=== PATIENT | male | born 1945 | race Caucasian/White ===

== ENCOUNTER 2018-09-20 18:42 | Emergency (ER) | payer OTHER ==
[~2018-09-20] VITALS: Ht 182.9 cm; Wt 78.5 kg
[~2018-09-20 18:42] MED LIST: AMILORIDE HCL5 MG; AMLODIPINE BESY10 MG PO; ASPIRIN CHEW81 MG PO; ATENOLOL100 MG PO; LEVOTHYROXINE75 MCG PO; LOSARTAN POTASS50 MG PO; METFORMIN HCL500 MG PO; OMEPRAZOLE20 MG; PEPCID20 MG PO; PLAVIX75 MG PO; PRAVASTATIN SOD40 MG PO; ZOLPIDEM TARTRA10 MG PO
--- OUTSIDE RECORDS SUMMARY | 2018-09-20 18:45 | XMS REPORT ---
Author [facility] Address Unknown Phone Unavailable Care Team Providers Care Director Oracle Database Name Role Phone Walter HOFFMAN Unavailable Unavailable Problems This patient has no known problems. Allergies, Adverse Reactions, Alerts This patient has no known allergies or adverse reactions. Medications This patient has no known medications. Results Test Description Test Time Test Comments Text Results Atomic Results Result Comments CHEST 2 VIEWS [place] [address] Patient Name: JIM RIVERA MR #: [id number] : 1945 Age/Sex: 71/M Req #: [id number] Adm Physician: Ordered by: KRYSTA HOFFMAN MD Report #: [id number] Location: ER Room/Bed: Procedure: [id number] DX/CHEST 2 VIEWS Exam Date: 12/09/16 Exam Time: 2009 REPORT STATUS: Signed EXAMINATION: CHEST 2 VIEWS INDICATION: Hypertension COMPARISON: 05/27/2015 FINDINGS: TUBES and LINES: None. LUNGS: Lungs are well inflated. There are bibasilar atelectasis. There is no evidence of pneumonia or pulmonary edema. PLEURA: No pleural effusion or pneumothorax. HEART AND MEDIASTINUM: The cardiomediastinal silhouette is unremarkable. There are atherosclerotic calcifications within the aorta. BONES AND SOFT TISSUES: No acute osseous lesion. Soft tissues are unremarkable. UPPER ABDOMEN: No free air under the diaphragm. IMPRESSION: No acute thoracic abnormality. Signed by: Dr. Chris Rivas M.D. on 12/09/2016 8:29 PM Dictated By: CHRIS SEAMAN MD 28 Transcribed By: WILLA on 12/09/162028 COPY TO: KRYSTA HOFFMAN MD CT BRAIN WO [place] [address] Patient Name: JIM RIVERA MR #: [id number] : 1945 Age/Sex: 71/M Req #: [id number] Adm Physician: Ordered by: KRYSTA HOFFMAN MD Report #: [id number] Location: ER Room/Bed: Procedure: [id number] CT/CT BRAIN WO Exam Date: 12/09/16 Exam Time: 2009 REPORT STATUS: Signed EXAMINATION: Head CT without contrast. HISTORY:Dizziness, high blood pressure. COMPARISON:CT brain from 02/19/2014. TECHNIQUE: Multidetector axial images were obtained from the foramen magnum to the vertex without contrast. The images were reconstructed using brain and bone algorithms. Thin section brain images were reformatted into coronal and sagittal planes. Intravenous contrast: None IMAGE QUALITY: Acceptable . FINDINGS: Skull/scalp: No abnormality. Parenchyma: No abnormal density. No acute hemorrhage, mass or acute major vascular territorial infarct. Arteries: Atherosclerotic calcification in bilateral carotid siphon. Dural sinuses: No abnormal density suggestive of thrombosis. Ventricles: No hydrocephalus or displacement. Extra- axial spaces: No abnormal density. Brain volume: Moderate generalized cerebral volume loss Craniocervical junction: No mass, Chiari malformation, or basilar invagination. Sella: No mass. Paranasal/mastoid sinuses: Mild mucosal thickening in bilateral ethmoid sinuses. Incidental finding: Unchanged focal dystrophic calcification in right sylvian fissure may either represent a sequelae of prior infe ction/inflammation or trauma versus a vascular calcification. IMPRESSION: No acute intracranial abnormality. Moderate generalized cerebral volume loss. Signed by: Dr. Erin Perez M.D. on 12/09/2016 8:33 PM Dictated By: ERIN PEREZ MD 32 Transcribed By: WILLA on 12/09/162032 COPY TO: KRYSTA HOFFMAN MD
--- OUTSIDE RECORDS SUMMARY | 2018-09-20 18:45 | XMS REPORT ---
Author Organization Unknown Address [address] [place] [address] Phone [phone] Care Team Providers Care Personal Financial Planner Name Role Phone NILO "DANYELLE" YUE RIOS 3 [phone] LUIS HUERTA 59 Unavailable SHASHANK ZAMBRANO MD 115 [phone] LUIS FELIPE MORGAN MD 109 [phone] Allergies Code Code System Name Reaction Severity Status Onset NKDA Medications Name Status Start Date Stop Date amlodipine 10 mg tablet Take 1 tablet every day by oral route for 90 days. Active Not available atenolol 100 mg tablet Take 1 tablet every day by oral route for 90 days. Active Not available bupropion HCl XL 150 mg 24 hr tablet, extended release Completed 12/06/2016 celecoxib 200 mg capsule Take 1 capsule every day by oral route for 90 days. Active Not available cyclobenzaprine 10 mg tablet Active Not available Depo-Medrol 80 mg/mL suspension for injection Inject 80 mg, deep IM, once as a single dose Completed 04/24/2016 dicyclomine 10 mg capsule Take 1 capsule 3 times a day by oral route for 30 days. Completed 12/06/2016 gabapentin 300 mg capsule Take 1 capsule 3 times a day by oral route at bedtime for 90 days. Active Not available Golytely 227.1 gram-21.5 gram-6.36 gram oral powder packet 4L PO in divided doses Completed 07/18/2016 Golytely 236 gram-22.74 gram-6.74 gram-5.86 gram oral solution 4L PO in divided doses Completed 07/18/2016 hydrocodone 10 mg-acetaminophen 325 mg tablet Active Not available levofloxacin 500 mg tablet Completed 07/18/2016 levothyroxine 75 mcg tablet Take 1 tablet by oral route for 90 days. Active Not available lidocaine 5 % topical ointment Completed 12/06/2016 losartan 100 mg tablet Take 1 tablet every day by oral route. Active Not available meclizine 12.5 mg tablet Active Not available metformin 500 mg tablet Active Not available methylprednisolone 4 mg tablets in a dose pack Completed 07/04/2017 naproxen 500 mg tablet Active Not available omeprazole 20 mg capsule,delayed release Take 1 capsule by oral route for 90 days. Active Not available pravastatin 80 mg tablet Take 1 tablet every day by oral route for 90 days. Active Not available zolpidem 10 mg tablet Take 1 tablet every day by oral route. 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 History Pure Hypercholesterolemia Active 01/06/2015 History Nicotine Dependence Active 01/06/2015 History Insomnia Unknown 01/06/2015 History Hypertensive Heart Disease Active 01/06/2015 History Old Myocardial Infarction Active 01/06/2015 History Osteoarthritis of Knee Active 01/06/2015 History History of Placement of Stent for Coronary Artery Disease Active 01/06/2015 History History of Total Knee Arthroplasty Active 01/06/2015 History Long-term Current Use of Drug Therapy Active 01/06/2015 History Pain in Left Knee Active 01/06/2015 History Idiopathic Osteoarthritis Active 03/16/2015 History Continuous Opioid Dependence Active 02/21/2016 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 History of Left Total Knee Replacement Active 02/21/2016 Chronic Low Back Pain Active 04/24/2016 Degenerative Lumbar Spinal Stenosis Active 05/23/2016 Procedures Date Name Performed by Knee Surgery Notes: 2012 Information not available Angioplasty Notes: 1999 Information not available Low Back Disk Surgery Notes: 1993 Information not available Tonsillectomy Notes: 1967 Information not available Hernia Repair Notes: 1962 Information not available 04/24/2016 MRI, Lumbar Spine, W/o Contrast [place] [employer] [facility] ([facility] Imaging) [address] [place] [address] (Work Place) Lab Results Date Name Specimen Result Interpretation Description Value Range Status Address 10/25/2016 CMP, Serum or Plasma Normal Glucose 90 mg/dL 65-99 mg/dL Final [facility] Laboratory: [address] Normal Urea Nitrogen (BUN) 21 mg/dL 7-25 mg/dL Final [facility]: [address] Normal Creatinine 1.00 mg/dL 0.70-1.18 mg/dL Final [facility]: 9055 Nancy Mendoza [address] [place] [address] Normal eGFR Non-afr. Gren[place] 74 mL/min/1.73m2 > or=60 mL/min/1.73m2 Final [facility]: [facility]055 [facility] eGFR 86 mL/min/1.73m2 > or=60 mL/min/1.73m2 Final [facility]: [address]055 Nancy Godoy [address] BUN/creatinine Ratio not applicable (calc) 6-22 (calc) Final [facility]: 9055 [facility] Normal Sodium 141 mmol/L 135-146 mmol/L Final [facility]: 9055 Nancy Mendoza [address] [place] [address] Normal Potassium 4.9 mmol/L 3.5-5.3 mmol/L Final [facility]: 9055 [facility] Normal Chloride 104 mmol/L 98-110 mmol/L Final [facility]: 9055 Nancy Mendoza [address] [place] [address] Normal Carbon Dioxide 31 mmol/L 20-31 mmol/L Final [facility]: 9055 Nancy Mendoza [address] [place] [address] Normal Calcium 9.7 mg/dL 8.6-10.3 mg/dL Final [facility]: 9055 [facility] Normal Protein, Total 7.4 g/dL 6.1-8.1 g/dL Final [facility]: 9055 Nancy Mendoza [address] [place] [address] Normal Albumin 4.6 g/dL 3.6-5.1 g/dL Final [facility]: 9055 [facility] Globulin 2.8 g/dL (calc) 1.9-3.7 g/dL (calc) Final [facility]: 9055 Nancy Mendoza [address] [place] [address] Normal Albumin/globulin Ratio 1.6 (calc) 1.0-2.5 (calc) Final [facility]: 9055 [facility] Normal Bilirubin, Total 1.0 mg/dL 0.2-1.2 mg/dL Final [facility]: 9055 [facility] Normal Alkaline Phosphatase 83 U/L 40-115 U/L Final [facility]: 9055 [facility] Normal Ast 26 U/L 10-35 U/L Final [facility]: 9055 Nancy Crump [place] Normal Alt 22 U/L 9-46 U/L Final [facility]: 9055 Nancy Crump, [place] 10/25/2016 T4, Total, Serum Normal T4 (Thyroxine), Total 10.5 mcg/dL 4.5-12.0 mcg/dL Final [facility]: 9055 [facility] 10/25/2016 TSH, Serum or Plasma Normal Tsh 2.45 mIU/L 0.40-4.50 mIU/L Final [facility]: 9055 Nancy Crump, [place] 10/25/2016 CBC W/ Auto Diff Normal White Blood Cell Count 8.5 thousand/uL 3.8-10.8 thousand/uL Final [facility]: 9055 Nancy Mendoza [address] [place] [address] Normal Red Blood Cell Count 5.16 million/uL 4.20-5.80 million/uL Final [facility]: 9055 [facility] Normal Hemoglobin 15.0 g/dL 13.2-17.1 g/dL Final [facility]: 9055 Nancy Mendoza [address] [place] [address] Normal Hematocrit 45.2 % 38.5-50.0 % Final [facility]: 9055 Nancy Crump [place] Normal Mcv 87.6 fL 80.0-100.0 fL Final [facility]: 9055 [facility] Normal Mch 29.1 pg 27.0-33.0 pg Final [facility]: 9055 [facility] Normal Mchc 33.2 g/dL 32.0-36.0 g/dL Final [facility]: 9055 [facility] Normal Rdw 12.8 % 11.0-15.0 % Final [facility]: 9055 Nancy Crump [place] Normal Platelet Count 338 thousand/uL 140-400 thousand/uL Final [facility]: 9055 [facility] Normal Mpv 9.3 fL 7.5-12.5 fL Final [facility]: 9055 [facility] Normal Absolute Neutrophils 4888 cells/uL 2762-9121 cells/uL Final [facility]: 9055 Nancy Godoy [place] [address] [place] Normal Absolute Lymphocytes 2491 cells/uL 850-3900 cells/uL Final [facility]: 9055 Nancy Godoy [facility] [place] Normal Absolute Monocytes 638 cells/uL 200-950 cells/uL Final [facility]: 9055 Nancy Godoy [facility] Absolute Eosinophils 434 cells/uL 15-500 cells/uL Final [facility]: 9055 Nancy Godoy [facility] [place] Normal Absolute Basophils 51 cells/uL 0-200 cells/uL Final [facility]: 9055 Nancy Godoy [place] [address], [place] Normal Neutrophils 57.5 % Final [facility]: 9055 Nancy landy [place] [address], [place] Normal Lymphocytes 29.3 % Final [facility]: 9055 Nancy Godoy [address] Normal Monocytes 7.5 % Final [facility]: 9055 Nancy Godoy [address] Normal Eosinophils 5.1 % Final [facility]: 9055 Nancy Godoy [address] Normal Basophils 0.6 % Final [facility] Laboratory: [address] 10/25/2016 HbA1C (Hemoglobin a1C), Blood High Hemoglobin a1C 5.9 % of total HGB <5.7 % of total HGB Final [facility]: [address] EAG (mg/dL) 123 (calc) Final [facility]: [address] EAG (mmol/L) 6.8 (calc) [facility]: [address] 10/25/2016 Testosterone, Total, Serum Normal Testosterone, Total, Males (Adult), Ia 268 NG/dL 250-827 NG/dL Final [facility]: 9055 [facility] 09/16/2015 LDL, Serum Ldl 57 09/16/2015 HbA1C (Hemoglobin a1C), Blood A1C 6.0 Urinalysis, Dipstick Color Color dark yellow [facility] [place]: [address], [place] Color Appearance clear [facility]: [address], [place] Color Glucose negative [facility] [place]: [address], [place] Color Bilirubin negative [facility] [place]: [address], [place] Color Ketones negative [facility] [place]: [address] [place] [address], [place] Color Specific [place] 1.015 [facility]: [address] [place] [address], [place] Color Blood moderate [facility]: [address] [facility] [address], [place] Color PH 7.0 [facility]: [address] [facility] [address], [place] Color Protein 30 [facility]: [address] [facility] [address], [place] Color Urobilinogen 0.2 [facility]: [address] [place] [address], [place] Color Nitrites negative [facility]: [address] [place] [address], [place] Color Leukocytes negative [facility]: [address] [place] [address], [place] Past Encounters 07/04/2017 Body Mass Index 25-29 - Overweight; Hypertensive Heart Disease; Chronic Low Back Pain; Insomnia Disorder Related to Known Organic Factor; Long-term Current Use of Drug Therapy; Hypothyroidism; Pure Hypercholesterolemia; Pain in Left Knee; Gastroesophageal Reflux Disease; Nicotine Dependence; Atherosclerosis of Arteries of the Extremities; Chronic Obstructive Lung Disease Nilo Chairez MD: [address] [address], Ph. 05/21/2017 Hypertensive Heart Disease; Type 2 Diabetes Mellitus without Complication [place] Jackt: [address] [address], Ph. 04/09/2017 Body Mass Index 25-29 - Overweight; Type 2 Diabetes Mellitus; Insomnia Disorder Related to Known Organic Factor; History of Left Total Knee Replacement; Pain in Left Knee; Opioid Dependence; Mild Recurrent Major Depression Nilo Chairez MD: [address] [address], Ph. 02/27/2017 Hypertensive Heart Disease; Type 2 Diabetes Mellitus without Complication Luis Jackt: [address] [address], Ph. 02/05/2017 Opioid Dependence; Pain in Left Knee; Hypertensive Heart Disease; Insomnia Disorder Related to Known Organic Factor; Pure Hypercholesterolemia; Gastroesophageal Reflux Disease; Nicotine Dependence; Immunization Nilo Chairez MD: [address] [address], Ph. 01/02/2017 Hypertensive Heart Disease; Type 2 Diabetes Mellitus without Complication Cassaine Huerta: 9055 [facility], [address] [address], Ph. 12/26/2016 Cassaine Huerta: [address] [address], Ph. 12/25/2016 Postural Dizziness Nilo Chairez MD: [address] [address], Ph. 12/06/2016 Pain in Left Knee; Hypothyroidism; Insomnia Disorder Related to Known Organic Factor Nilo Chairez MD: [address] [address], Ph. 10/25/2016 Adult Health Examination; Body Mass Index 25-29 - Overweight; Type 2 Diabetes Mellitus without Complication; Hypertensive Heart Disease; History of Placement of Stent for Coronary Artery Disease; Mild Recurrent Major Depression; History of Left Total Knee Replacement; Testicular Hypofunction; Old Myocardial Infarction; Continuous Opioid Dependence; Degenerative Lumbar Spinal Stenosis; Pain in Left Knee; Hypothyroidism; Nicotine Dependence; Insomnia Disorder Related to Known Organic Factor; Advance Directive Discussed with Patient; Screening for Malignant Neoplasm of Prostate; Screening for Malignant Neoplasm of Colon Nilo Chairez MD: [address] [address], Ph. 10/09/2016 Hypertensive Heart Disease; Type 2 Diabetes Mellitus without Complication Cassaine Huerta: [address] [address], Ph. 09/25/2016 Pain in Left Knee; History of Left Total Knee Replacement; Type 2 Diabetes Mellitus without Complication; Hypertensive Heart Disease; Old Myocardial Infarction; Insomnia Disorder Related to Known Organic Factor Nilo Chairez MD: [address] [address], Ph. 09/01/2016 Cassaine Huerta: [address] [address], Ph. 08/17/2016 Pain in Left Knee Nilo Chairez MD: 86197 [facility], [place] [address], [place] [address], Ph. 08/14/2016 Luis Jackt: 9055 Nancy [facility], [place] [address], [place] [address], Ph. 07/31/2016 Danna Chairez: [address] [place] [address], [place] [address], Ph. 07/18/2016 Hypertensive Heart Disease; Pain in Left Knee; Insomnia Disorder Related to Known Organic Factor; Gastroesophageal Reflux Disease; Moderate Recurrent Major Depression Nilo Chairez MD: 79505 [facility], [address] [address], Ph. 07/13/2016 Luis Jackt: [address] [address], Ph. 06/27/2016 Painless Rectal Bleeding; Cholelithiasis without Obstruction; Chronic Low Back Pain Nilo Chairez MD: 26356 [facility], [address] [address], Ph. 06/21/2016 Pain in Left Knee; Insomnia Disorder Related to Known Organic Factor; Degenerative Lumbar Spinal Stenosis Nilo Chairez MD: 38583 [facility], [address] [address], Ph. 06/06/2016 Luis Huerta: [address] [address], Ph. 05/23/2016 Type 2 Diabetes Mellitus; Hypothyroidism; Insomnia Disorder Related to Known Organic Factor; Pain in Left Knee; Pure Hypercholesterolemia; Degenerative Lumbar Spinal Stenosis; Sensory Disorder of Smell And/or Taste; Blood in Urine Nilo Chairez MD: 18034 [facility], [address] [address], Ph. 05/10/2016 Luis Huerta: 9[facility] [address] [address], Ph. 04/25/2016 Luis Huerta: 9055 Nancy [facility], [facility] [address] [address], Ph. 04/24/2016 Mononeuropathy of Lower Limb; Chronic Low Back Pain; Type 2 Diabetes Mellitus; Pain in Left Knee; Pure Hypercholesterolemia; Insomnia Disorder Related to Known Organic Factor; Continuous Opioid Dependence Nilo Chairez MD: [address] [address], Ph. 03/21/2016 Pain in Left Knee; Insomnia Disorder Related to Known Organic Factor; Hypertensive Heart Disease Nilo Chairez MD: [address] [address], Ph. 02/21/2016 Pain in Left Knee; History of Left Total Knee Replacement; Insomnia Disorder Related to Known Organic Factor; Idiopathic Osteoarthritis; Continuous Opioid Dependence Nilo Chairez MD: [address] [address], Ph. 01/05/2016 Hypothyroidism; Gastroesophageal Reflux Disease; Insomnia; Osteoarthritis of Knee; Pain in Left Knee; Essential Hypertension; Old Myocardial Infarction; Seasonal Allergic Rhinitis Nilo Chairez MD: [address] [address], Ph. Social History Smoking Status Heavy Tobacco Smoker (1/2 PPD) Vaccine List Vaccine Type influenza, high dose seasonal 02/05/20170.5 mL influenza, seasonal, injectable 01/07/2014 12/15/2014 pneumococcal polysaccharide PPV23 02/05/20170.5 mL pneumococcal, unspecified formulation 04/02/2012 Tdap 04/02/2007 Notes: decline's all vaccine's -07/04/2017-marty Plan of Care Patient Instructions Problem: The patient has a diagnosis of DIABETES Goal:The patients condition will be managed in the outpatient setting and the patients blood sugar will be within normal range. Interventions: -Educate the pt on the importance of blood glucose monitoring daily, keeping a log and taking medications as prescribed. - Educate the importance of eating small healthy meals such as fish chicken, complex carbohydrates-legumes, and whole grains, to stabilize blood sugars. (Refer to rodding anode worker if appropriate) -Educate pt on the s/s of hypoglycemia such as vertigo, CAICEDO, confusion, weakness, anxiety, nervousness, light headed, sweaty, hungry and rapid HR. -Educate patient if blood sugar is <70 or if having any symptoms of hypoglycemia, take one of followin/2 can of regular soda pop, 1 tablespoon of sugar, 1/2 cup of orange juice, or 1 cup of milk. -Educate pt on the S/S of hyperglycemia such as blurred vision, fatigue, CAICEDO, frequent urination, increased thirst. -Educate the pt that a HgAIC is an average of their blood glucose levels over the past 3 months and that it is important to have lab draw q3-6 months. -Educate the patient on importance of annual flu and pneumonia vaccinations -Educate pt that they will need a dilated eye exam and a comprehensive foot exam yearly, and a daily self exam of their feet.(check for dry, cracked skin, look for blisters, cuts scratches, or other sores, check for redness, increased warmth or tenderness when you touch an area, watch for ingrown toenails, corns, and calluses) -Educate pt that they will need a lipid profile yearly,(women)HDL>50LDL<100/TG<150/HDL>40 (men) -Educate the patient on consistent glucose monitoring and when to report values to the provider. Contact Provider if blood glucose is consistently > 240 after taking medications, or if blood glucose is < 60 or patient is symptomatic after interventions. Problem:The patient has a diagnosis of Hypertension Goal:The patients condition will be managed in the outpatient setting and blood pressure will be within normal limits. Interventions: -Encourage patient to take medication as prescribed. -Encourage patient to decrease sodium intake and eat fruits/vegetables. Limit processed foods and caffeinated drinks. -Encourage patient to monitor blood pressure and keep a log with readings. Bring readings to next scheduled appointment. -Encourage pt to exercise regularly 3-5 times a week for 30 min, unless the patients activity is restricted by the provider. Educate to stay at a healthy weight. Losing weight can lower your blood pressure -Educate patient that hypertension usually has no symptoms but some people may experience the following symptoms: blurred vision, fatigue, nose bleeds, chest pain, and swooshing sound in ears. -Educate pt to avoid smoking. Smoking can increase your risk for heart attack and stroke. Problem: The patient has a diagnosis of DIABETES Goal:The patients condition will be managed in the outpatient setting and the patients blood sugar will be within normal range. Interventions: -Educate the pt on the importance of blood glucose monitoring daily, keeping a log and taking medications as prescribed. - Educate the importance of eating small healthy meals such as fish chicken, complex carbohydrates-legumes, and whole grains, to stabilize blood sugars. (Refer to rodding anode worker if appropriate) -Educate pt on the s/s of hypoglycemia such as vertigo, CAICEDO, confusion, weakness, anxiety, nervousness, light headed, sweaty, hungry and rapid HR. -Educate patient if blood sugar is <70 or if having any symptoms of hypoglycemia, take one of followin/2 can of regular soda pop, 1 tablespoon of sugar, 1/2 cup of orange juice, or 1 cup of milk. -Educate pt on the S/S of hyperglycemia such as blurred vision, fatigue, CAICEDO, frequent urination, increased thirst. -Educate the pt that a HgAIC is an average of their blood glucose levels over the past 3 months and that it is important to have lab draw q3-6 months. -Educate the patient on importance of annual flu and pneumonia vaccinations -Educate pt that they will need a dilated eye exam and a comprehensive foot exam yearly, and a daily self exam of their feet.(check for dry, cracked skin, look for blisters, cuts scratches, or other sores, check for redness, increased warmth or tenderness when you touch an area, watch for ingrown toenails, corns, and calluses) -Educate pt that they will need a lipid profile yearly,(women)HDL>50LDL<100/TG<150/HDL>40 (men) -Educate the patient on consistent glucose monitoring and when to report values to the provider. Contact Provider if blood glucose is consistently > 240 after taking medications, or if blood glucose is < 60 or patient is symptomatic after interventions. Problem:The patient has a diagnosis of Hypertension Goal:The patients condition will be managed in the outpatient setting and blood pressure will be within normal limits. Interventions: -Encourage patient to take medication as prescribed. -Encourage patient to decrease sodium intake and eat fruits/vegetables. Limit processed foods and caffeinated drinks. -Encourage patient to monitor blood pressure and keep a log with readings. Bring readings to next scheduled appointment. -Encourage pt to exercise regularly 3-5 times a week for 30 min, unless the patients activity is restricted by the provider. Educate to stay at a healthy weight. Losing weight can lower your blood pressure -Educate patient that hypertension usually has no symptoms but some people may experience the following symptoms: blurred vision, fatigue, nose bleeds, chest pain, and swooshing sound in ears. -Educate pt to avoid smoking. Smoking can increase your risk for heart attack and stroke. Problem: The patient has a diagnosis of DIABETES Goal:The patients condition will be managed in the outpatient setting and the patients blood sugar will be within normal range. Interventions: -Educate the pt on the importance of blood glucose monitoring daily, keeping a log and taking medications as prescribed. - Educate the importance of eating small healthy meals such as fish chicken, complex carbohydrates-legumes, and whole grains, to stabilize blood sugars. (Refer to rodding anode worker if appropriate) -Educate pt on the s/s of hypoglycemia such as vertigo, CAICEDO, confusion, weakness, anxiety, nervousness, light headed, sweaty, hungry and rapid HR. -Educate patient if blood sugar is <70 or if having any symptoms of hypoglycemia, take one of followin/2 can of regular soda pop, 1 tablespoon of sugar, 1/2 cup of orange juice, or 1 cup of milk. -Educate pt on the S/S of hyperglycemia such as blurred vision, fatigue, CAICEDO, frequent urination, increased thirst. -Educate the pt that a HgAIC is an average of their blood glucose levels over the past 3 months and that it is important to have lab draw q3-6 months. -Educate the patient on importance of annual flu and pneumonia vaccinations -Educate pt that they will need a dilated eye exam and a comprehensive foot exam yearly, and a daily self exam of their feet.(check for dry, cracked skin, look for blisters, cuts scratches, or other sores, check for redness, increased warmth or tenderness when you touch an area, watch for ingrown toenails, corns, and calluses) -Educate pt that they will need a lipid profile yearly,(women)HDL>50LDL<100/TG<150/HDL>40 (men) -Educate the patient on consistent glucose monitoring and when to report values to the provider. Contact Provider if blood glucose is consistently > 240 after taking medications, or if blood glucose is < 60 or patient is symptomatic after interventions. Problem: The patient has a diagnosis of DIABETES Goal:The patients condition will be managed in the outpatient setting and the patients blood sugar will be within normal range. Interventions: -Educate the pt on the importance of blood glucose monitoring daily, keeping a log and taking medications as prescribed. - Educate the importance of eating small healthy meals such as fish chicken, complex carbohydrates-legumes, and whole grains, to stabilize blood sugars. (Refer to rodding anode worker if appropriate) -Educate pt on the s/s of hypoglycemia such as vertigo, CAICEDO, confusion, weakness, anxiety, nervousness, light headed, sweaty, hungry and rapid HR. -Educate patient if blood sugar is <70 or if having any symptoms of hypoglycemia, take one of followin/2 can of regular soda pop, 1 tablespoon of sugar, 1/2 cup of orange juice, or 1 cup of milk. -Educate pt on the S/S of hyperglycemia such as blurred vision, fatigue, CAICEDO, frequent urination, increased thirst. -Educate the pt that a HgAIC is an average of their blood glucose levels over the past 3 months and that it is important to have lab draw q3-6 months. -Educate the patient on importance of annual flu and pneumonia vaccinations -Educate pt that they will need a dilated eye exam and a comprehensive foot exam yearly, and a daily self exam of their feet.(check for dry, cracked skin, look for blisters, cuts scratches, or other sores, check for redness, increased warmth or tenderness when you touch an area, watch for ingrown toenails, corns, and calluses) -Educate pt that they will need a lipid profile yearly,(women)HDL>50LDL<100/TG<150/HDL>40 (men) -Educate the patient on consistent glucose monitoring and when to report values to the provider. Contact Provider if blood glucose is consistently > 240 after taking medications, or if blood glucose is < 60 or patient is symptomatic after interventions. Reminders Provider Appointments None recorded. Lab None recorded. Referral None recorded. Procedures None recorded. Surgeries None recorded. Imaging None recorded. Vitals 07/04/2017 10:15AM Est Patient Height Weight BMI Blood Pressure 5 ft 10 in 182 lbs 26.1 kg/m2 138/72 mm[Hg] 04/09/2017 01:45PM Est Patient Height Weight BMI Blood Pressure 5 ft 10 in 183.6 lbs 26.3 kg/m2 130/75 mm[Hg] 02/05/2017 01:45PM Est Patient Height Weight BMI Blood Pressure 5 ft 10 in 183 lbs 26.3 kg/m2 129/80 mm[Hg] 12/25/2016 03:30PM Est Patient Height Weight BMI Blood Pressure 5 ft 10 in 181.8 lbs 26.1 kg/m2 126/72 mm[Hg] 12/06/2016 03:45PM Est Patient Height Weight BMI Blood Pressure 5 ft 10 in 181.8 lbs 26.1 kg/m2 122/71 mm[Hg] 10/25/2016 02:30PM AWV Height Weight BMI Blood Pressure 5 ft 10 in 180 lbs 25.8 kg/m2 127/80 mm[Hg] 09/25/2016 03:00PM Est Patient Height Weight BMI Blood Pressure 5 ft 10 in 183 lbs 26.3 kg/m2 133/85 mm[Hg] 08/17/2016 02:30PM Est Patient Height Weight BMI Blood Pressure 5 ft 10 in 183.4 lbs 26.3 kg/m2 130/77 mm[Hg] 07/18/2016 01:45PM Est Patient Height Weight BMI Blood Pressure 5 ft 10 in 182.2 lbs 26.1 kg/m2 145/87 mm[Hg] 06/27/2016 04:15PM Est Patient Height Weight BMI Blood Pressure 5 ft 10 in 181.6 lbs 26.1 kg/m2 121/75 mm[Hg] 06/21/2016 01:30PM Est Patient Height Weight BMI Blood Pressure 5 ft 10 in 180 lbs 25.8 kg/m2 147/83 mm[Hg] 05/23/2016 01:30PM Est Patient Height Weight BMI Blood Pressure 5 ft 10 in 182.6 lbs 26.2 kg/m2 135/82 mm[Hg] 04/24/2016 02:30PM Est Patient Height Weight BMI Blood Pressure 5 ft 10 in 183 lbs 26.3 kg/m2 134/80 mm[Hg] 03/21/2016 02:30PM Est Patient Height Weight BMI Blood Pressure 5 ft 10 in 184 lbs 26.4 kg/m2 139/82 mm[Hg] 02/21/2016 02:45PM Est Patient Height Weight BMI Blood Pressure 5 ft 10 in 182.2 lbs 26.1 kg/m2 140/80 mm[Hg] 01/05/2016 11:00AM Est Patient Height Weight BMI Blood Pressure 5 ft 10 in 183.2 lbs 26.3 kg/m2 162/82 mm[Hg] 09/16/2015 Height Weight BMI Blood Pressure 5 ft 10 in 179.4 lbs 25.74 kg/m2 146/76 mm[Hg] 08/10/2015 Height Weight BMI Blood Pressure 5 ft 10 in 179.2 lbs 25.71 kg/m2 163/84 mm[Hg] 07/22/2015 Height Weight BMI Blood Pressure 5 ft 10 in 180 lbs 25.82 kg/m2 149/77 mm[Hg] 06/07/2015 Height Weight BMI Blood Pressure 5 ft 10 in 177.6 lbs 25.48 kg/m2 122/60 mm[Hg] 05/13/2015 BMI 25.54 kg/m2 05/13/2015 Height Weight Blood Pressure 5 ft 10 in 178 lbs 110/80 mm[Hg] 03/16/2015 Height Weight BMI Blood Pressure 5 ft 10 in 182.4 lbs 26.17 kg/m2 140/76 mm[Hg] 02/08/2015 Height Weight BMI Blood Pressure 5 ft 10 in 183.4 lbs 26.31 kg/m2 130/68 mm[Hg] 01/06/2015 Height Weight BMI Blood Pressure 5 ft 10 in 183.8 lbs 26.37 kg/m2 140/72 mm[Hg] 12/15/2014 Height Weight BMI Blood Pressure 5 ft 10 in 180.8 lbs 25.94 kg/m2 132/71 mm[Hg] 11/10/2014 Height Weight BMI Blood Pressure 5 ft 10 in 188 lbs 26.97 kg/m2 150/70 mm[Hg] 11/02/2014 Height Weight BMI Blood Pressure 5 ft 10 in 187.4 lbs 26.89 kg/m2 122/74 mm[Hg] 09/28/2014 Height Weight BMI Blood Pressure 5 ft 10 in 187.2 lbs 26.86 kg/m2 126/72 mm[Hg] 09/21/2014 Height Weight BMI Blood Pressure 5 ft 10 in 186.6 lbs 26.77 kg/m2 140/76 mm[Hg] 09/04/2014 Height Weight BMI Blood Pressure 5 ft 10 in 181.4 lbs 26.03 kg/m2 132/76 mm[Hg] 08/03/2014 Height Weight BMI Blood Pressure 5 ft 10 in 184.6 lbs 26.48 kg/m2 134/70 mm[Hg] 07/10/2014 Height Weight BMI Blood Pressure 5 ft 10 in 183.4 lbs 26.31 kg/m2 120/71 mm[Hg] 06/08/2014 Height Weight BMI Blood Pressure 5 ft 10 in 186.8 lbs 26.80 kg/m2 120/60 mm[Hg] 05/12/2014 Height Weight BMI Blood Pressure 5 ft 10 in 186 lbs 26.69 kg/m2 120/70 mm[Hg] 04/14/2014 Weight Blood Pressure 183.2 lbs 120/70 mm[Hg] 04/14/2014 Height BMI 5 ft 10 in 26.28 kg/m2 03/30/2014 Height Weight BMI Blood Pressure 5 ft 10 in 183.8 lbs 26.37 kg/m2 122/70 mm[Hg] 03/11/2014 Height Weight BMI Blood Pressure 5 ft 10 in 185.6 lbs 26.63 kg/m2 130/70 mm[Hg] 02/24/2014 Height Weight BMI Blood Pressure 5 ft 10 in 183.4 lbs 26.31 kg/m2 140/80 mm[Hg] 02/03/2014 Height Weight BMI Blood Pressure 5 ft 10 in 184.6 lbs 26.48 kg/m2 130/70 mm[Hg] 01/07/2014 Weight Blood Pressure 186 lbs 130/80 mm[Hg] 01/07/2014 Height BMI 5 ft 10 in 26.69 kg/m2 01/06/2014 Height Weight BMI Blood Pressure 5 ft 10 in 186 lbs 26.69 kg/m2 130/80 mm[Hg] 11/26/2013 Height Weight 5 ft 10 in 185 lbs 11/05/2013 Height Weight 5 ft 10 in 189.6 lbs 09/10/2013 Height Weight 5 ft 10 in 188.8 lbs 06/16/2013 Height Weight 5 ft 10 in 197.6 lbs 04/21/2013 Height Weight 5 ft 10 in 195.6 lbs 04/04/2013 Height Weight 5 ft 10 in 196.2 lbs 03/17/2013 Height Weight 5 ft 10 in 198.9 lbs 01/02/2013 Height Weight 5 ft 10 in 199.2 lbs 12/11/2012 Height Weight 5 ft 10 in 200.8 lbs 11/28/2012 Height Weight 5 ft 10 in 201.8 lbs 07/10/2012 Height Weight 5 ft 10 in 191 lbs 05/27/2012 Height Weight 5 ft 10 in 189.4 lbs 12/12/2011 Height Weight 5 ft 10 in 197.2 lbs 11/13/2011 Height Weight 5 ft 10 in 201.6 lbs 09/29/2011 Height Weight 5 ft 10 in 201 lbs 08/31/2011 Height Weight 5 ft 10 in 176 lbs 08/09/2011 Height Weight 5 ft 10 in 201.6 lbs 06/21/2011 Height Weight 5 ft 10 in 203.2 lbs 05/26/2011 Height Weight 5 ft 10 in 204.6 lbs 04/14/2011 Height Weight 5 ft 10 in 199.8 lbs 02/06/2011 Height Weight 5 ft 10 in 199.2 lbs 12/19/2010 Height Weight 5 ft 10 in 197.6 lbs 10/05/2010 Height Weight 5 ft 10 in 197.6 lbs 07/11/2010 Height Weight 5 ft 10 in 199 lbs 07/05/2010 Height 5 ft 10 in 07/05/2010 Weight 199 lbs 03/18/2010 Height Weight 5 ft 10 in 202.6 lbs 03/11/2010 Height Weight 5 ft 10 in 204.4 lbs 03/07/2010 Height Weight 5 ft 10 in 204.6 lbs 12/23/2009 Height Weight 5 ft 10 in 204.2 lbs 11/11/2009 Weight 202 lbs 10/27/2009 Weight 202.6 lbs 08/23/2009 Weight 202 lbs 08/05/2009 Weight 202.6 lbs 06/23/2009 Weight 200 lbs 06/16/2009 Weight 199 lbs 06/09/2009 Height Weight 5 ft 10 in 196 lbs 02/03/2009 Weight 196 lbs 01/01/2009 Weight 196 lbs 12/30/2007 Weight 199 lbs 07/01/2007 Weight 195.3 lbs 03/14/2007 Weight 194.9 lbs 03/04/2007 Height Weight 6 ft 201.1 lbs 10/29/2006 Weight 200.2 lbs 05/31/2006 Weight 205.1 lbs 07/03/2005 Height Weight 6 ft 202 lbs 01/11/2005 Height Weight 6 ft 200 lbs 11/18/2004 Height Weight 6 ft 202 lbs 06/02/2004 Height Weight 6 ft 204 lbs
[2018-09-20] MEDS ORDERED: ASPIRIN 81 MG CHEW TAB PO ONE (19:45)
[2018-09-20 20:31] LABS: BASOPHILS # (AUTO) 0.1 (0.0-0.1); BASOPHILS % 0.6 % (0.0-1.0); EOSINOPHILS # (AUTO) 0.4 (0.0-0.4); EOSINOPHILS % 4.6 % (0.0-6.0); HEMATOCRIT 41.6 % (38.2-49.6); HEMOGLOBIN 14.1 g/dL (14.0-18.0); LYMPHOCYTES # (AUTO) 1.7 (1.0-3.2); LYMPHOCYTES % 19.8 % (18.0-39.1); MEAN CORPUSCULAR HEMOGLOBIN 31.1 pg (28-32); MEAN CORPUSCULAR HGB CONC 33.9 g/dL (31-35); MEAN CORPUSCULAR VOLUME 91.6 fL (81-99); MONOCYTES # (AUTO) 0.6 (0.2-0.8); MONOCYTES % 7.5 % (4.4-11.3); NEUTROPHILS # (AUTO) 5.7 (2.1-6.9); NEUTROPHILS % 67.3 % (38.7-80.0); PLATELET COUNT 283 x10e3/uL (140-360); RED BLOOD COUNT 4.54 x10e6/uL (4.3-5.7); RED CELL DISTRIBUTION WIDTH 14.1 % (11.7-14.4)
[2018-09-20 21:38] LABS: ALANINE AMINOTRANSFERASE 31 IU/L (0-55); ALBUMIN 3.7 g/dL (3.5-5.0); ALBUMIN/GLOBULIN RATIO 1.2 (0.8-2.0); ALKALINE PHOSPHATASE 95 IU/L (40-150); ANION GAP 13.5 mmol/L (8-16); BLOOD UREA NITROGEN 16 mg/dL (7-26); BUN/CREATININE RATIO 15 (6-25); CALCIUM 8.9 mg/dL (8.4-10.2); CARBON DIOXIDE 24 mmol/L (22-29); CHLORIDE 101 mmol/L (98-107); CREATINE KINASE 134 IU/L (30-200); CREATININE, SERUM 1.06 mg/dL (0.72-1.25); EST GLOMERULAR FILTRATION RATE > 60 ML/MIN (60-); GLUCOSE 104 mg/dL (74-118); POTASSIUM 3.5 mmol/L (3.5-5.1); SODIUM 135 mmol/L (136-145)
--- NOTE | 2018-09-20 23:03 | Diagnostic Imaging Report ---
History:Dizziness, rule out aneurysm. Comparison studies:No direct comparison, compared with report of CT brain from 12/09/2016. Technique: Axial images were obtained from the skull base to the vertex with and without contrast. Coronal and sagittal images reconstructed from the axial data. Multi-planar and 3-D reconstructed images were obtained. Dose modulation, iterative reconstruction, and/or weight based adjustment of the mA/kV was utilized to reduce the radiation dose to as low as reasonably achievable. Intravenous contrast: 100 cc of Isovue 370. Findings: CT head: Skull/scalp: No lytic or blastic. lesions. No surgical changes. Parenchyma: No abnormal density. No acute hemorrhage, mass or acute major vascular territorial infarct. Arteries: No density suggestive of thrombosis. Atherosclerotic calcification in bilateral carotid siphon. Dural sinuses: No abnormal density suggestive of thrombosis. Ventricles: No hydrocephalus or displacement. Extra-axial spaces: Prominent predominantly bilateral frontal extra-axial space possibly related to volume loss. Punctate dystrophic calcification in right sylvian fissure may represent sequelae of prior infection/inflammation or trauma versus vascular calcification. Brain volume: Generalized predominantly bifrontal cerebral volume loss. Craniocervical junction: No mass, Chiari malformation, or basilar invagination. Sella: No mass. Paranasal/mastoid sinuses: Moderate mucosal thickening in bilateral ethmoid sinuses. CTA head: Internal carotid arteries: Right: Moderate to severe atherosclerotic calcification in the cavernous, clinoid and supraclinoid segments. Well-circumscribed, saccular aneurysm with lobulated margin at the junction of proximal and mid M1 segment of right middle cerebral artery approximately measures 0.6 x 0.6 x 0.4 cm (SAT) with a narrow neck measuring approximately 1.5 mm is directed anteriorly. 1.8 mm calcified lesion along the course of distal M3 segment of right middle cerebral artery possibly represents a calcified aneurysm (image 132, series 5). Left: Moderate atherosclerotic calcification in left cavernous, clinoid and supraclinoid segments. Patent bilateral M1 and A1 segments. Vertebral arteries: Patent. Basilar artery: Patent. Posterior cerebral arteries: Patent. Anatomical variants: Anterior communicating artery :Present Posterior communicating arteries: Patent on right, not visualized on left. Vertebral arteries: Codominant. IMPRESSION: CT head: 1. No acute intracranial abnormality. 2. Moderate predominantly bifrontal cerebral volume loss. CTA head: 1. 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 2. Moderate to severe atherosclerotic calcification in bilateral carotid siphon. Findings were informed to ER physician Dr. Carlisle by phone at 10:58 PM on 09/20/2018. Signed by: Dr. Erin Rodriguez M.D. on 09/20/2018 11:00 PM
[2018-09-20 23:34] VITALS: BP 158/73
[2018-09-20] MEDS ORDERED: SODIUM CHLORIDE 0.9% 100 ML 100 ML ONE (23:35)
[2018-09-20] MEDS ORDERED: IOPAMIDOL 370 MG/ML 200 ML INFUS..BTL INJ ONE (23:36)
== END 2018-09-21 00:10 | disposition home or self-care (01) ==
LOC: ER 18:42
DX: R42 Dizziness and giddiness (principal); R53.1 Weakness; I67.1 Cerebral aneurysm, nonruptured
CPT/HCPCS: 36415; 70496; 80053; 82550; 82553; 84484; 85025; 99284; Q9967

== ENCOUNTER 2019-11-23 18:28 | Observation (INO) | payer OTHER ==
[~2019-11-23] VITALS: Ht 182.9 cm; Wt 82.7 kg
--- OUTSIDE RECORDS SUMMARY | 2019-11-23 18:38 | XMS REPORT | Continuity of Care Document ---
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 Role Phone [employer] Information Exchange Unavailable Un available Problems Problem Status Onset Date Classification Date Reported Comments Source I67.1 Active 11/19/2018 [facility] 4 VESSEL DIAGNOSTIC CEREBRAL ANGIOGRAM Active 10/11/2018 [facility] R42 - DIZZINESS AND GIDDINESS Active 09/20/2018 [facility] Backache (finding) Resolved Problem 01/12/2019 [facility], WANDA Dick, [facility]ah Ida Medications Medication Details Route Status Patient Instructions Ordering Provider Order Date Source Acetaminophen 325 MG / Hydrocodone Guy trate 5 MG Oral Tablet [[place] 5/325] 1 tab, PO, Q6H, PRN for pain, X 7 day, # 30 tab, 0 Refill(s) Active 01/10/2019 [facility] Metformin hydrochloride 500 MG Oral Tablet 500 mg, Route: PO, Drug form: TAB, BID, Dosing Weight 90.955, kg, Priority: NOW, Start date: 01/10/19 9:39:00 CDT, Duration: 30 day, Stop date: 02/09/19 9:00:00 POOL CLEANER Inactive 01/10/2019 [facility] Docusate Sodium 100 MG Oral Capsule [Colace] 100 mg = 1 cap, PO, BID, # 28 cap, 0 Refill(s) Active 01/09/2019 [facility] sennosides, PENITENTIARY 8.6 MG Oral Tablet 17.2 mg = 2 tab, PO, Bedtime, PRN Constipation, X 10 day, # 20 tab, 0 Refill(s) Active 01/09/2019 [facility] Acetaminophen 300 MG / Codeine Phosphate 30 MG Oral Tablet [Tylenol with Codeine #3] 1 tab, PO, Q6H, PRN Pain, X 15 day, # 60 tab, 0 Refill(s) No Longer Active 01/09/2019 [facility] Ondansetron 4 MG Oral Tablet [Zofran] 4 mg = 1 tab, PO, Q8H, PRN Nausea/vomiting, # 30 tab, 0 Refill(s) Active 01/09/2019 [facility] nt phenytoin 100 mg oral capsule, extended release 300 mg = 3 cap, PO, QPM, # 90 cap, 1 Refill(s) Active 01/09/2019 [facility] Melatonin Notes: (Same as: Armida atonin) No Longer Active 01/08/2019 [facility] heparin Notes: porcine heparin No Longer Active 01/08/2019 [facility] Aspirin Notes: Take with food. No Longer Active 01/07/2019 [facility] Amlodipine Notes: (Same as: No rvasc) No Longer Active 01/07/2019 [facility] Atenolol 100 MG Oral Tablet No jamal: (Same As:Tenormin) No Longer Active 01/07/2019 [facility] ferrous sulfate Notes: Give wi th food. "Do Not Crush" No Longer Active 01/07/2019 [facility] Losartan Notes: (Same as: Coza ar) No Longer Active 01/07/2019 [facility] Thyroxine Notes: Take 1 hour b efore or 2 hours after meal; Enteral feeds may interefere with the absorption of this medication. (Same as:Synthroid, Levothroid) No Longer Active 01/07/2019 [facility] nt fosphenytoin Notes: (Same as: Cerebyx) Stated mg = mgPE. Refrigerate ANTICONVULSANT Do not confuse with celebrex. For adult patients only: Round to nearest 50 mg per Medical Staff approval MEDICATION WASTE Product Size: 500 mg Product Wasted: ___ mg Inactive 01/07/2019 [facility] Hydromorphone Notes: Same as D ilaudid Inactive 01/07/2019 [facility] Haldol Notes: (Same as: Haldol) Inactive 01/07/2019 [facility] fosphenytoin Notes: (Same as: Cerebyx) Stated mg = mgPE. Refrigerate ANTICONVULSANT Do not confuse with celebrex. For adult patients only: Round to nearest 50 mg per Medical Staff approval MEDICATION WASTE Product Size: 500 mg Product Wasted: ___ mg Inactive 01/07/2019 [facility] Iohexol 100 mL, Route: IVP, Dr ug Form: SOLN, Dosing Weight 90.955, kg, ONCALL, STAT, Start date: 01/07/19 0:49:00 CDT, Duration: 1 doses or times, Dose = 2.2ml/kg, Max dose = 100ml -- "To be infused by Radi ology Staff ONLY" Inactive 01/07/2019 [facility] Dextrose 50% Syringe 12.5 gm, 25 mL, Route: IVP, Drug Form: INJ, Dosing Weight 90.955, kg, PRN, PRN Blood Glucose Results, Start date: 01/06/19 22:52:00 CDT, Duration: 30 day, Stop date: 02/05/19 21:51:00 POOL CLEANER, 0 No Longer Active 01/07/2019 [facility] Glucagon 1 mg, Route: IM, Drug form: PDR/INJ, PRN, Dosing Weight 90.955, kg, PRN Blood Glucose Results, Start date: 01/06/19 22:52:00 CDT, Duration: 30 day, Stop date: 02/05/19 21:51:00 POOL CLEANER, 0 No Longer Active 01/07/2019 [facility] Insulin regular Notes: (Same a s: Humulin R) Roll in palms of hands gently; Do not shake vigorously. WASTE: F/P - Black; E - Municipal Trash Bin Stable for 31 days at room temperature Expires in days from Date No Longer Active 01/07/2019 [facility] Potassium Chloride Notes: ([facility] e as: KCL) Infuse no faster than 10 mEq/hr if given peripherally. No Longer Active 01/07/2019 [facility] sodium phosphate Notes: Infuse over 4 hour. Do not infuse phosphorous concurrently in the same line as TPN or IVF that contains calcium. For double lumen central lines, phosphorous may be infused in a separate lumen from TPN. No Longer Active 01/07/2019 [facility] potassium phosphate Notes: ([facility] as: K Phosphate.) Do not infuse phosphorous concurrently in the same line as TPN or IVF that contains calcium. For double lumen central lines, phosphorous may be infused in a separate lumen from TPN. 1 mMol phoshate has 1.47 mEq potassium Infuse over 4 hours No Longer Active 01/07/2019 [facility] potassium phosphate-sodium phosphate 250 mg-280 mg-160 mg oral powder for reconstitution Notes: (Same as: Phos-NaK) Each 1.5 gm pkt has 250mg phosphorous. Mix w/2.5oz water and stir. No Longer Active 01/07/2019 [facility] Magnesium Sulfate Notes: WASTE : F/P - Sink; E - Municipal Trash Bin No Longer Active 01/07/2019 [facility] Magnesium Oxide Notes: (Same a s: Mag-Ox 400) Magnesium oxide [id number] elemental magnesium Dose=____mg magnesium oxide (___mg elemental magnesium) No Longer Active 01/07/2019 [facility] Calcium Gluconate Notes: WASTE : F/P - Sink; E - Municipal Trash Bin No Longer Active 01/07/2019 [facility] Calcium Carbonate 500 MG Chewable Tablet Notes: (Same As: Tums) Calcium Carbonate 500 mg = 200 mg elemental calcium Dose = mg calcium carbonate ( mg elemental calcium) No Longer Active 01/07/2019 [facility] Saline Flush 0.9% Notes: (Same as: BD Posiflush) No Longer Active 01/07/2019 [facility] Pravastatin Notes: (Same as: P ravachol) No Longer Active 01/07/2019 [facility] ceFAZolin (SCIP) Notes: (Same as Ancef) No Longer Active 01/07/2019 [facility] tramadol hydrochloride 50 MG Oral Tablet Notes: Not to exceed 400mg/day. (Same As: Ultram) Inactive 01/07/2019 [facility] Dilantin 300 mg, 3 cap, Route: PO, Drug form: ERCAP, QPM, Dosing Weight 84.091, kg, Priority: NOW, Start date: 01/06/19 18:28:00 CDT, Duration: 30 day, Stop date: 02/05/19 17:00:00 POOL CLEANER, 0 No Longer Active 01/06/2019 [facility] Docusate Notes: (Same as: Cola ce) (Do Not Crush) No Longer Active 01/06/2019 [facility] sennosides, PENITENTIARY Notes: (Same a s: Senokot) No Longer Active 01/06/2019 [facility] Dilantin Notes: (Same as: Dila ntin) Do not open, crush, or chew. Inactive 01/06/2019 [facility] Cefazolin Notes: (Same as Ance f) Inactive 01/06/2019 [facility] Insulin regular 5 unit, Route: IV, ONCE, Dosing Weight 84.091, kg, Start date: 01/06/19 15:23:00 CDT, Stop date: 01/06/19 15:23:00 CDT Inactive 01/06/2019 [facility] sugammadex (ANES) Route: IV, D rug form: SOLN, ONCE, Stop date: 01/06/19 15:15:00 CDT Inactive 01/06/2019 [facility] ondansetron (ANES) Route: IV, Drug form: INJ, ONCE, Stop date: 01/06/19 14:56:00 CDT Inactive 01/06/2019 [facility] Hydralazine 10 mg, Route: IVP, Q20Min, Dosing Weight 84.091, kg, PRN Elevated BP, Start date: 01/06/19 14:47:00 CDT, Duration: 2 doses or times, Stop date: Limited # of times Inactive 01/06/2019 [facility] Labetalol 10 mg, Route: IVP, Q 5Min, Dosing Weight 84.091, kg, PRN Elevated BP, Start date: 01/06/19 14:47:00 CDT, Duration: 5 doses or times, Stop date: Limited # of times Inactive 01/06/2019 [facility] Oxycodone Hydrochloride 5 MG Oral Tablet 10 mg, Route: PO, Drug form: TAB, Q4H, Dosing Weight 84.091, kg, PRN Pain Score 7-10, Start date: 01/06/19 14:47:00 CDT, Duration: 30 day, Stop date: 02/05/19 14:46:00 POOL CLEANER Inactive 01/06/2019 [facility] Oxycodone 5 mg, Route: PO, Gucci g form: LIQ, Q4H, Dosing Weight 84.091, kg, PRN Pain Score 7-10, Start date: 01/06/19 14:47:00 CDT, Duration: 30 day, Stop date: 02/05/19 14:46:00 POOL CLEANER Inactive 01/06/2019 [facility] Hydromorphone 0.5 mg, Route: I APPLIED STATISTICIAN, Q5Min, Dosing Weight 84.091, kg, PRN Pain Score 7-10, Start date: 01/06/19 14:47:00 CDT, Duration: 4 doses or times, Stop date: Limited # of times Inactive 01/06/2019 [facility] Flumazenil 0.2 mg, Route: IVP, PRN, Dosing Weight 84.091, kg, PRN Benzodiazepine Reversal, Initial dose, Start date: 01/06/19 14:47:00 CDT, Duration: 30 day, Stop date: 02/05/19 13:46:00 POOL CLEANER Inactive 01/06/2019 [facility] Naloxone 0.4 mg, Route: IVP, Q 2MIN, Dosing Weight 84.091, kg, PRN Narcotic Reversal, Start date: 01/06/19 14:47:00 CDT, Duration: 8 doses or times, Stop date: Limited # of times Inactive 01/06/2019 [facility] nt Ondansetron 4 mg, Route: IVP, ONCE, Dosing Weight 84.091, kg, PRN Nausea & Vomiting, Start date: 01/06/19 14:47:00 CDT Inactive 01/06/2019 [facility] Sodium Chloride 0.9% IV 1,000 mL 1,000 mL, Rate: 75 ml/hr, Infuse over: 13.3 hr, Route: IV, Dosing Weight 84.091 kg, Total Volume: 1,000, Start date: 01/06/19 14:25:00 CDT, Duration: 30 day, Stop date: 02/05/19 14:24:00 POOL CLEANER, 2.08, m2, 0 No Longer Active 01/06/2019 [facility] Labetalol 10 mg, 2 mL, Route: IVP, Drug form: INJ, Q15Min, Dosing Weight 84.091, kg, PRN Hypertension, Start date: 01/06/19 14:25:00 CDT, Duration: 30 day, Stop date: 02/05/19 13:24:00 POOL CLEANER, 0 No Longer Active 01/06/2019 [facility] Hydralazine Notes: (Same as: A presoline) Push over 5 minutes No Longer Active 01/06/2019 [facility] Ondansetron Notes: (Same as: Deloris kang) MEDICATION WASTE Product Size: 4 mg Product Wasted: ___ mg No Longer Active 01/06/2019 [facility] Acetaminophen 325 MG / Hydrocodone Guy trate 10 MG Oral Tablet [[place] 10/325] Notes: Do not exceed 4gm/day of acetamin ophen. (Same as: [place] 325/10) Inactive 01/06/2019 [facility] Dilaudid Notes: Same as Dilaud id Inactive 01/06/2019 [facility] Benadryl Notes: (Same as: Taylor dryl) Inactive 01/06/2019 [facility] phenol Notes: Chloraseptic Spr ay (Same as: Chloraseptic, Sore Throat [place]) WASTE: F/P - Black; E - Municipal Trash Bin No Longer Active 01/06/2019 [facility] Bisacodyl Notes: (Same As: Dul colax, Bisco-Lax) No Longer Active 01/06/2019 [facility] Robaxin Notes: (Same as:Robaxi n) No Longer Active 01/06/2019 [facility] Melatonin 3 MG Extended Release Tablet Notes: (Same as: Melatonin) No Longer Active 01/06/2019 [facility] Tylenol Notes: Do not exceed 4 gm/day. (Same as: Tylenol) No Longer Active 01/06/2019 [facility] Reglan Notes: (Same as: Reglan) No Longer Active 01/06/2019 [facility] Phenergan Notes: Do not give I V push. (Same as: Phenergan) No Longer Active 01/06/2019 [facility] Saline Flush 0.9% Notes: (Same as: BD Posiflush) No Longer Active 01/06/2019 [facility] sugammadex Notes: (Same as: Br idion) No Longer Active 01/06/2019 [facility] norepinephrine (ANES) Route: I V, Drug form: INJ, ONCE, Stop date: 01/06/19 13:55:00 CDT Inactive 01/06/2019 [facility] vasopressin (ANES) Route: IV, Drug form: INJ, ONCE, Stop date: 01/06/19 13:45:00 CDT Inactive 01/06/2019 [facility] norepinephrine (ANES) 10 microgram Route: IV, Drug form: INJ, Start date: 01/06/19 13:40:00 CDT, Stop date: 01/06/19 14:40:00 CDT Inactive 01/06/2019 [facility] phenylephrine (ANES) Route: IV , Drug form: INJ, ONCE, Stop date: 01/06/19 13:25:00 CDT Inactive 01/06/2019 [facility] lidocaine (ANES) Route: IV, Dr ug form: INJ, ONCE, Stop date: 01/06/19 12:49:00 CDT Inactive 01/06/2019 [facility] propofol (ANES) Route: IV, Gucci g form: INJ, ONCE, Stop date: 01/06/19 12:49:00 CDT Inactive 01/06/2019 [facility] fentaNYL (ANES) Route: IV, Gucci g form: INJ, ONCE, Stop date: 01/06/19 12:49:00 CDT Inactive 01/06/2019 [facility] rocuronium (ANES) Route: IV, D rug form: INJ, ONCE, Stop date: 01/06/19 12:44:00 CDT Inactive 01/06/2019 [facility] dexamethasone (ANES) Route: IV , Drug form: INJ, ONCE, Stop date: 01/06/19 12:44:00 CDT Inactive 01/06/2019 [facility] ceFAZolin (ANES) Route: IV, Dr ug form: INJ, ONCE, Stop date: 01/06/19 12:38:00 CDT Inactive 01/06/2019 [facility] fosphenytoin (ANES) 1000 mg Ro bushra: IV, Drug form: INJ, Start date: 01/06/19 12:38:00 CDT, Stop date: 01/06/19 13:38:00 CDT Inactive 01/06/2019 [facility] SUFentanil (ANES) 50 microgram Route: IV, Drug form: INJ, Start date: 01/06/19 12:00:00 CDT, Stop date: 01/06/19 13:00:00 CDT Inactive 01/06/2019 [facility] propofol (ANES) 10 mg Route: I V, Drug form: INJ, Start date: 01/06/19 11:59:00 CDT, Stop date: 01/06/19 12:59:00 CDT Inactive 01/06/2019 [facility] Sodium Chloride 0.9% IV (ANES) 1000 mL Route: IV, Total Volume: 1,000, Start date: 01/06/19 11:24:00 CDT, Stop date: 01/06/19 12:24:00 CDT Inactive 01/06/2019 [facility] Lactated Ringers Injection IV (ANES) 1000 mL Route: IV, Total Volume: 1,000, Start date: 01/06/19 11:24:00 CDT, Stop date: 01/06/19 12:24:00 CDT Inactive 01/06/2019 [facility] ceFAZolin Notes: (Same as Nikhil fischer) Inactive 01/06/2019 [facility] Pravastatin 40 mg, PO, Bedtime Active 12/24/2018 [facility] Acetaminophen 325 MG / Hydrocodone Guy trate 10 MG Oral Tablet [[place] 10/325] 1 tab, PO, PRN, 0 Refill(s) No Longer Active 12/24/2018 [facility] Naproxen 500 mg, PO, PRN No Longer Active 12/24/2018 [facility] Flexeril 10 mg, PO, PRN Active 12/24/2018 [facility] Omnipaque 300 130 mL, Route: I NTRAARTERIAL, Dosing Weight 81.818, kg, ONCE, Start date: 10/30/18 8:58:00 CDT, Stop date: 10/30/18 8:58:00 CDT Inactive 10/30/2018 [facility] Fentanyl 50 microgram, Route: IV, ONCE, Dosing Weight 81.818, kg, Start date: 10/30/18 8:16:00 CDT, Stop date: 10/30/18 8:16:00 CDT Inactive 10/30/2018 [facility] Versed 1 mg, Route: IV, ONCE, Dosing Weight 81.818, kg, Start date: 10/30/18 8:15:00 CDT, Stop date: 10/30/18 8:15:00 CDT Inactive 10/30/2018 [facility] ferrous sulfate 325 mg oral enteric coated tablet 325 mg = 1 tab, PO, Daily, 0 Refill(s) Active 10/30/2018 [facility] Fish Oil 1000 mg oral capsule 1,000 mg = 1 cap, PO, TID, 0 Refill(s) Active 10/30/2018 [facility] Aspirin 325 MG Oral Tablet 325 mg = 1 tab, PO, Daily, 0 Refill(s) Active 10/30/2018 [facility] omeprazole 20 mg oral enteric coated tablet 20 mg = 1 tab, PO, Daily, 0 Refill(s) Active 10/30/2018 [facility] zolpidem 10 mg oral tablet 10 mg = 1 tab, PO, Bedtime, 0 Refill(s) Active 10/30/2018 [facility] levothyroxine 75 mcg (0.075 mg) oral tablet 75 microgram = 1 tab, PO, Daily, 0 Refill(s) Active 10/30/2018 [facility] Metformin hydrochloride 500 MG Oral Tablet 500 mg = 1 tab, PO, BID, 0 Refill(s) Active 10/30/2018 [facility] atorvastatin 40 mg oral tablet 40 mg = 1 tab, PO, Daily, 0 Refill(s) Active 10/30/2018 [facility] amLODIPine 10 mg oral tablet 1 0 mg = 1 tab, PO, Daily, 0 Refill(s) Active 10/30/2018 [facility] losartan 100 mg oral tablet 10 0 mg = 1 tab, PO, Daily, 0 Refill(s) Active 10/30/2018 [facility] Atenolol 100 MG Oral Tablet 10 0 mg = 1 tab, PO, Daily, 0 Refill(s) Active 10/30/2018 [facility] Allergies, Adverse Reactions, Alerts No Known Medication Allergies Immunizations No Data Provided for This Section Results Order Name Results Value Reference Range Date Interpretation Comments Source CARDIAC ENZYMES Troponin-I 0.03 0.00 - 0.40 01/09/2019 [facility] CHEM PANEL Magnesium Lvl 2.0 1.8 - 2.4 01/09/2019 [facility] CHEM PANEL Phosphorus 1.9 2.5 - 4.5 01/09/2019 [facility] CHEM PANEL Glucose Lvl 180 70 - 99 01/09/2019 [facility] CHEM PANEL BUN 32 7 - 22 01/09/2019 [facility] CHEM PANEL Creatinine Lvl 0.95 0.50 - 1.40 01/09/2019 [facility] CHEM PANEL Sodium Lvl 139 135 - 145 01/09/2019 [facility] CHEM PANEL Potassium Lvl 3.8 3.5 - 5.1 01/09/2019 [facility] CHEM PANEL Chloride Lvl 109 95 - 109 01/09/2019 [facility] CHEM PANEL CO2 21 24 - 32 01/09/2019 [facility] CHEM PANEL AGAP 12.8 10.0 - 20.0 01/09/2019 [facility] CHEM PANEL Calcium Lvl 8.9 8.5 - 10.5 01/09/2019 [facility] CHEM PANEL eGFR 78 01/09/2019 Result Comment: The eGFR is calculated using the CKD-EPI formula. In most young, healthy individuals the eGFR will be >90 mL/min/1.73m2. The eGFR declines with age. An eGFR of 60-89 may be normal in some populations, particularly the elderly, for whom the CKD-EPI formula has not been extensively validated. Use of the eGFR is not recommended in the following populations:

Individuals with unstable creatinine concentrations, including patients and those with serious co-morbid conditions.

Patients with extremes in muscle mass or diet.

The data above are obtained from the National Kidney Disease Education Program (NKDEP) which additionally recommends that when the eGFR is used in patients with extremes of body mass index for purposes of drug dosing, the eGFR should be multiplied by the estimated BMI. [facility] HEMATOLOGY Segs 75.6 45.0 - 75.0 01/09/2019 [facility] HEMATOLOGY Lymphocytes 14.5 20.0 - 40.0 01/09/2019 [facility] HEMATOLOGY Monocytes 7.8 2.0 - 12.0 01/09/2019 [facility] HEMATOLOGY Eosinophils 0.3 0.0 - 4.0 01/09/2019 [facility] HEMATOLOGY Basophils 1.8 0.0 - 1.0 01/09/2019 [facility] HEMATOLOGY Neutrophils # 10.6 1.5 - 8.1 01/09/2019 [facility] HEMATOLOGY Lymphocytes # 2.0 1.0 - 5.5 01/09/2019 [facility] HEMATOLOGY Monocytes # 1.1 0.0 - 0.8 01/09/2019 [facility] HEMATOLOGY Basophils # 0.3 0.0 - 0.2 01/09/2019 [facility] HEMATOLOGY WBC 14.0 3.7 - 10.4 01/09/2019 [facility] HEMATOLOGY RBC 4.05 4.70 - 6.10 01/09/2019 [facility] HEMATOLOGY Hgb 12.4 14.0 - 18.0 01/09/2019 [facility] HEMATOLOGY Hct 37.4 42.0 - 54.0 01/09/2019 [facility] HEMATOLOGY MCV 92.3 80.0 - 94.0 01/09/2019 [facility] HEMATOLOGY MCH 30.6 27.0 - 31.0 01/09/2019 [facility] HEMATOLOGY MCHC 33.2 32.0 - 36.0 01/09/2019 [facility] HEMATOLOGY RDW 14.4 11.5 - 14.5 01/09/2019 [facility] HEMATOLOGY Platelet 271 133 - 450 01/09/2019 [facility] HEMATOLOGY MPV 7.4 7.4 - 10.4 01/09/2019 [facility] PARATHYROID PROFILE Ca Ion WB 1.19 1.05 - 1.25 01/09/2019 [facility] PARATHYROID PROFILE Ca Norm WB 1.19 1.05 - 1.25 01/09/2019 [facility] CHEM PANEL Magnesium Lvl 2.1 1.8 - 2.4 01/08/2019 [facility] CHEM PANEL Phosphorus 2.2 2.5 - 4.5 01/08/2019 [facility] ELECTROLYTES AGAP 13.5 10.0 - 20.0 01/08/2019 [facility] ELECTROLYTES Glucose Lvl 171 70 - 99 01/08/2019 [facility] ELECTROLYTES BUN 15 7 - 22 01/08/2019 [facility] ELECTROLYTES Creatinine Lvl 0.8 0 0.50 - 1.40 01/08/2019 [facility] ELECTROLYTES Sodium Lvl 140 135 - 145 01/08/2019 [facility] ELECTROLYTES Potassium Lvl 3.5 3.5 - 5.1 01/08/2019 [facility] ELECTROLYTES Chloride Lvl 109 95 - 109 01/08/2019 [facility] ELECTROLYTES CO2 21 24 - 32 01/08/2019 [facility] ELECTROLYTES Calcium Lvl 8.7 8.5 - 10.5 01/08/2019 [facility] ELECTROLYTES eGFR 88 01/08/2019 Result Comment: The eGFR is calculated using the CKD-EPI formula. In most young, healthy individuals the eGFR will be >90 mL/min/1.73m2. The eGFR declines with age. An eGFR of 60-89 may be normal in some populations, particularly the elderly, for whom the CKD-EPI formula has not been extensively validated. Use of the eGFR is not recommended in the following populations:

Individuals with unstable creatinine concentrations, including patients and those with serious co-morbid conditions.

Patients with extremes in muscle mass or diet.

The data above are obtained from the National Kidney Disease Education Program (NKDEP) which additionally recommends that when the eGFR is used in patients with extremes of body mass index for purposes of drug dosing, the eGFR should be multiplied by the estimated BMI. [facility] HEMATOLOGY WBC 18.2 3.7 - 10.4 01/08/2019 [facility] HEMATOLOGY RBC 4.34 4.70 - 6.10 01/08/2019 [facility] HEMATOLOGY Hgb 13.0 14.0 - 18.0 01/08/2019 [facility] HEMATOLOGY Hct 40.0 42.0 - 54.0 01/08/2019 [facility] HEMATOLOGY MCV 92.1 80.0 - 94.0 01/08/2019 [facility] HEMATOLOGY MCH 29.9 27.0 - 31.0 01/08/2019 [facility] HEMATOLOGY MCHC 32.5 32.0 - 36.0 01/08/2019 [facility] HEMATOLOGY RDW 14.5 11.5 - 14.5 01/08/2019 [facility] HEMATOLOGY Platelet 256 133 - 450 01/08/2019 [facility] HEMATOLOGY MPV 7.4 7.4 - 10.4 01/08/2019 [facility] HEMATOLOGY Segs 76.1 45.0 - 75.0 01/08/2019 [facility] HEMATOLOGY Lymphocytes 14.8 20.0 - 40.0 01/08/2019 [facility] HEMATOLOGY Monocytes 8.1 2.0 - 12.0 01/08/2019 [facility] HEMATOLOGY Eosinophils 0.1 0.0 - 4.0 01/08/2019 [facility] HEMATOLOGY Basophils 0.9 0.0 - 1.0 01/08/2019 [facility] HEMATOLOGY Neutrophils # 13.8 1.5 - 8.1 01/08/2019 [facility] HEMATOLOGY Lymphocytes # 2.7 1.0 - 5.5 01/08/2019 [facility] HEMATOLOGY Monocytes # 1.5 0.0 - 0.8 01/08/2019 [facility] HEMATOLOGY Basophils # 0.2 0.0 - 0.2 01/08/2019 [facility] PARATHYROID PROFILE Ca Ion WB 1.07 1.05 - 1.25 01/08/2019 [facility] PARATHYROID PROFILE Ca Norm WB 1.09 1.05 - 1.25 01/08/2019 [facility] CHEM PANEL Total Protein 6.5 6.4 - 8.4 01/07/2019 [facility] CHEM PANEL Albumin Lvl 3.6 3.5 - 5.0 01/07/2019 [facility] CHEM PANEL ALT 33 0 - 65 01/07/2019 [facility] CHEM PANEL AST 23 0 - 37 01/07/2019 [facility] CHEM PANEL Alk Phos 57 39 - 136 01/07/2019 [facility] CHEM PANEL Bili Total 0.8 0.2 - 1.3 01/07/2019 [facility] CHEM PANEL Bili Direct 0.2 0.0 - 0.3 01/07/2019 [facility] CHEM PANEL Bili Indirect 0.6 0.0 - 1.0 01/07/2019 [facility] CHEM PANEL Globulin 2.9 2.7 - 4.2 01/07/2019 [facility] CHEM PANEL A/G Ratio 1.2 0.7 - 1.6 01/07/2019 [facility] TOXICOLOGY Phenytoin Free 1.15 1.00 - 2.00 01/07/2019 [facility] CARDIAC ENZYMES Troponin-I <0.02 0.00 - 0.40 01/07/2019 [facility] CHEM PANEL Total Protein 6.6 6.4 - 8.4 01/07/2019 [facility] CHEM PANEL Albumin Lvl 3.7 3.5 - 5.0 01/07/2019 [facility] CHEM PANEL ALT 35 0 - 65 01/07/2019 [facility] CHEM PANEL AST 24 0 - 37 01/07/2019 [facility] CHEM PANEL Alk Phos 61 39 - 136 01/07/2019 [facility] CHEM PANEL Bili Total 0.9 0.2 - 1.3 01/07/2019 [facility] CHEM PANEL Bili Direct 0.3 0.0 - 0.3 01/07/2019 [facility] CHEM PANEL Bili Indirect 0.6 0.0 - 1.0 01/07/2019 [facility] CHEM PANEL Globulin 2.9 2.7 - 4.2 01/07/2019 [facility] CHEM PANEL A/G Ratio 1.3 0.7 - 1.6 01/07/2019 [facility] TOXICOLOGY Phenytoin Total 11.1 10.0 - 20.0 01/07/2019 [facility] TOXICOLOGY Phenytoin Free 0.90 1.00 - 2.00 01/07/2019 [facility] CHEM PANEL Glucose Lvl 224 70 - 99 01/07/2019 [facility] CHEM PANEL BUN 15 7 - 22 01/07/2019 [facility] CHEM PANEL Creatinine Lvl 1.01 0.50 - 1.40 01/07/2019 [facility] CHEM PANEL Sodium Lvl 142 135 - 145 01/07/2019 [facility] CHEM PANEL Potassium Lvl 4.1 3.5 - 5.1 01/07/2019 [facility] CHEM PANEL Chloride Lvl 108 95 - 109 01/07/2019 [facility] CHEM PANEL CO2 18 24 - 32 01/07/2019 [facility] CHEM PANEL Calcium Lvl 8.1 8.5 - 10.5 01/07/2019 [facility] CHEM PANEL eGFR 72 01/07/2019 Result Comment: The eGFR is calculated using the CKD-EPI formula. In most young, healthy individuals the eGFR will be >90 mL/min/1.73m2. The eGFR declines with age. An eGFR of 60-89 may be normal in some populations, particularly the elderly, for whom the CKD-EPI formula has not been extensively validated. Use of the eGFR is not recommended in the following populations:

Individuals with unstable creatinine concentrations, including patients and those with serious co-morbid conditions.

Patients with extremes in muscle mass or diet.

The data above are obtained from the National Kidney Disease Education Program (NKDEP) which additionally recommends that when the eGFR is used in patients with extremes of body mass index for purposes of drug dosing, the eGFR should be multiplied by the estimated BMI. [facility] CHEM PANEL AGAP 20.1 10.0 - 20.0 01/07/2019 [facility] CHEM PANEL Magnesium Lvl 1.8 1.8 - 2.4 01/07/2019 [facility] CHEM PANEL Phosphorus 1.9 2.5 - 4.5 01/07/2019 [facility] HEMATOLOGY WBC 8.5 3.7 - 10.4 01/07/2019 [facility] HEMATOLOGY RBC 4.33 4.70 - 6.10 01/07/2019 [facility] HEMATOLOGY Hgb 13.4 14.0 - 18.0 01/07/2019 [facility] HEMATOLOGY Hct 40.2 42.0 - 54.0 01/07/2019 [facility] HEMATOLOGY MCV 92.9 80.0 - 94.0 01/07/2019 [facility] HEMATOLOGY MCH 30.9 27.0 - 31.0 01/07/2019 [facility] HEMATOLOGY MCHC 33.3 32.0 - 36.0 01/07/2019 [facility] HEMATOLOGY RDW 14.4 11.5 - 14.5 01/07/2019 [facility] HEMATOLOGY Platelet 257 133 - 450 01/07/2019 [facility] HEMATOLOGY MPV 7.3 7.4 - 10.4 01/07/2019 [facility] HEMATOLOGY Segs 95.2 45.0 - 75.0 01/07/2019 [facility] HEMATOLOGY Lymphocytes 2.0 20.0 - 40.0 01/07/2019 [facility] HEMATOLOGY Monocytes 2.8 2.0 - 12.0 01/07/2019 [facility] HEMATOLOGY Neutrophils # 8.1 1.5 - 8.1 01/07/2019 [facility] HEMATOLOGY Lymphocytes # 0.2 1.0 - 5.5 01/07/2019 [facility] HEMATOLOGY Monocytes # 0.2 0.0 - 0.8 01/07/2019 [facility] PARATHYROID PROFILE Ca Ion WB 1.06 1.05 - 1.25 01/07/2019 [facility] PARATHYROID PROFILE Ca Norm WB 1.03 1.05 - 1.25 01/07/2019 [facility] BACTERIAL - SEROLOGY MRSA by PCR Negative (01/06/19 11:26 PM) 01/07/2019 [facility] HEMATOLOGY PT 14.4 12.0 - 14.7 01/06/2019 [facility] HEMATOLOGY PTT 28.3 22.9 - 35.8 01/06/2019 [facility] HEMATOLOGY INR 1.14 0.85 - 1.17 01/06/2019 [facility] HEMATOLOGY RBC Morph Nida l (01/06/19 3:04 PM) Normal 01/06/2019 [facility] HEMATOLOGY Plt Morph Nida l (01/06/19 3:04 PM) Normal 01/06/2019 [facility] HEMATOLOGY Eosinophils 0.3 0.0 - 4.0 01/06/2019 [facility] HEMATOLOGY Basophils 0.5 0.0 - 1.0 01/06/2019 [facility] HEMATOLOGY Eosinophils # 0.1 0.0 - 0.5 01/06/2019 [facility] HEMATOLOGY Basophils # 0.1 0.0 - 0.2 01/06/2019 [facility] BLOOD BANK RESULTS ABO/Rh O POS 01/06/2019 [facility] BLOOD BANK RESULTS Antibody Scrn Negative (01/06/19 9:55 AM) 01/06/2019 [facility] CHEM PANEL B/C Ratio 19 6 - 25 12/23/2018 [facility] CHEM PANEL Globulin 3.1 2.7 - 4.2 12/23/2018 [facility] CHEM PANEL A/G Ratio 1.3 0.7 - 1.6 12/23/2018 [facility] CHEM PANEL Total Protein 7.2 6.4 - 8.4 12/23/2018 [facility] CHEM PANEL Albumin Lvl 4.1 3.5 - 5.0 12/23/2018 [facility] CHEM PANEL ALT 41 0 - 65 12/23/2018 [facility] CHEM PANEL AST 24 0 - 37 12/23/2018 [facility] CHEM PANEL Alk Phos 86 39 - 136 12/23/2018 [facility] CHEM PANEL Bili Total 0.7 0.2 - 1.3 12/23/2018 [facility] HEMATOLOGY PT 12.5 12.0 - 14.7 12/23/2018 [facility] HEMATOLOGY PTT 30.8 22.9 - 35.8 12/23/2018 [facility] HEMATOLOGY INR 0.95 0.85 - 1.17 12/23/2018 [facility] HEMATOLOGY TEG Interp Throm belastograph results are within reference ranges. These indicate adequate hemostasis. Note that TEG does not show effect of NSAIDs or P2Y12 inhibitors. CPT:30392 12/23/2018 [facility] HEMATOLOGY R-time 5.5 5.0 - 10.0 12/23/2018 [facility] HEMATOLOGY K-time 1.8 1.0 - 3.0 12/23/2018 [facility] HEMATOLOGY Angle 64.2 53.0 - 72.0 12/23/2018 [facility] HEMATOLOGY Max Amp 64.2 50.0 - 70.0 12/23/2018 [facility] HEMATOLOGY G-value 9.0 4.5 - 11.0 12/23/2018 [facility] HEMATOLOGY Ly30 0.2 0.0 - 7.5 12/23/2018 [facility] HEMATOLOGY Coag Index 0.7 -3.0-3.0 - 3.0 12/23/2018 [facility] HEMATOLOGY TEG Data See N ote (12/23/18 12:13 PM) 12/23/2018 [facility] HEMATOLOGY ASA Effect Plt 391 12/23/2018 [facility] HEMATOLOGY Eosinophils # 0.2 0.0 - 0.5 12/23/2018 [facility] Pathology Reports No Data Provided for This Section Diagnostic Reports Report Value Date Source Chest 1view DX EXAM: XR CHEST 1 VIEW DATE: 01/09/2019 8:21 CDT INDICATION: - chest pain that occurred after sneezing reproduced by palpation COMPARISON: 01/06/2019 TECHNIQUE: AP chest IMPRESSION: 1. Mild bibasilar subsegmental platelik e atelectatic changes are noted. Otherwise lungs are clear. Costophrenic recesses are sharp. Cardiomediastinal silhouette within normal limits. No acute osseous abnormalities. 01/09/2019 [facility] Brain wo contrast CT EXAM: CT BRAIN WITHOUT CONTRAST DATE: 01/07/2019 12:31 AM CDT INDICATION: - s/p MCA clipping COMPARISON: None TECHNIQUE: Routine axial images of the brain were obtained using a conventional ct scanner. Reformatted images in the sagittal and coronal plane were included. IV contrast: None. FINDINGS: A right pterional craniotomy has been performed. 2 aneurysm clips are present in the region of the right middle cerebral artery M1 segment. Expected pneumocephalus is seen along with a small volume of epidural blood products underlying the craniotomy site. Bilateral sylvian subarachnoid hemorrhage is present more prominent on the right than the left. There is a small amount of hypodensity in the right anterior temporal lobe which may reflect edema. No territorial infarct is evident. Incidental imaging of the orbits, paranasal sinuses, skull, and skull base also demonstrates no other interval change. IMPRESSION: Postoperative changes on the right resulting from placement of aneurysm clips along the right middle cerebral artery. In the absence of a recent preoperative study, stability of other findings indicated above cannot be assessed. 01/06/2019 [facility] Brain/Neck Stroke perfusion CTA ADDENDUM: Additional MIP images of the brain CT angiogram have been obtained. Review of these additional images demonstrates the presence of a focal stenosis of the peripheral right M1 segment immediately proximal to the location of the branch in which the aneurysm was located. Although the an accurate percent stenosis is difficult to determine as the vessels in this region are of such small caliber, the attenuation of the contrast column suggests that the measured percent stenosis of 66% may be a low estimate. EXAM: CT ANGIOGRAM OF THE BRAIN EXAM: CT ANGIOGRAM OF THE NECK EXAM: CT PERFUSION OF THE BRAIN DATE: 01/07/2019 12:31 AM CDT INDICATION: - s/p MCA clipping COMPARISON: Contemporaneous CT examination of the brain TECHNIQUE: - Dynamic CT perfusion images on a limit ed area of the brain parenchyma are performed during bolus injection of iodinated contrast material. Color maps of relative cerebral blood flow, relative cerebral blood volume, time to peak, and mean transit time are created on an independent workstation and are submitted along with the source image data. -Rapid acquisition spiral CT images of t he brain and neck were obtained between the aortic arch and the cranial vertex during intravenous infusion of iodinated contrast for the purposes of CT angiography. 3-D CT angiographic images are created using maximum intensity projection technique at the acquisition workstation. The source images are also presented for interpretation. IV contrast: 100 mL Omnipaque 350 FINDINGS: NECK CTA: Aortic arch: The great vessels originate from the aortic arch in the standard configuration. No origin stenosis is identified. The vertebral artery origins are patent bilaterally. Carotid arteries: The cervical common carotid arteries and cervical internal carotid arteries have a normal course. Despite diffuse atherosclerotic calcification being present in the distal common carotid arteries, the carotid bifurcations, and proximal internal carotid arteries, no flow-limiting narrowing is detected by NASCET criteria. The degree of stenosis (greater on the right than the left) is likely underestimated by this exam compared with the prior arteriogram as a consequence of the calcifications present. There is no evidence of vascular injury. Vertebral arteries:The vertebral arteries are co-dominant. The vertebral arteries have a normal course, caliber and contour. Bilateral parotid glands demonstrate the presence of hyperdense ovoid masses in their inferior aspects. As these appear to have a fatty hilum, they are likely intraparotid lymph nodes and are approximately 1 to 1.3 cm in size. The remaining soft tissues of the neck and other incidental structures are normal. BRAIN CTA: Right MCA M1 region aneurysm clips are identified. These cause considerable artifact obscuring the underlying vessel at the site of surgery. However, no obvious residual of the aneurysm is detected. More distally in the right middle cerebral artery there is a focal calcification within the posterior division. (Series 22 image 54). The vessel distal to the calcification opacifies normally. Anterior circulation: Otherwise normal appearance and a standard branching pattern. No branch occlusion, vascular injury, arteritis, vascular malformation or aneurysm is identified. Posterior circulation: Normal appearance and a standard branching pattern. No branch occlusion, vascular injury, arteritis, vascular malformation or aneurysm is identified. There is no evidence of cortical collateral circulation, collateral score is not applicable. The deep cerebral veins and major venous sinuses are normal. CT PERFUSION: There is no regional abnormality in cerebral blood flow, cerebral blood volume, or transit time in the imaged areas of the brain to suggest active oligemia or infarction. RAPID DATA: No cerebral blood flow abnormality is present. The cerebral transit time abnormality projects into the ventricular system and, therefore, is an artifact. IMPRESSION: 1. Extensive calcifications of the carot id arteries make a stenosis measurement inaccurate. Please see the results of the patient's previously performed catheter arteriogram for the most accurate assessment.. 2. No residual or other aneurysm is dete cted. 3. Normal CT perfusion. 4. Bilateral parotid masses. Given the p resence of fatty [place] these are felt to represent lymph nodes. Those on the left are over a centimeter in size. However, no associated lesion is detected in these may merely be reactive. (All qualitative and quantitative assess ments of carotid bifurcation and proximal internal carotid artery stenosis are made referencing the distal internal carotid artery {NASCET criteria}.) 01/06/2019 [facility] Chest 1 v for Placement DX EXA M: XR CHEST 1 VIEW DATE: 01/06/2019 15:03 CDT INDICATION: Line Placement - Chest 1 view for line placement. TECHNIQUE: Chest 1 view FINDINGS: Comparison is made to 11/21/2018. Cardiomediastinal silhouette is not significantly changed with aortic and left coronary artery calcifications. Bibasilar subsegmental atelectasis. No pleural effusions. A new right subclavian central venous catheter has its tip over the mid SVC. IMPRESSION: 1. New right subclavian central venous c atheter. 2. Bibasilar subsegmental atelectasis. 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 Pulmonary vascularity is normal. The heart size is normal. No acute bony abnormality is identified. IMPRESSION: No acute cardiopulmonary abnormality. 11/21/2018 [facility] Angiogram cervical artery bilateral VR PROCEDURE: 1. 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 He now presents for a formal cerebral angiogram to enable further management. REFERRING PROVIDER: Mazin Peters MD ATTENDING: Faisal Peters MD was present and immediately available for the entire procedure, performing all critical portions and reviewing all angiographic results. FELLOW: ANNETTE Prkaash MD COMPARISON: CTA head and neck FLUOROSCOPY TIME: 11.0 minutes CONTRAST: 130 cc MEDICATIONS: See medical records. RADIATION DOSE: Cumulative Air KERMA Frontal: 871.20 mGy Cumulative Air KERMA Lateral: 308.5 mGy PROCEDURE: Once informed consent was obtained describing all the risks, benefits and alternatives of the procedure the patient was brought to the interventional suite and placed in the supine position where moderate sedation was administered under the supervision of the attending physician. The patient was then prepped and draped in the usual sterile fashion. The right femoral artery was accessed using a single wall micropuncture technique and a 5-Macedonian sheath was placed. A 5-Macedonian Vert catheter was coaxially advanced over a 0.035 Terumo Glidewire through the sheath into the aorta arch to select the below mentioned arteries using roadmap technique. Two-dimensional angiography was performed in biplane projections. After review of the angiography data, the catheter was withdrawn. Right femoral artery angiogram was performed and the catheter was removed. The femoral artery sheath was removed and closed by the application of a Mynx closure device. Post procedure neurological examination was at the patient's baseline. The patient was was then transferred to interventional holding area for post procedure care. TASKS: 1. Left common carotid artery catheteriz ation and 2-D cervical angiogram 2. Left common carotid artery catheteriz ation and 2-D cerebral angiogram 3. Right common carotid artery catheteri zation and 2-D cervical angiogram 4. Right subclavian artery catheterizati on and 2-D cerebral angiogram 5. Right common femoral artery catheteri zation and 2-D angiogram 6. Application of Mynx vascular closure device FINDINGS: 1. Left common carotid artery: Left comm on carotid artery injection and cervical angiogram reveals normal antegrade flow into the external and internal carotid arteries with normal filling of the external carotid artery branches. There is approximately 50% stenosis of the proximal left internal carotid artery at the carotid bulb with associated atherosclerotic plaque extending from the distal left common carotid artery into the proximal internal carotid artery. 2. Left common carotid artery: Left common carotid artery injection and cerebral angiogram reveals normal antegrade flow into the left external carotid artery and branches. There is no evidence of abnormal intracranial communication or early venous shunting. There is normal antegrade filling of the distal internal carotid artery, ophthalmic artery, anterior cerebral artery, middle cerebral artery and the distal branches. Further inspection of the remaining left internal carotid artery circulation revealed no evidence of cerebral aneurysm, arteriovenous malformation, arterial stenosis or other vascular abnormalities. Capillary and venous phase images were also unremarkable with no evidence of venoocclusive disease. 3. Right common carotid artery: Right co mmon carotid artery injection and cervical angiogram reveals normal antegrade flow into the external and internal carotid arteries with normal filling of the external carotid artery branches. There is approximately 67% stenosis of the right proximal internal carotid artery just distal to the bulb with associated heavily calcified atherosclerotic plaque extending from the distal common carotid artery into the proximal internal carotid. 4. Right common carotid artery: Right co mmon carotid artery injection and cerebral angiogram reveals normal antegrade flow into the right external carotid artery and branches. There is no evidence of abnormal intracranial communication or early venous shunting. There is normal antegrade filling of the distal internal carotid artery, ophthalmic artery, anterior cerebral artery, middle cerebral artery and the distal branches. There is a laterally projecting MCA bifurcation aneurysm measuring approximately 6.1 mm x 3.8 mm x 3.9 mm (craniocaudal by lateral by anteroposterior dimensions) with both superior and inferior divisions arising from the dome of the aneurysm. 5. Right subclavian artery: Right subcla vian artery injection (with manual cuff applied to right upper extremity) and cerebral angiogram reveals antegrade filling of the vertebral artery, basilar artery and their respective branches. The ipsilateral PICA origin is visualized and there is no evidence of aneurysm, arterial stenosis, dissection or arteriovenous shunting. There is reflux into the ipsilateral right common carotid artery. 6. Right common femoral artery: Right co mmon femoral artery injection demonstrates arterial catheterization above the level of the bifurcation. There was no evidence of dissection or occlusion within the right common femoral artery. IMPRESSION: 1. There is a laterally projecting RIGHT MCA bifurcation aneurysm measuring approximately 6.1 mm x 3.8 mm x 3.9 mm (craniocaudal by lateral by anteroposterior dimensions) with both superior and inferior MCA divisions arising from the dome of the aneurysm. 2. There is approximately 67% stenosis o f the RIGHT proximal internal carotid artery just distal to the bulb with associated heavily calcified atherosclerotic plaque extending from the distal common carotid artery into the proximal internal carotid artery. 3. There is approximately 50% stenosis o f the proximal LEFT internal carotid artery at the carotid bulb with associated atherosclerotic plaque extending from the distal left common carotid artery into the proximal internal carotid artery. 10/30/2018 [facility] Spine lumbar wo contrast MRI S pine lumbar wo contrast MRI 10/17/2018 15:46 CDT CLINICAL: M54.16 Radiculopathy, lumbar region - M54.16 Radiculopathy, lumbar region COMPARISON: No prior exam. TECHNIQUE: Sagittal T1, sagittal T2 with fat saturation, axial T1 and axial T2 images were obtained. No intravenous gadolinium was given. FINDINGS: The conus medullaris terminates at the T12-L1 level. Mild dextrocurvature. Congenital shortened lumbar pedicles are seen, contributing to the spinal canal stenosis. T12-L1: 3 mm broad-based central disc protrusion with mild central canal stenosis. No foraminal stenosis. Right anterolateral osteophytes are present. L1-L2: Moderate thecal sac stenosis due to short pedicles, epidural lipomatosis, ligamenta flava thickening. Mild bilateral foraminal stenosis due to disc bulge encroachment. L2-L3: Significant disc narrowing is present with 3.5 mm disc bulge with posterior annular fissure. Moderate thecal sac stenosis. Mild bilateral foraminal stenosis due to disc osteophyte complex encroachment. L3-L4: Severe disc narrowing is present. 4.5 mm retrolisthesis. Moderate to severe thecal sac stenosis is present with epidural lipomatosis and 3 mm disc bulge. Severe bilateral foraminal stenosis is present. L4-L5: 5 mm anterolisthesis with 5 mm disc bulge. Right intracanalicular synovial cyst measures 10 x 15 mm with severe thecal sac stenosis and severe cauda equina crowding. Laminectomy has been performed. Severe bilateral foraminal stenosis due to disc bulge encroachment. L5-S1: Disc bulge with mild thecal sac stenosis and mild bilateral foraminal stenosis. IMPRESSION: 1. L4-L5 5 mm anterolisthesis. Large rig ht intracanalicular synovial cyst with severe thecal sac stenosis and cauda equina crowding. Severe bilateral foraminal stenosis. 2. L1-L2, L2-L3 moderate thecal sac sten osis. 3. L3-L4 moderate to severe thecal sac s tenosis. Severe bilateral foraminal stenosis. 10/17/2018 [facility] Brain wo contrast MRI Brain wo contrast MRI 10/04/2018 14:29 CDT HISTORY/INDICATIONS:73 years Male R42 Dizziness and giddiness - R42 Dizziness and giddiness TECHNIQUE: Multiplanar T1 and T2 weighted, DWI, FLAIR, and gradient echo sequences were obtained. CONTRAST: None COMPARISON: None FINDINGS: Diffusion weighted: No acute infarcts or areas of restricted diffusion Brain Parenchyma: --Brain volume: Moderate reduction brain volume. Prominent extra-axial CSF spaces over the bilateral frontoparietal temporal convexities and extending into the interhemispheric fissure, with a maximum thickness of about-7 mm bilaterally. This has appearance of a CSF subdural hygroma, causing some flattening of the cortical sulci and fissures. --Cortical guzman white juncture: Within n ormal limits. --White matter: A few tiny foci of incre ased T2 signal in the white matter. Ventricles: Mildly enlarged Vascular flow voids: Normal. A few enlarged perivascular spaces in the basal ganglia and subcortical white matter. Hemorrhage: Negative Old infarcts: Negative Other intracranial findings: Negative Skull: Negative --Calvarium: Negative --Scalp: Negative --Orbits: Normal --Pituitary sella: Within normal limits. --Mastoid air cells/middle ear/inner ear : Clear --Paranasal sinuses: Retention cysts or polyps in the left maxillary sinus and mild mucosal thickening in the ethmoid sinuses and bilateral maxillary sinuses. Visualized infracranial: Negative --Nasopharynx: Negative --Parotids: Negative --Stadium Manager space: Negative --C-spine: Negative IMPRESSION: 1. No evidence of acute stroke, acute h emorrhage, or mass lesion. 2. 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 3. Mucosal thickening in the ethmoid an d maxillary sinuses. [id number] 10/04/2018 WANDA Ghotra Consultation Notes No Data Provided for This Section Discharge Summaries No Data Provided for This Section History and Physicals No Data Provided for This Section Vital Signs Vital Sign Value Date Comments Source Temperature Oral (F) 97.6 F 01/10/2019 [facility] Heart Rate 82 01/10/2019 [facility] Respitory Rate 17 01/10/2019 [facility] Systolic (mm Hg) 129 01/10/2019 [facility] Diastolic (mm Hg) 72 01/10/2019 [facility] Temperature Oral (F) 97.6 F 01/10/2019 [facility] Heart Rate 83 01/10/2019 [facility] Respitory Rate 17 01/10/2019 [facility] Systolic (mm Hg) 133 01/10/2019 [facility] Diastolic (mm Hg) 72 01/10/2019 [facility] Temperature Oral (F) 97.6 F 01/10/2019 [facility] Heart Rate 81 01/10/2019 [facility] Respitory Rate 16 01/10/2019 [facility] Systolic (mm Hg) 138 01/10/2019 [facility] Diastolic (mm Hg) 81 01/10/2019 [facility] Height 182.88 cm 01/06/2019 [facility] Weight 90.955 01/06/2019 [facility] BMI Calculated 27.2 01/06/2019 [facility] Height 182.88 cm 01/06/2019 [facility] Weight 84.091 01/06/2019 [facility] BMI Calculated 25.14 01/06/2019 [facility] Height 182.88 cm 12/23/2018 [facility] Weight 85.8 12/23/2018 [facility] BMI Calculated 25.65 12/23/2018 [facility] Respitory Rate 11 10/30/2018 [facility] Systolic (mm Hg) 142 10/30/2018 [facility] Diastolic (mm Hg) 79 10/30/2018 [facility] Respitory Rate 11 10/30/2018 [facility] Systolic (mm Hg) 142 10/30/2018 [facility] Diastolic (mm Hg) 79 10/30/2018 [facility] Weight 81.818 10/30/2018 [facility] BMI Calculated 24.46 10/30/2018 [facility] Height 182.88 cm 10/30/2018 [facility] Height 182.88 cm 10/11/2018 [facility] Weight 85.455 10/11/2018 [facility] BMI Calculated 25.55 10/11/2018 [facility] Systolic (mm Hg) 162 10/11/2018 [facility] Diastolic (mm Hg) 84 10/11/2018 [facility] Heart Rate 82 10/11/2018 [facility] Encounters Location Location Details Encounter Type Encounter Number Reason For Visit Attending Provider ADM Date DC Date Status Source [facility] Phone Message [id number] 10/01/2018 10/03/2018 [facility] Outpatient [facility] - [facility] [id number] 00 Susan Palvavernon 10/04/2018 10/05/2018 [facility] Outpatient [id number] Mazin Peters 10/11/2018 [facility] Outpatient [id number] Mazin Peters 10/11/2018 10/12/2018 [facility] Outpatient [facility] - [facility] [id number] 01 Susan Healy 10/17/2018 10/18/2018 [facility] Phone Message [id number] 10/28/2018 10/30/2018 [facility] Neuro Outpatient [id number] Mazin Peters 10/30/2018 Active [facility] Bed[facility] Outpatient [id number] Mazin Peters 10/30/2018 10/30/2018 [facility] Neurosurgery [facility] Phone Message [id number] 11/01/2018 11/03/2018 [facility] Neuro Outpatient [id number] Mazin Peters 11/08/2018 [facility] Neuro[facility] Outpatient [id number] Mazin Peters 11/08/2018 11/09/2018 [facility] Neuro [facility] Phone Message [id number] 11/15/2018 [facility] Phone Message [id number] 11/18/2018 [facility]20[facility]2018 [facility] Outpatient Imaging [place] Out[facility] Diag Services [id number] 02 Honorio Funk 11/21/2018 11/22/2018 [facility] [place] [facility] Phone Message [id number] 11/27/2018 11/29/2018 [facility] [id number] Mazin Peters 01/06/2019 Active [facility] Inpatient [id number] Mazin Peters 01/06/2019 01/10/2019 [facility] Procedures Procedure Code Date Perfomer Comments Source Stent placement<sup>1</sup> 10 [id number] pt had a f ew spine surgstent Lashell Ivey,[facility], WANDA Jennings, [id number] [facility], [facility] Jennings, [facility] Laparoscopic repair of left inguinal her efrain using surgical mesh [id number] [facility] PCI - Percutaneous coronary intervention<sup>1</sup> [id number] x3 [facility] Procedure on back [id number] [facility] Stent placement<sup>2</sup> 10 [id number] pt had a f ew spine surgstent [facility] Tonsillectomy [id number] [facility] Assessment and Plan No Data Provided for This Section Plan of Care No Data Provided for This Section Social History Social History Date Source Social History TypeResponse Alcohol Current, Type Wine. Frequency: Daily. Smoking Status Reg Smoking Cessation Counseling No; Current some day smoker; Type: Cigarettes; Exposure to Tobacco Smoke Self; Cigarette Smoking Last 365 Days Yes1 entered on: 01/06/19 1Quit smoking regularly October 2018; sti ll "smokes 1 or 2 every few days" 12/24/2018 [facility] nter Social History TypeResponse Alcohol Current, Type Wine. Frequency: Daily. Previous treatment: None. Alcohol use interferes with work or home: No. Drinks more than intended: No. Others hurt by drinking: No. Ready to change: No. Household alcohol concerns: No. Smoking Status Current every day smoker; Type: Cigarettes; Ready to change: No; Concerns about tobacco use in household: No; Exposure to Tobacco Smoke None; Cigarette Smoking Last 365 Days No; Reg Smoking Cessation Counseling No entered on: 11/12/18 10/30/2018 [facility] Social History TypeResponse Alcohol Current, Type Wine. Frequency: Daily. Previous treatment: None. Alcohol use interferes with work or home: No. Drinks more than intended: No. Others hurt by drinking: No. Ready to change: No. Household alcohol concerns: No. Smoking Status Current every day smoker; Type: Cigarettes; Ready to change: No; Concerns about tobacco use in household: No; Exposure to Tobacco Smoke None; Cigarette Smoking Last 365 Days No; Reg Smoking Cessation Counseling No entered on: 11/12/18 10/30/2018 WAN[facility] Jennings Social History TypeResponse Alcohol Current, Type Wine. Frequency: Daily. Previous treatment: None. Alcohol use interferes with work or home: No. Drinks more than intended: No. Others hurt by drinking: No. Ready to change: No. Household alcohol concerns: No. Smoking Status Current every day smoker; Type: Cigarettes; Ready to change: No; Concerns about tobacco use in household: No; Exposure to Tobacco Smoke None; Cigarette Smoking Last 365 Days No; Reg Smoking Cessation Counseling No entered on: 10/11/18 10/11/2018 WAN[facility] Ghotra Family History No Data Provided for This Section Advance Directives No Data Provided for This Section Functional Status No Data Provided for This Section
--- OUTSIDE RECORDS SUMMARY | 2019-11-23 18:39 | XMS REPORT | Continuity of Care Document ---
Author Author [facility] t Organization [facility] Address [address] [place] [address] Phone Unavailable Care Team Providers Care Mixer Tender Name Role Phone YUE RIOS R (DANYELLE) NILO PCP [phone] Faisal Peters Attphys Honorio Funk Attphys Susan Healy Attphys Walter HOFFMAN Attphys Unavailable Faisal Peters Admphys Payers Payer Name Policy Type Policy Number Effective Date Expiration Date Khadar Blancas [id number] 2014 00:00:00 NELDA Escudero - [facility] Problems Condition Name Condition Details Condition Category Status Onset Date Resolution Date Last Treatment Date Treating Clinician Comments Source I67.1 I67. 1 Active 11/19/2018 [facility] Diagnosis Active 2018-11-19 00:00:00 2019-01-15 22:18:00 Shoshana Jennings 4 VESSEL DIAGNOSTIC CEREBRAL ANGIOGRAM 4 VESSEL DIAGNOSTIC CEREBRAL ANGIOGRAM Active 10/11/2018 [facility] Diagnosis Active 2018-10-11 00:00:00 2018-10-30 06:28:00 Shoshana Jennings R42 - DIZZINESS AND GIDDINESS R42 - DIZZINESS AND GIDDINESS Active 09/20/2018 [facility] Diagnosis Active 2018-09-20 00:01:00 2018-10-17 07:53:00 Shoshana Jennings Degenerative lumbar spinal stenosis Degenerative Lumbar Spinal S tenosis Problem Active 2016-05-23 00:00:00 [facility] Chronic low back pain Chronic Low Back Pain Problem Active 201 09-30-22 00:00:00 [facility] zenaida Continuous opioid dependence Continuous Opioid Dependence Problem Active 2016-02-21 00:00:00 [facility] 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 Problem Active 2016-02-21 00:00:00 [facility] History of left total knee replacement History of Left Total Knee Replacement Problem Active 2016-02-21 00:00:00 [facility] Fever Fever Problem Active 2015-05-27 00:00:00 [facility] Leukocytosis Leukocytosis Problem Active 2015-05-27 00:00:00 [facility] Pneumonia Pneumonia Problem Active 2015-05-27 00:00:00 [facility] Idiopathic osteoarthritis Idiopathic Osteoarthritis Problem Ac tive 2015-03-16 00:00:00 [facility] Hypothyroidism Hypothyroidism Problem Active 2015-01-06 00:00:00 [facility] Type 2 diabetes mellitus without complication Type 2 D iabetes Mellitus without Complication Problem Active 2015-01-06 00:00:00 [facility] Testicular hypofunction Testicular Hypofunction Problem Active 2015-01-06 00:00:00 [facility] Pure hypercholesterolemia Pure Hypercholesterolemia Problem Ac tive 2015-01-06 00:00:00 [facility] Nicotine dependence Nicotine Dependence Problem Active 2015-01-06 00:00 :00 [facility] Hypertensive heart disease Hypertensive Heart Disease Problem Active 2015-01-06 00:00:00 [facility] Old myocardial infarction Old Myocardial Infarction Problem Ac tive 2015-01-06 00:00:00 [facility] Osteoarthritis of knee Osteoarthritis of Knee Problem Active 2015-01-06 00:00:00 [facility] History of placement of stent for coronary artery dise ase History of Placement of Stent for Coronary Artery Disease Problem Active 2015-01-06 00:00:00 [facility] History of total knee arthroplasty History of Total Knee Arthrop lasty Problem Active 2015-01-06 00:00:00 [facility] Long-term current use of drug therapy Long-term Current Use of Drug Therapy Problem Active 2015-01-06 00:00:00 [facility] Pain in left knee Pain in Left Knee Problem Active 2015-01-06 00:00:00 [facility] Acute coronary syndrome ACS (acute coronary syndrome) Problem Active 2014-12-31 00:00:00 [facility] Chest pain Chest pain Problem Active 2014-12-31 00:00:00 [facility] Backache (finding) Back ache (finding) Resolved Problem 01/12/2019 [facility], PATJudah Jennings, OPIJudah MarxAstatula Problem Resolved 2019-01-12 21:41:04 Kong Jennings Insomnia Insomnia Problem Active 2015-01-06 00:00:00 2016-10-25 00:00:00 [facility] Allergies, Adverse Reactions, Alerts This patient has no known allergies or adverse reactions. Social History Social Habit Start Date Stop Date Quantity Comments Source Social History 2018-10-11 20:36:22 2018-10-11 20:36:22 Shoshana Jennings Smoking Status Start Date Stop Date Source Heavy Tobacco Smoker [facility] Medications Ordered Medication Name Filled Medication Name Start Date Stop Da te Current Medication? Ordering Clinician Indication Dosage Frequency Signature (SIG) Comments Components Source Acetaminophen 325 MG / Hydrocodone Bitartrate 5 MG Oral Tabl et [Altha 5/325] 2019-01-10 18:50:00 Yes 1 tab, PO, Q6H, PRN for pain, X 7 day, # 30 tab, 0 Refill(s) Shoshana Jennings Metformin hydrochloride 500 MG Oral Tablet 2019-01-10 14:39:00 No 500 mg, Route: PO, Drug form: TAB, BID, Dosing Weight 90.955, kg, Priority: NOW, Start date: 01/10/19 9:39:00 CDT, Duration: 30 day, Stop date: 02/09/19 9:00:00 [employer] Shoshana Jennings Docusate Sodium 100 MG Oral Capsule [Colace] 2019-01-09 16:28:00 Yes 100 mg = 1 cap, PO, BID, # 28 cap, 0 Refill(s) Shoshana Jennings sennosides, MCC 8.6 MG Oral Tablet 2019-01-09 16:28:00 Yes 17.2 mg = 2 tab, PO, Bedtime, PRN Constipation, X 10 day, # 20 tab, 0 Refill(s) Shoshana Jennings Acetaminophen 300 MG / Codeine Phosphate 30 MG Oral Tablet [Tylenol with Codeine #3] 2019-01-09 16:28:00 No 1 tab, PO, Q6H, PRN Pain, X 15 day, # 60 tab, 0 Refill(s) Shoshana Jennings Ondansetron 4 MG Oral Tablet [Zofran] 2019-01-09 16:28:00 Y es 4 mg = 1 tab, PO, Q8H, PRN Nausea/vomiting, # 30 tab, 0 Refill(s) [facility] Dick phenytoin 100 mg oral capsule, extended release 2019-01-09 16:28 :00 Yes 300 mg = 3 cap, PO, QPM, # 90 cap, 1 Refill(s) [facility] Dick Melatonin 2019-01-08 07:13:00 No Notes: (Sa me as: Melatonin) [facility] Dick heparin 2019-01-08 04:55:00 No Notes: porci ne heparin [facility] Aspirin 2019-01-07 14:00:00 No Notes: Take with food. [facility] Amlodipine 2019-01-07 14:00:00 No Notes: (S birgit as: Norvasc) [facility] Dick Atenolol 100 MG Oral Tablet 2019-01-07 14:00:00 No Notes: (Same As:Tenormin) [facility] ferrous sulfate 2019-01-07 14:00:00 No Notes: Give with food. "Do Not Crush" [facility] Losartan 2019-01-07 14:00:00 No Notes: (Zay e as: Cozaar) [facility] Thyroxine 2019-01-07 11:30:00 No Notes: Take 1 hour before or 2 hours after meal; Enteral feeds may interefere with the absorption of this medication. (Same as:Synthroid, Levothroid) [facility] fosphenytoin 2019-01-07 09:33:00 No Notes: (Same as: Cerebyx) Stated mg = mgPE. Refrigerate ANTICONVULSANT Do not confuse with celebrex. For adult patients only: Round to nearest 50 mg per Medical Staff approval MEDICATION WASTE Product Size: 500 mg Product Wasted: ___ mg [facility] Hydromorphone 2019-01-07 09:32:00 No Notes: Same as Dilaudid [facility] Haldol 2019-01-07 09:15:00 No Notes: (Same as: Haldol) [facility] fosphenytoin 2019-01-07 06:17:00 No Notes: (Same as: Cerebyx) Stated mg = mgPE. Refrigerate ANTICONVULSANT Do not confuse with celebrex. For adult patients only: Round to nearest 50 mg per Medical Staff approval MEDICATION WASTE Product Size: 500 mg Product Wasted: ___ mg Shoshana Jennings Iohexol 2019-01-07 05:49:00 No 100 mL, Route: IVP, Drug Form: SOLN, Dosing Weight 90.955, kg, ONCALL, STAT, Start date: 01/07/19 0:49:00 CDT, Duration: 1 doses or times, Dose = 2.2ml/kg, Max dose = 100ml -- "To be infused by Radiology Staff ONLY" Shoshana Patrick nn Dextrose 50% Syringe 2019-01-07 03:52:00 No 12.5 gm, 25 mL, Route: IVP, Drug Form: INJ, Dosing Weight 90.955, kg, PRN, PRN Blood Glucose Results, Start date: 01/06/19 22:52:00 CDT, Duration: 30 day, Stop date: 02/05/19 21:51:00 [employer], 0 Shoshana Jennings Glucagon 2019-01-07 03:52:00 No 1 mg, Route: IM, Drug form: PDR/INJ, PRN, Dosing Weight 90.955, kg, PRN Blood Glucose Results, Start date: 01/06/19 22:52:00 CDT, Duration: 30 day, Stop date: 02/05/19 21:51:00 [employer], 0 Shoshana Jennings Insulin regular 2019-01-07 03:52:00 No Notes: (Same as: Humulin R) Roll in palms of hands gently; Do not shake vigorously. WASTE: F/P - Black; E - Municipal Trash Bin Stable for 31 days at room temperature Expires in days from Date Shoshana Jennings Potassium Chloride 2019-01-07 03:36:00 No Notes: (Same as: KCL) Infuse no faster than 10 mEq/hr if given peripherally. [facility] Dick sodium phosphate 2019-01-07 03:36:00 No Notes: Infuse over 4 hour. Do not infuse phosphorous concurrently in the same line as TPN or IVF that contains calcium. For double lumen central lines, phosphorous may be infused in a separate lumen from TPN. Shoshana umanzor potassium phosphate 2019-01-07 03:36:00 No Notes: (Same as: K Phosphate.) Do not infuse phosphorous concurrently in the same line as TPN or IVF that contains calcium. For double lumen central lines, phosphorous may be infused in a separate lumen from TPN. 1 mMol phoshate has 1.47 mEq potassium Infuse over 4 hours [facility] potassium phosphate-sodium phosphate 250 mg-280 mg-160 mg oral powder for reconstitution 2019-01-07 03:36:00 No Notes: (Same as: Phos-NaK) Each 1.5 gm pkt has 250mg phosphorous. Mix w/2.5oz water and stir. [facility] Magnesium Sulfate 2019-01-07 03:36:00 No Notes: WASTE: F/P - Sink; E - Municipal Trash Bin [facility] Magnesium Oxide 2019-01-07 03:36:00 No Notes: (Same as: Mag-Ox 400) Magnesium oxide [id number] elemental magnesium Dose=____mg magnesium oxide (___mg elemental magnesium) [facility] Calcium Gluconate 2019-01-07 03:36:00 No Notes: WASTE: F/P - Sink; E - Municipal Trash [facility] Calcium Carbonate 500 MG Chewable Tablet 2019-01-07 03:36:00 No Notes: (Same As: Tums) Calcium Carbonate 500 mg = 200 mg elemental calcium Dose = mg calcium carbonate ( mg elemental calcium) [facility] Saline Flush 0.9% 2019-01-07 02:00:00 No Notes: (Same as: BD Posiflush) [facility] Pravastatin 2019-01-07 02:00:00 No Notes: ( Same as: Pravachol) [facility] ceFAZolin (SCIP) 2019-01-07 01:00:00 No Not es: (Same as Ancef) [facility] tramadol hydrochloride 50 MG Oral Tablet 2019-01-07 00:45:00 No Notes: Not to exceed 400mg/day. (Same As: Ultram) [facility] Dilantin 2019-01-06 23:28:00 No 300 mg, 3 cap, Route: PO, Drug form: ERCAP, QPM, Dosing Weight 84.091, kg, Priority: NOW, Start date: 01/06/19 18:28:00 CDT, Duration: 30 day, Stop date: 02/05/19 17:00:00 [employer], 0 [facility] Docusate 2019-01-06 22:00:00 No Notes: (Same as: Colace) (Do Not Crush) [facility] sennosides, MCC 2019-01-06 22:00:00 No Notes: (Same as: Senokot) [facility] Dilantin 2019-01-06 22:00:00 No Notes: (Same as: Dilantin) Do not open, crush, or chew. [facility] Cefazolin 2019-01-06 21:00:00 No Notes: (Sa me as Ancef) [facility] Insulin regular 2019-01-06 20:23:00 No 5 unit, Route: IV, ONCE, Dosing Weight 84.091, kg, Start date: 01/06/19 15:23:00 CDT, Stop date: 01/06/19 15:23:00 CDT [facility] sugammadex (ANES) 2019-01-06 20:15:00 No Route: IV, Drug form: SOLN, ONCE, Stop date: 01/06/19 15:15:00 CDT [facility] ondansetron (ANES) 2019-01-06 19:56:00 No Route: IV, Drug form: INJ, ONCE, Stop date: 01/06/19 14:56:00 CDT [facility] Hydralazine 2019-01-06 19:47:00 No 10 mg, Route: IVP, Q20Min, Dosing Weight 84.091, kg, PRN Elevated BP, Start date: 01/06/19 14:47:00 CDT, Duration: 2 doses or times, Stop date: Limited # of times [facility] Labetalol 2019-01-06 19:47:00 No 10 mg, Route: IVP, Q5Min, Dosing Weight 84.091, kg, PRN Elevated BP, Start date: 01/06/19 14:47:00 CDT, Duration: 5 doses or times, Stop date: Limited # of times [facility] Oxycodone Hydrochloride 5 MG Oral Tablet 2019-01-06 19:47:00 No 10 mg, Route: PO, Drug form: TAB, Q4H, Dosing Weight 84.091, kg, PRN Pain Score 7- 10, Start date: 01/06/19 14:47:00 CDT, Duration: 30 day, Stop date: 02/05/19 14:46:00 [facility] Oxycodone 2019-01-06 19:47:00 No 5 mg, Route: PO, Drug form: LIQ, Q4H, Dosing Weight 84.091, kg, PRN Pain Score 7-10, Start date: 01/06/19 14:47:00 CDT, Duration: 30 day, Stop date: 02/05/19 14:46:00 [facility] Hydromorphone 2019-01-06 19:47:00 No 0.5 mg, Route: IVP, Q5Min, Dosing Weight 84.091, kg, PRN Pain Score 7-10, Start date: 01/06/19 14:47:00 CDT, Duration: 4 doses or times, Stop date: Limited # of times [facility] Flumazenil 2019-01-06 19:47:00 No 0.2 mg, Route: IVP, PRN, Dosing Weight 84.091, kg, PRN Benzodiazepine Reversal, Initial dose, Start date: 01/06/19 14:47:00 CDT, Duration: 30 day, Stop date: 02/05/19 13:46:00 [facility] Naloxone 2019-01-06 19:47:00 No 0.4 mg, Route: IVP, Q2MIN, Dosing Weight 84.091, kg, PRN Narcotic Reversal, Start date: 01/06/19 14:47:00 CDT, Duration: 8 doses or times, Stop date: Limited # of times [facility] Ondansetron 2019-01-06 19:47:00 No 4 mg, Route: IVP, ONCE, Dosing Weight 84.091, kg, PRN Nausea & Vomiting, Start date: 01/06/19 14:47:00 CDT [facility] Sodium Chloride 0.9% IV 1,000 mL 2019-01-06 19:25:00 No 1,000 mL, Rate: 75 ml/hr, Infuse over: 13.3 hr, Route: IV, Dosing Weight 84.091 kg, Total Volume: 1,000, Start date: 01/06/19 14:25:00 CDT, Duration: 30 day, Stop date: 02/05/19 14:24:00 [employer], 2.08, m2, 0 [facility] Labetalol 2019-01-06 19:25:00 No 10 mg, 2 mL, Route: IVP, Drug form: INJ, Q15Min, Dosing Weight 84.091, kg, PRN Hypertension, Start date: 01/06/19 14:25:00 CDT, Duration: 30 day, Stop date: 02/05/19 13:24:00 [employer], 0 [facility] Hydralazine 2019-01-06 19:25:00 No Notes: (Same as: Apresoline) Push over 5 minutes [facility] Ondansetron 2019-01-06 19:25:00 No Notes: (Same as: Zofran) MEDICATION WASTE Product Size: 4 mg Product Wasted: ___ mg [facility] Acetaminophen 325 MG / Hydrocodone Bitartrate 10 MG Or al Tablet [Altha 10/325] 2019-01-06 19:25:00 No Note s: Do not exceed 4gm/day of acetaminophen. (Same as: Altha 325/10) [facility] Dilaudid 2019-01-06 19:25:00 No Notes: Same as Dilaudid [facility] Benadryl 2019-01-06 19:25:00 No Notes: (Zay e as: Benadryl) [facility] phenol 2019-01-06 19:25:00 No Notes: Chloraseptic [place] (Same as: Chloraseptic, Sore Throat [place]) WASTE: F/P - Black; E - Municipal Trash Bin [facility] Bisacodyl 2019-01-06 19:25:00 No Notes: (Same As: Dulcolax, Bisco-Lax) [facility] Robaxin 2019-01-06 19:25:00 No Notes: (Same as:Robaxin) [facility] Melatonin 3 MG Extended Release Tablet 2019-01-06 19:25:00 No Notes: (Same as: Melatonin) [facility] Tylenol 2019-01-06 19:25:00 No Notes: Do not exceed 4 gm/day. (Same as: Tylenol) [facility] Reglan 2019-01-06 19:25:00 No Notes: (Same as: Reglan) [facility] Dick Phenergan 2019-01-06 19:25:00 No Notes: Do not give IV push. (Same as: Phenergan) Shoshana Jennings Saline Flush 0.9% 2019-01-06 19:25:00 No Notes: (Same as: BD Posiflush) Shoshana Jennings sugammadex 2019-01-06 19:05:00 No Notes: (S birgit as: Bridion) Shoshana Jennings norepinephrine (ANES) 2019-01-06 18:55:00 No Route: IV, Drug form: INJ, ONCE, Stop date: 01/06/19 13:55:00 CDT Shoshana Jennings vasopressin (ANES) 2019-01-06 18:45:00 No Route: IV, Drug form: INJ, ONCE, Stop date: 01/06/19 13:45:00 CDT emoriflex Zacariasann norepinephrine (ANES) 10 microgram 2019-01-06 18:40:00 No Route: IV, Drug form: INJ, Start date: 01/06/19 13:40:00 CDT, Stop date: 01/06/19 14:40:00 CDT [facility] Dick phenylephrine (ANES) 2019-01-06 18:25:00 No Route: IV, Drug form: INJ, ONCE, Stop date: 01/06/19 13:25:00 CDT [facility] Dick lidocaine (ANES) 2019-01-06 17:49:00 No Route: IV, Drug form: INJ, ONCE, Stop date: 01/06/19 12:49:00 [facility] propofol (ANES) 2019-01-06 17:49:00 No Route: IV, Drug form: INJ, ONCE, Stop date: 01/06/19 12:49:00 [facility]T [facility] fentaNYL (ANES) 2019-01-06 17:49:00 No Route: IV, Drug form: INJ, ONCE, Stop date: 01/06/19 12:49:00 [facility]T [facility] rocuronium (ANES) 2019-01-06 17:44:00 No Route: IV, Drug form: INJ, ONCE, Stop date: 01/06/19 12:44:00 CDT [facility] [place] dexamethasone (ANES) 2019-01-06 17:44:00 No Route: IV, Drug form: INJ, ONCE, Stop date: 01/06/19 12:44:00 CDT [facility] ceFAZolin (ANES) 2019-01-06 17:38:00 No Route: IV, Drug form: INJ, ONCE, Stop date: 01/06/19 12:38:[address] [facility] fosphenytoin (ANES) 1000 mg 2019-01-06 17:38:00 No Route: IV, Drug form: INJ, Start date: 01/06/19 12:38:00 CDT, Stop date: 01/06/19 13:38:00 CDT [facility] SUFentanil (ANES) 50 microgram 2019-01-06 17:00:00 No Route: IV, Drug form: INJ, Start date: 01/06/19 12:00:00 CDT, Stop date: 01/06/19 13:00:00 CDT [facility] propofol (ANES) 10 mg 2019-01-06 16:59:00 No Route: IV, Drug form: INJ, Start date: 01/06/19 11:59:00 CDT, Stop date: 01/06/19 12:59:00 CDT [facility] Sodium Chloride 0.9% IV (ANES) 1000 mL 2019-01-06 16:24:00 No Route: IV, Total Volume: 1,000, Start date: 01/06/19 11:24:00 CDT, Stop date: 01/06/19 12:24:00 CDT [facility] Lactated Ringers Injection IV (ANES) 1000 mL 2019-01-06 16:24:00 No Route: IV, Total Volume: 1,000, Start date: 01/06/19 11:24:00 CDT, Stop date: 01/06/19 12:24:00 CDT [facility] ceFAZolin 2019-01-06 10:00:00 No Notes: (Sa me as Ancef) [facility] Pravastatin 2018-12-24 16:54:00 Yes 40 mg, P O, Bedtime [facility] Acetaminophen 325 MG / Hydrocodone Bitartrate 10 MG Or al Tablet [Altha 10/325] 2018-12-24 16:54:00 No 1 tab, PO, PRN, 0 Refill(s) [facility] Dick Naproxen 2018-12-24 16:54:00 No 500 mg, PO, PRN [facility] Flexeril 2018-12-24 16:54:00 Yes 10 mg, PO, PRN [facility] Omnipaque 300 2018-10-30 13:58:00 No 130 mL, Route: INTRAARTERIAL, Dosing Weight 81.818, kg, ONCE, Start date: 10/30/18 8:58:00 CDT, Stop date: 10/30/18 8:58:00 CDT [facility] Dick Fentanyl 2018-10-30 13:16:00 No 50 microgram, Route: IV, ONCE, Dosing Weight 81.818, kg, Start date: 10/30/18 8:16:00 CDT, Stop date: 10/30/18 8:16:00 CDT [facility] Dick Versed 2018-10-30 13:15:00 No 1 mg, Route: IV, ONCE, Dosing Weight 81.818, kg, Start date: 10/30/18 8:15:00 CDT, Stop date: 10/30/18 8:15:00 CDT [facility] ferrous sulfate 325 mg oral enteric coated tablet 2018-10-30 12:35:00 Yes 325 mg = 1 tab, PO, Daily, 0 Refill(s) [facility] Fish Oil 1000 mg oral capsule 2018-10-30 12:34:00 Yes 1,000 mg = 1 cap, PO, TID, 0 Refill(s) [facility] nn Aspirin 325 MG Oral Tablet 2018-10-30 12:33:00 Yes 325 mg = 1 tab, PO, Daily, 0 Refill(s) [facility] omeprazole 20 mg oral enteric coated tablet 2018-10-30 12:33:00 Yes 20 mg = 1 tab, PO, Daily, 0 Refill(s) Co angelica Jennings zolpidem 10 mg oral tablet 2018-10-30 12:33:00 Yes 10 mg = 1 tab, PO, Bedtime, 0 Refill(s) [facility] Addy n levothyroxine 75 mcg (0.075 mg) oral tablet 2018-10-30 12:32:00 Yes 75 microgram = 1 tab, PO, Daily, 0 Refill(s) Shoshana Jennings Metformin hydrochloride 500 MG Oral Tablet 2018-10-30 12:31:00 Yes 500 mg = 1 tab, PO, BID, 0 Refill(s) Kong Jennings atorvastatin 40 mg oral tablet 2018-10-30 12:31:00 Yes 40 mg = 1 tab, PO, Daily, 0 Refill(s) Shoshana perkins amLODIPine 10 mg oral tablet 2018-10-30 12:30:00 Yes 10 mg = 1 tab, PO, Daily, 0 Refill(s) Shoshana Jennings losartan 100 mg oral tablet 2018-10-30 12:29:00 Yes 100 mg = 1 tab, PO, Daily, 0 Refill(s) Shoshana Jennings Atenolol 100 MG Oral Tablet 2018-10-30 12:29:00 Yes 100 mg = 1 tab, PO, Daily, 0 Refill(s) Shosh[facility] [place] Clopidogrel Bisulfate (Plavix) 75 Mg Tablet, 75 Mg Or hardik Clopidogrel Bisulfate (Plavix) 75 Mg Tablet, 75 Mg Oral 2015-01-01 00:00:00 2015-05-27 00:00:00 No Petrona Ceron Enrollment Specialist 75 Daily [facility] Famotidine (Pepcid) 20 Mg Tablet, 20 Mg Oral Famotidin e (Pepcid) 20 Mg Tablet, 20 Mg Oral 2015-01-01 00:00:00 2015-05-27 00:00:00 No Petrona Ceron Enrollment Specialist 20 Twice A Day [facility] Amlodipine Besylate 10 Mg Tablet Amlodipine Besylate 10 Mg Tablet Yes 10 Daily [facility] Aspirin (Aspirin Chew) 81 Mg Chew Aspirin (Aspirin Chew) 81 Mg Chew Yes 81 Daily [facility] Atenolol 100 Mg Tablet Atenolol 100 Mg Tablet Yes 150 Daily [facility] Levothyroxine Sodium 75 Mcg Tablet Levothyroxine Sodium 75 Mcg Tablet Yes 75 Daily [facility] Losartan Potassium 50 Mg Tablet Losartan Potassium 50 Mg Tablet Yes 50 Twice A Day [facility] Metformin Hcl 500 Mg Tablet Metformin Hcl 500 Mg Tablet Yes 500 Twice A Day [facility] Pravastatin Sodium 40 Mg Tablet Pravastatin Sodium 40 Mg Tablet Yes 40 Daily [facility] Zolpidem Tartrate 10 Mg Tablet Zolpidem Tartrate 10 Mg Tablet Yes 10 Bedtime [facility] amlodipine 10 mg tablet Take 1 tablet every day by ora l route for 90 days. amlodipine 10 mg tablet Take 1 tablet every day by oral route for 90 days. No 1 Q1D amlodipine 10 m g tablet Take 1 tablet every day by oral route for 90 days. [facility] ice atenolol 100 mg tablet Take 1 tablet every day by oral route for 90 days. atenolol 100 mg tablet Take 1 tablet every day by oral route for 90 days. No 1 Q1D atenolol 100 mg tablet Take 1 tablet every day by oral route for 90 days. [facility] ice celecoxib 200 mg capsule Take 1 capsule every day by o ral route for 90 days. celecoxib 200 mg capsule Take 1 capsule every day by oral route for 90 days. No 1capsule(s) Q1D celecoxib 200 mg capsule Take 1 capsule every day by oral route for 90 days. [facility] ice cyclobenzaprine 10 mg tablet cyclobenzaprine 10 mg tablet N o cyclobenzaprine 10 mg tablet [facility] gabapentin 300 mg capsule Take 1 capsule 3 times a day by oral route at bedtime for 90 days. gabapentin 300 mg capsule Take 1 capsule 3 times a day by oral route at bedtime for 90 days. No 1capsule(s ) TID gabapentin 300 mg capsule Take 1 capsule 3 times a day by oral route at bedtime for 90 days. [facility] hydrocodone 10 mg-acetaminophen 325 mg tablet hydrocod one 10 mg-acetaminophen 325 mg tablet No hydrocodone 10 mg-acetam inophen 325 mg tablet [facility] levothyroxine 75 mcg tablet Take [address] oral rout e for 90 days. levothyroxine 75 mcg tablet Take 1 tablet by oral route for 90 days. No 1 levothyroxine 75 mcg tablet Take [address] oral [address] e for 90 days. [facility] losartan 100 mg tablet Take 1 tablet every day by oral route. losartan 100 mg tablet Take 1 tablet every day by oral route. No 1 Q1D losartan 100 mg tablet Take 1 tablet every day by oral route. [facility] meclizine 12.5 mg tablet meclizine 12.5 mg tablet No meclizine 12.5 mg tablet [facility] ice metformin 500 mg tablet metformin 500 mg tablet No metformin 500 mg tablet [facility] ice naproxen 500 mg tablet naproxen 500 mg tablet No naproxen 500 mg tablet [facility] ice omeprazole 20 mg capsule,delayed release Take 1 capsule by oral route for 90 days. omeprazole 20 mg capsule,delayed release Take 1 capsule by oral route for 90 days. No 1capsule(s) omeprazole 20 mg capsule,delayed release Take 1 capsule by oral route for 90 days. [facility] pravastatin 80 mg tablet Take 1 tablet every day by or al route for 90 days. pravastatin 80 mg tablet Take 1 tablet every day by oral route for 90 days. No 1 Q1D pravastatin 80 mg tablet Take 1 tablet every day by oral route for 90 days. [facility] ice zolpidem 10 mg tablet Take 1 tablet every day by oral route. zolpidem 10 mg tablet Take 1 tablet every day by oral route. No 1 Q1D zolpidem 10 mg tablet Take 1 tablet every day by oral route. [facility] methylprednisolone 4 mg tablets in a dose pack methylp rednisolone 4 mg tablets in a dose pack 2017-07-04 00:00:00 No methylprednisolone 4 mg tablets in a dose pack [facility] bupropion HCl XL 150 mg 24 hr tablet, extended release bupropion HCl XL 150 mg 24 hr tablet, extended release 2016-12-06 00:00:00 No bupropion HCl XL 150 mg 24 hr tablet, extended release [facility] dicyclomine 10 mg capsule Take 1 capsule 3 times a day by oral route for 30 days. dicyclomine 10 mg capsule Take 1 capsule 3 times a day by oral route for 30 days. 2016-12-06 00:00:00 No 1capsule(s) TID dicyclomine 10 mg capsule Take 1 capsule 3 times a day by oral route for 30 days. [facility] lidocaine 5 % topical ointment lidocaine 5 % topical ointment 2016-12-06 00:00:00 No lidocaine 5 % topical ointment [facility] Golytely 227.1 gram-21.5 gram-6.36 gram oral powder packet 4L PO in divided doses Golytely 227.1 gram-21.5 gram-6.36 gram oral powder packet 4L PO in divided doses 2016-07-18 00:00:00 No Golytely 227.1 gram-21.5 gram- 6.36 gram oral powder packet 4L PO in divided doses [facility] Golytely 236 gram-22.74 gram-6.74 gram-5 .86 gram oral solution 4L PO in divided doses Golytely 236 gram-22.74 gram-6.74 gram-5 .86 gram oral solution 4L PO in divided doses 2016-07-18 00:00:00 No Golytely 236 gram-22.74 gram-6.74 gram-5.86 gram oral solution 4L PO in divided doses [facility] levofloxacin 500 mg tablet levofloxacin 500 mg tablet 2016 00:00:00 No levofloxacin 500 mg tablet [facility] Depo-Medrol 80 mg/mL suspension for inje ction Inject 80 mg, deep IM, once as a single dose Depo-Medrol 80 mg/mL suspension for inje ction Inject 80 mg, deep IM, once as a single dose 2016-04-24 00:00:00 No Depo-Medrol 80 mg/mL suspension for injection Inject 80 mg, deep IM, once as a single dose [facility] Omeprazole 20 Mg Capsule., Omeprazole 20 Mg Capsule., 2015-01-01 00:00:00 [facility] Amiloride Hcl 5 Mg Tablet, Amiloride Hcl 5 Mg Tablet, 2014 00:00:00 [facility] Immunizations Ordered Immunization Name Filled Immunization Name Date Status Comments Source pneumococcal polysaccharide PPV23 pneumococcal polysaccharid e PPV23 2017-02-05 16:19:31 Completed [facility] ice influenza, high dose seasonal influenza, high dose seasonal 2016 16:19:00 Completed [facility] influenza, seasonal, injectable influenza, seasonal, injecta ble 2014-12-15 00:00:00 Completed [facility] ice influenza, seasonal, injectable influenza, seasonal, injecta ble 2014-01-07 00:00:00 Completed [facility] pneumococcal, unspecified formulation pneumococcal, unspecif ied formulation 2012-04-02 00:00:00 Completed [facility] Tdap Tdap 2007-04-02 00:00:00 Completed [facility] Vital Signs Vital Name Observation Time Observation Value Comments Source Temperature Oral (F) 2019-01-10 18:38:00 97.6 F [facility] Heart Rate 2019-01-10 18:38:00 [facility] Respitory Rate 2019-01-10 18:38:00 [facility] Systolic (mm Hg) 2019-01-10 18:38:00 [facility] Diastolic (mm Hg) 2019-01-10 18:38:00 [facility] Temperature Oral (F) 2019-01-10 12:29:00 97.6 F [facility] Heart Rate 2019-01-10 12:29:00 [facility] Respitory Rate 2019-01-10 12:29:00 [facility] Systolic (mm Hg) 2019-01-10 12:29:00 [facility] [place] Diastolic (mm Hg) 2019-01-10 12:29:00 [facility] [place] Temperature Oral (F) 2019-01-10 09:23:00 97.6 F [facility] Heart Rate 2019-01-10 09:23:00 [facility] Respitory Rate 2019-01-10 09:23:00 [facility] Systolic (mm Hg) 2019-01-10 09:23:00 [facility] [place] Diastolic (mm Hg) 2019-01-10 09:23:00 [facility] [place] Height 2019-01-06 22:54:00 182.88 cm [facility] Weight 2019-01-06 22:54:00 [facility] BMI Calculated 2019-01-06 22:54:00 [facility] Height 2019-01-06 15:17:00 182.88 cm [facility] Weight 2019-01-06 15:17:00 [facility] BMI Calculated 2019-01-06 15:17:00 [facility] Height 2018-12-23 17:09:00 182.88 cm [facility] Weight 2018-12-23 17:09:00 [facility] BMI Calculated 2018-12-23 17:09:00 [facility] Respitory Rate 2018-10-30 16:45:00 [facility] Systolic (mm Hg) 2018-10-30 16:45:00 [facility] Diastolic (mm Hg) 2018-10-30 16:45:00 [facility] [place] Respitory Rate 2018-10-30 16:15:00 [facility] Systolic (mm Hg) 2018-10-30 16:15:00 [facility] Diastolic (mm Hg) 2018-10-30 16:15:00 [facility] Weight 2018-10-30 11:39:00 [facility] BMI Calculated 2018-10-30 11:39:00 [facility] Height 2018-10-30 11:39:00 182.88 cm [facility] Height 2018-10-11 18:48:00 182.88 cm [facility] Weight 2018-10-11 18:48:00 [facility] BMI Calculated 2018-10-11 18:48:00 [facility] Systolic (mm Hg) 2018-10-11 18:48:00 [facility] Diastolic (mm Hg) 2018-10-11 18:48:00 [facility] [place] Heart Rate 2018-10-11 18:48:00 [facility] BP Diastolic 2017-07-04 00:00:00 72 mm[Hg] [facility] Height 2017-07-04 00:00:00 70 [in_i] [facility] BMI (Body Mass Index) 2017-07-04 00:00:00 26.1 kg/m2 [facility] BP Systolic 2017-07-04 00:00:00 138 mm[Hg] [facility] Body Weight 2017-07-04 00:00:00 182 [lb_av] [facility] BP Diastolic 2017-04-09 00:00:00 75 mm[Hg] [facility] Height 2017-04-09 00:00:00 70 [in_i] [facility] BMI (Body Mass Index) 2017-04-09 00:00:00 26.3 kg/m2 [facility] BP Systolic 2017-04-09 00:00:00 130 mm[Hg] [facility] Body Weight 2017-04-09 00:00:00 183.6 [lb_av] [facility] BP Diastolic 2017-02-05 00:00:00 80 mm[Hg] [facility] Height 2017-02-05 00:00:00 70 [in_i] [facility] BMI (Body Mass Index) 2017-02-05 00:00:00 26.3 kg/m2 [facility] BP Systolic 2017-02-05 00:00:00 129 mm[Hg] [facility] Body Weight 2017-02-05 00:00:00 183 [lb_av] [facility] BP Diastolic 2016-12-25 00:00:00 72 mm[Hg] [facility] Height 2016-12-25 00:00:00 70 [in_i] [facility] BMI (Body Mass Index) 2016-12-25 00:00:00 26.1 kg/m2 [facility] BP Systolic 2016-12-25 00:00:00 126 mm[Hg] [facility] Body Weight 2016-12-25 00:00:00 181.8 [lb_av] [facility] BP Diastolic 2016-12-06 00:00:00 71 mm[Hg] [facility] Height 2016-12-06 00:00:00 70 [in_i] [facility] BMI (Body Mass Index) 2016-12-06 00:00:00 26.1 kg/m2 [facility] BP Systolic 2016-12-06 00:00:00 122 mm[Hg] [facility] Body Weight 2016-12-06 00:00:00 181.8 [lb_av] [facility] BP Diastolic 2016-10-25 00:00:00 80 mm[Hg] [facility] Height 2016-10-25 00:00:00 70 [in_i] [facility] BMI (Body Mass Index) 2016-10-25 00:00:00 25.8 kg/m2 [facility] BP Systolic 2016-10-25 00:00:00 127 mm[Hg] [facility] Body Weight 2016-10-25 00:00:00 180 [lb_av] [facility] BP Diastolic 2016-09-25 00:00:00 85 mm[Hg] [facility] Height 2016-09-25 00:00:00 70 [in_i] [facility] BMI (Body Mass Index) 2016-09-25 00:00:00 26.3 kg/m2 [facility] BP Systolic 2016-09-25 00:00:00 133 mm[Hg] [facility] Body Weight 2016-09-25 00:00:00 183 [lb_av] [facility] BP Diastolic 2016-08-17 00:00:00 77 mm[Hg] [facility] Height 2016-08-17 00:00:00 70 [in_i] [facility] BMI (Body Mass Index) 2016-08-17 00:00:00 26.3 kg/m2 [facility] BP Systolic 2016-08-17 00:00:00 130 mm[Hg] [facility] Body Weight 2016-08-17 00:00:00 183.4 [lb_av] [facility] BP Diastolic 2016-07-18 00:00:00 87 mm[Hg] [facility] Height 2016-07-18 00:00:00 70 [in_i] [facility] BMI (Body Mass Index) 2016-07-18 00:00:00 26.1 kg/m2 [facility] BP Systolic 2016-07-18 00:00:00 145 mm[Hg] [facility] Body Weight 2016-07-18 00:00:00 182.2 [lb_av] [facility] BP Diastolic 2016-06-27 00:00:00 75 mm[Hg] [facility] Height 2016-06-27 00:00:00 70 [in_i] [facility] BMI (Body Mass Index) 2016-06-27 00:00:00 26.1 kg/m2 [facility] BP Systolic 2016-06-27 00:00:00 121 mm[Hg] [facility] Body Weight 2016-06-27 00:00:00 181.6 [lb_av] [facility] BP Diastolic 2016-06-21 00:00:00 83 mm[Hg] [facility] Height 2016-06-21 00:00:00 70 [in_i] [facility] BMI (Body Mass Index) 2016-06-21 00:00:00 25.8 kg/m2 [facility] BP Systolic 2016-06-21 00:00:00 147 mm[Hg] [facility] Body Weight 2016-06-21 00:00:00 180 [lb_av] [facility] BP Diastolic 2016-05-23 00:00:00 82 mm[Hg] [facility] Height 2016-05-23 00:00:00 70 [in_i] [facility] BMI (Body Mass Index) 2016-05-23 00:00:00 26.2 kg/m2 [facility] BP Systolic 2016-05-23 00:00:00 135 mm[Hg] [facility] Body Weight 2016-05-23 00:00:00 182.6 [lb_av] [facility] BP Diastolic 2016-04-24 00:00:00 80 mm[Hg] [facility] Height 2016-04-24 00:00:00 70 [in_i] [facility] BMI (Body Mass Index) 2016-04-24 00:00:00 26.3 kg/m2 [facility] BP Systolic 2016-04-24 00:00:00 134 mm[Hg] [facility] Body Weight 2016-04-24 00:00:00 183 [lb_av] [facility] BP Diastolic 2016-03-21 00:00:00 82 mm[Hg] [facility] Height 2016-03-21 00:00:00 70 [in_i] [facility] BMI (Body Mass Index) 2016-03-21 00:00:00 26.4 kg/m2 [facility] BP Systolic 2016-03-21 00:00:00 139 mm[Hg] [facility] Body Weight 2016-03-21 00:00:00 184 [lb_av] [facility] BP Diastolic 2016-02-21 00:00:00 80 mm[Hg] [facility] Height 2016-02-21 00:00:00 70 [in_i] [facility] BMI (Body Mass Index) 2016-02-21 00:00:00 26.1 kg/m2 [facility] BP Systolic 2016-02-21 00:00:00 140 mm[Hg] [facility] Body Weight 2016-02-21 00:00:00 182.2 [lb_av] [facility] BP Diastolic 2016-01-05 00:00:00 82 mm[Hg] [facility] Height 2016-01-05 00:00:00 70 [in_i] [facility] BMI (Body Mass Index) 2016-01-05 00:00:00 26.3 kg/m2 [facility] BP Systolic 2016-01-05 00:00:00 162 mm[Hg] [facility] Body Weight 2016-01-05 00:00:00 183.2 [lb_av] [facility] BP Diastolic 2015-09-16 00:00:00 76 mm[Hg] [facility] Height 2015-09-16 00:00:00 70 [in_i] [facility] BMI (Body Mass Index) 2015-09-16 00:00:00 25.74 kg/m2 [facility] BP Systolic 2015-09-16 00:00:00 146 mm[Hg] [facility] Body Weight 2015-09-16 00:00:00 179.4 [lb_av] [facility] BP Diastolic 2015-08-10 00:00:00 84 mm[Hg] [facility] Height 2015-08-10 00:00:00 70 [in_i] [facility] BMI (Body Mass Index) 2015-08-10 00:00:00 25.71 kg/m2 [facility] BP Systolic 2015-08-10 00:00:00 163 mm[Hg] [facility] Body Weight 2015-08-10 00:00:00 179.2 [lb_av] [facility] BP Diastolic 2015-07-22 00:00:00 77 mm[Hg] [facility] Height 2015-07-22 00:00:00 70 [in_i] [facility] BMI (Body Mass Index) 2015-07-22 00:00:00 25.82 kg/m2 [facility] BP Systolic 2015-07-22 00:00:00 149 mm[Hg] [facility] Body Weight 2015-07-22 00:00:00 180 [lb_av] [facility] BP Diastolic 2015-06-07 00:00:00 60 mm[Hg] [facility] Height 2015-06-07 00:00:00 70 [in_i] [facility] BMI (Body Mass Index) 2015-06-07 00:00:00 25.48 kg/m2 [facility] BP Systolic 2015-06-07 00:00:00 122 mm[Hg] [facility] Body Weight 2015-06-07 00:00:00 177.6 [lb_av] [facility] BP Diastolic 2015-05-13 00:00:00 80 mm[Hg] [facility] Height 2015-05-13 00:00:00 70 [in_i] [facility] BP Systolic 2015-05-13 00:00:00 110 mm[Hg] [facility] Body Weight 2015-05-13 00:00:00 178 [lb_av] [facility] BMI (Body Mass Index) 2015-05-13 00:00:00 25.54 kg/m2 [facility] BP Diastolic 2015-03-16 00:00:00 76 mm[Hg] [facility] Height 2015-03-16 00:00:00 70 [in_i] [facility] BMI (Body Mass Index) 2015-03-16 00:00:00 26.17 kg/m2 [facility] BP Systolic 2015-03-16 00:00:00 140 mm[Hg] [facility] Body Weight 2015-03-16 00:00:00 182.4 [lb_av] [facility] BP Diastolic 2015-02-08 00:00:00 68 mm[Hg] [facility] Height 2015-02-08 00:00:00 70 [in_i] [facility] BMI (Body Mass Index) 2015-02-08 00:00:00 26.31 kg/m2 [facility] BP Systolic 2015-02-08 00:00:00 130 mm[Hg] [facility] Body Weight 2015-02-08 00:00:00 183.4 [lb_av] [facility] BP Diastolic 2015-01-06 00:00:00 72 mm[Hg] [facility] Height 2015-01-06 00:00:00 70 [in_i] [facility] BMI (Body Mass Index) 2015-01-06 00:00:00 26.37 kg/m2 [facility] BP Systolic 2015-01-06 00:00:00 140 mm[Hg] [facility] Body Weight 2015-01-06 00:00:00 183.8 [lb_av] [facility] BP Diastolic 2014-12-15 00:00:00 71 mm[Hg] [facility] Height 2014-12-15 00:00:00 70 [in_i] [facility] BMI (Body Mass Index) 2014-12-15 00:00:00 25.94 kg/m2 [facility] BP Systolic 2014-12-15 00:00:00 132 mm[Hg] [facility] Body Weight 2014-12-15 00:00:00 180.8 [lb_av] [facility] BP Diastolic 2014-11-10 00:00:00 70 mm[Hg] [facility] Height 2014-11-10 00:00:00 70 [in_i] [facility] BMI (Body Mass Index) 2014-11-10 00:00:00 26.97 kg/m2 [facility] BP Systolic 2014-11-10 00:00:00 150 mm[Hg] [facility] Body Weight 2014-11-10 00:00:00 188 [lb_av] [facility] BP Diastolic 2014-11-02 00:00:00 74 mm[Hg] [facility] Height 2014-11-02 00:00:00 70 [in_i] [facility] BMI (Body Mass Index) 2014-11-02 00:00:00 26.89 kg/m2 [facility] BP Systolic 2014-11-02 00:00:00 122 mm[Hg] [facility] Body Weight 2014-11-02 00:00:00 187.4 [lb_av] [facility] BP Diastolic 2014-09-28 00:00:00 72 mm[Hg] [facility] Height 2014-09-28 00:00:00 70 [in_i] [facility] BMI (Body Mass Index) 2014-09-28 00:00:00 26.86 kg/m2 [facility] BP Systolic 2014-09-28 00:00:00 126 mm[Hg] [facility] Body Weight 2014-09-28 00:00:00 187.2 [lb_av] [facility] BP Diastolic 2014-09-21 00:00:00 76 mm[Hg] [facility] Height 2014-09-21 00:00:00 70 [in_i] [facility] BMI (Body Mass Index) 2014-09-21 00:00:00 26.77 kg/m2 [facility] BP Systolic 2014-09-21 00:00:00 140 mm[Hg] [facility] Body Weight 2014-09-21 00:00:00 186.6 [lb_av] [facility] BP Diastolic 2014-09-04 00:00:00 76 mm[Hg] [facility] Height 2014-09-04 00:00:00 70 [in_i] [facility] BMI (Body Mass Index) 2014-09-04 00:00:00 26.03 kg/m2 [facility] BP Systolic 2014-09-04 00:00:00 132 mm[Hg] [facility] Body Weight 2014-09-04 00:00:00 181.4 [lb_av] [facility] BP Diastolic 2014-08-03 00:00:00 70 mm[Hg] [facility] Height 2014-08-03 00:00:00 70 [in_i] [facility] BMI (Body Mass Index) 2014-08-03 00:00:00 26.48 kg/m2 [facility] BP Systolic 2014-08-03 00:00:00 134 mm[Hg] [facility] Body Weight 2014-08-03 00:00:00 184.6 [lb_av] [facility] BP Diastolic 2014-07-10 00:00:00 71 mm[Hg] [facility] Height 2014-07-10 00:00:00 70 [in_i] [facility] BMI (Body Mass Index) 2014-07-10 00:00:00 26.31 kg/m2 [facility] BP Systolic 2014-07-10 00:00:00 120 mm[Hg] [facility] Body Weight 2014-07-10 00:00:00 183.4 [lb_av] [facility] BP Diastolic 2014-06-08 00:00:00 60 mm[Hg] [facility] Height 2014-06-08 00:00:00 70 [in_i] [facility] BMI (Body Mass Index) 2014-06-08 00:00:00 26.80 kg/m2 [facility] BP Systolic 2014-06-08 00:00:00 120 mm[Hg] [facility] Body Weight 2014-06-08 00:00:00 186.8 [lb_av] [facility] BP Diastolic 2014-05-12 00:00:00 70 mm[Hg] [facility] Height 2014-05-12 00:00:00 70 [in_i] [facility] BMI (Body Mass Index) 2014-05-12 00:00:00 26.69 kg/m2 [facility] BP Systolic 2014-05-12 00:00:00 120 mm[Hg] [facility] Body Weight 2014-05-12 00:00:00 186 [lb_av] [facility] Height 2014-04-14 00:00:00 70 [in_i] [facility] BMI (Body Mass Index) 2014-04-14 00:00:00 26.28 kg/m2 [facility] BP Diastolic 2014-04-14 00:00:00 70 mm[Hg] [facility] BP Systolic 2014-04-14 00:00:00 120 mm[Hg] [facility] Body Weight 2014-04-14 00:00:00 183.2 [lb_av] [facility] BP Diastolic 2014-03-30 00:00:00 70 mm[Hg] [facility] Height 2014-03-30 00:00:00 70 [in_i] [facility] BMI (Body Mass Index) 2014-03-30 00:00:00 26.37 kg/m2 [facility] BP Systolic 2014-03-30 00:00:00 122 mm[Hg] [facility] Body Weight 2014-03-30 00:00:00 183.8 [lb_av] [facility] BP Diastolic 2014-03-11 00:00:00 70 mm[Hg] [facility] Height 2014-03-11 00:00:00 70 [in_i] [facility] BMI (Body Mass Index) 2014-03-11 00:00:00 26.63 kg/m2 [facility] BP Systolic 2014-03-11 00:00:00 130 mm[Hg] [facility] Body Weight 2014-03-11 00:00:00 185.6 [lb_av] [facility] BP Diastolic 2014-02-24 00:00:00 80 mm[Hg] [facility] Height 2014-02-24 00:00:00 70 [in_i] [facility] BMI (Body Mass Index) 2014-02-24 00:00:00 26.31 kg/m2 [facility] BP Systolic 2014-02-24 00:00:00 140 mm[Hg] [facility] Body Weight 2014-02-24 00:00:00 183.4 [lb_av] [facility] BP Diastolic 2014-02-03 00:00:00 70 mm[Hg] [facility] Height 2014-02-03 00:00:00 70 [in_i] [facility] BMI (Body Mass Index) 2014-02-03 00:00:00 26.48 kg/m2 [facility] BP Systolic 2014-02-03 00:00:00 130 mm[Hg] [facility] Body Weight 2014-02-03 00:00:00 184.6 [lb_av] [facility] Height 2014-01-07 00:00:00 70 [in_i] [facility] BMI (Body Mass Index) 2014-01-07 00:00:00 26.69 kg/m2 [facility] BP Diastolic 2014-01-07 00:00:00 80 mm[Hg] [facility] BP Systolic 2014-01-07 00:00:00 130 mm[Hg] [facility] Body Weight 2014-01-07 00:00:00 186 [lb_av] [facility] BP Diastolic 2014-01-06 00:00:00 80 mm[Hg] [facility] Height 2014-01-06 00:00:00 70 [in_i] [facility] BMI (Body Mass Index) 2014-01-06 00:00:00 26.69 kg/m2 [facility] BP Systolic 2014-01-06 00:00:00 130 mm[Hg] [facility] Body Weight 2014-01-06 00:00:00 186 [lb_av] [facility] Height 2013-11-26 00:00:00 70 [in_i] [facility] Body Weight 2013-11-26 00:00:00 185 [lb_av] [facility] Height 2013-11-05 00:00:00 70 [in_i] [facility] Body Weight 2013-11-05 00:00:00 189.6 [lb_av] [facility] Height 2013-09-10 00:00:00 70 [in_i] [facility] Body Weight 2013-09-10 00:00:00 188.8 [lb_av] [facility] Height 2013-06-16 00:00:00 70 [in_i] [facility] Body Weight 2013-06-16 00:00:00 197.6 [lb_av] [facility] Height 2013-04-21 00:00:00 70 [in_i] [facility] Body Weight 2013-04-21 00:00:00 195.6 [lb_av] [facility] Height 2013-04-04 00:00:00 70 [in_i] [facility] Body Weight 2013-04-04 00:00:00 196.2 [lb_av] [facility] Height 2013-03-17 00:00:00 70 [in_i] [facility] Body Weight 2013-03-17 00:00:00 198.9 [lb_av] [facility] Height 2013-01-02 00:00:00 70 [in_i] [facility] Body Weight 2013-01-02 00:00:00 199.2 [lb_av] [facility] Height 2012-12-11 00:00:00 70 [in_i] [facility] Body Weight 2012-12-11 00:00:00 200.8 [lb_av] [facility] Height 2012-11-28 00:00:00 70 [in_i] [facility] Body Weight 2012-11-28 00:00:00 201.8 [lb_av] [facility] Height 2012-07-10 00:00:00 70 [in_i] [facility] Body Weight 2012-07-10 00:00:00 191 [lb_av] [facility] Height 2012-05-27 00:00:00 70 [in_i] [facility] Body Weight 2012-05-27 00:00:00 189.4 [lb_av] [facility] Height 2011-12-12 00:00:00 70 [in_i] [facility] Body Weight 2011-12-12 00:00:00 197.2 [lb_av] [facility] Height 2011-11-13 00:00:00 70 [in_i] [facility] Body Weight 2011-11-13 00:00:00 201.6 [lb_av] [facility] Height 2011-09-29 00:00:00 70 [in_i] [facility] Body Weight 2011-09-29 00:00:00 201 [lb_av] [facility] Height 2011-08-31 00:00:00 70 [in_i] [facility] Body Weight 2011-08-31 00:00:00 176 [lb_av] [facility] Height 2011-08-09 00:00:00 70 [in_i] [facility] Body Weight 2011-08-09 00:00:00 201.6 [lb_av] [facility] Height 2011-06-21 00:00:00 70 [in_i] [facility] Body Weight 2011-06-21 00:00:00 203.2 [lb_av] [facility] Height 2011-05-26 00:00:00 70 [in_i] [facility] Body Weight 2011-05-26 00:00:00 204.6 [lb_av] [facility] Height 2011-04-14 00:00:00 70 [in_i] [facility] Body Weight 2011-04-14 00:00:00 199.8 [lb_av] [facility] Height 2011-02-06 00:00:00 70 [in_i] [facility] Body Weight 2011-02-06 00:00:00 199.2 [lb_av] [facility] Height 2010-12-19 00:00:00 70 [in_i] [facility] Body Weight 2010-12-19 00:00:00 197.6 [lb_av] [facility] Height 2010-10-05 00:00:00 70 [in_i] [facility] Body Weight 2010-10-05 00:00:00 197.6 [lb_av] [facility] Height 2010-07-11 00:00:00 70 [in_i] [facility] Body Weight 2010-07-11 00:00:00 199 [lb_av] [facility] Body Weight 2010-07-05 00:00:00 199 [lb_av] [facility] Height 2010-07-05 00:00:00 70 [in_i] [facility] Height 2010-03-18 00:00:00 70 [in_i] [facility] Body Weight 2010-03-18 00:00:00 202.6 [lb_av] [facility] Height 2010-03-11 00:00:00 70 [in_i] [facility] Body Weight 2010-03-11 00:00:00 204.4 [lb_av] [facility] Height 2010-03-07 00:00:00 70 [in_i] [facility] Body Weight 2010-03-07 00:00:00 204.6 [lb_av] [facility] Height 2009-12-23 00:00:00 70 [in_i] [facility] Body Weight 2009-12-23 00:00:00 204.2 [lb_av] [facility] Body Weight 2009-11-11 00:00:00 202 [lb_av] [facility] Body Weight 2009-10-27 00:00:00 202.6 [lb_av] [facility] Body Weight 2009-08-23 00:00:00 202 [lb_av] [facility] Body Weight 2009-08-05 00:00:00 202.6 [lb_av] [facility] Body Weight 2009-06-23 00:00:00 200 [lb_av] [facility] Body Weight 2009-06-16 00:00:00 199 [lb_av] [facility] Height 2009-06-09 00:00:00 70 [in_i] [facility] Body Weight 2009-06-09 00:00:00 196 [lb_av] [facility] Body Weight 2009-02-03 00:00:00 196 [lb_av] [facility] Body Weight 2009-01-01 00:00:00 196 [lb_av] [facility] Body Weight 2007-12-30 00:00:00 199 [lb_av] [facility] Body Weight 2007-07-01 00:00:00 195.3 [lb_av] [facility] Body Weight 2007-03-14 00:00:00 194.9 [lb_av] [facility] Height 2007-03-04 00:00:00 72 [in_i] [facility] Body Weight 2007-03-04 00:00:00 201.1 [lb_av] [facility] Body Weight 2006-10-29 00:00:00 200.2 [lb_av] [facility] Body Weight 2006-05-31 00:00:00 205.1 [lb_av] [facility] Height 2005-07-03 00:00:00 72 [in_i] [facility] Body Weight 2005-07-03 00:00:00 202 [lb_av] [facility] Height 2005-01-11 00:00:00 72 [in_i] [facility] Body Weight 2005-01-11 00:00:00 200 [lb_av] [facility] Height 2004-11-18 00:00:00 72 [in_i] [facility] Body Weight 2004-11-18 00:00:00 202 [lb_av] [facility] Height 2004-06-02 00:00:00 72 [in_i] [facility] Body Weight 2004-06-02 00:00:00 204 [lb_av] [facility] Procedures Procedure Date / Time Performed Performing Clinician Sour e Computed tomography angiography of brain 2018-09-20 00:00:00 PIERCE JOHNSON [facility] MRI, lumbar spine, w/o contrast 2016-04-24 00:00:00 [facility] Knee Surgery [facility] Angioplasty [facility] Low Back Disk Surgery [facility] Tonsillectomy [facility] Hernia Repair [facility] Knee replacement Shoshana morton Laparoscopic repair of left inguinal hernia using surgical mesh [facility] - Percutaneous coronary intervention<sup>1</sup> [facility] Procedure on back Shoshana Zacariasa nn Stent placement<sup>2</sup> Gigi rial Dick Tonsillectomy [facility] Plan of Care Planned Activity Planned Date Details Comments Source Instructions [facility] Instructions [facility] Instructions [facility] Instructions [facility] Encounters Start Date/Time End Date/Time Encounter Type Admission Type [facility] Care Department Encounter ID Source 2019-01-06 07:54:00 [facility]patient [id number] [facility] 2019-01-06 07:54:00 2019-01-10 14:15:00 Outpatient Mazin Peters [facility] [id number] 2018-11-27 11:03:41 2018-11-28 23:59:59 Outpatient [facility] [id number] 2018-11-21 13:57:00 2018-11-21 23:59:00 Out[address] Honorio Funk [facility] [id number] 2018-11-18 09:42:08 2018-11-19 23:59:59 Outpatient [facility] [id number] 2018-11-15 09:47:03 2018-11-16 23:59:59 Outpatient [facility] [id number] 2018-11-08 13:00:00 2018-11-08 23:59:59 Outpatient Tyler Peters [facility] [id number] 2018-11-01 09:11:05 2018-11-02 23:59:59 Outpatient [facility] [id number] 2018-10-30 06:18:00 2018-10-30 11:45:00 Outpatient Mazin Peters [facility] [id number] 2018-10-30 06:18:00 2018-10-30 06:18:00 [facility]patient [facility] [id number] [facility] 2018-10-28 09:25:37 2018-10-29 23:59:59 Outpatient [facility] T[facility] [id number] 2018-10-17 15:23:00 2018-10-17 23:59:00 Outpatient Palvadi, Susan [facility] M[facility] [id number] 2018-10-11 08:00:00 2018-10-11 23:59:59 Outpatient Tyler Peters [facility] [id number] 2018-10-04 13:57:00 2018-10-04 23:59:00 Outpatient Susan Healy [facility] M[facility] [id number] 2018-10-01 14:14:30 2018-10-02 23:59:59 Outpatient WILBER MELGAR [facility] [id number] 2018-09-20 18:42:00 2018-09-21 00:10:00 Departed Emergency Room 1 KRYSTA HOFFMAN [facility] [id number] [facility] 2017-07-04 00:00:00 2017-07-04 00:00:00 Nilo Chairez MD: [id number] [facility], [facility] [address] [address], Ph. [facility] [id number] [facility] 2017-05-21 00:00:00 2017-05-21 00:00:00 Cassaine Estrada: 9055 [facility], [address] [address], Ph. [facility] Practice - Care Management [id number] [facility] 2017-04-09 00:00:00 2017-04-09 00:00:00 Nilo Chairez MD: [id number] [facility], [address] [address], Ph. [facility] [id number] [facility] 2017-02-27 00:00:00 2017-02-27 00:00:00 Cassaine Estrada: 9055 [facility], [address] [address], Ph. [facility] Practice - Care Management [id number] [facility] 2017-02-05 00:00:00 2017-02-05 00:00:00 Nilo Chairez MD: [id number], [address] [address], Ph. [facility] [id number] [facility] amparo 2017-01-02 00:00:00 2017-01-02 00:00:00 Cassaine Estrada: [address], [address], [place] [address], Ph. [facility] Family Practice - Care Management [id number] [facility] 2016-12-26 00:00:00 2016-12-26 00:00:00 Cassaine Estrada: [address], [address], [place] [address], Ph. [facility] Practice - Care Management [id number] [facility] 2016-12-25 00:00:00 2016-12-25 00:00:00 Nilo Chairez MD: [id number] [employer] [address], [address] [address], Ph. [facility] Practice [facility] [id number] [facility] Pr[facility] 2016-12-06 00:00:00 2016-12-06 00:00:00 Nilo Chairez MD: [id number] [employer], [address] [place] [address], Ph. [facility] [id number] [facility] Prac [facility] 2016-10-25 00:00:00 2016-10-25 00:00:00 Nilo Chairez MD: [id number] [employer] [address], [address] [address], Ph. [facility] Practice [facility] [id number] [facility] Pr[facility] amparo 2016-10-09 00:00:00 2016-10-09 00:00:00 Cassaine Estrada: [address], [address], [place] [address], Ph. [facility] Family Practice - Care Management [id number] [facility] 2016-09-25 00:00:00 2016-09-25 00:00:00 Nilo Chairez MD: [address], [address], [place] [address], Ph. [facility] [id number] [facility] Pr[facility] am[facility]o 2016-09-01 00:00:00 2016-09-01 00:00:00 Cassaine Estrada: [address], [address], [place] [address], Ph. [facility] Practice - Care Management [id number] [facility] 2016-08-17 00:00:00 2016-08-17 00:00:00 Nilo Chairez MD: [address], [address], [place] [address], Ph. [facility] [id number] [facility] 2016-08-14 00:00:00 2016-08-14 00:00:00 Cassaine Estrada: [address], [address], [place] [address], Ph. [facility] Practice - Care Management [id number] [facility] 2016-07-31 00:00:00 2016-07-31 00:00:00 Danna Chairez: [address], [address], [place] [address], Ph. [facility] Practice - Care Management [id number] [facility] Pract ice 2016-07-18 00:00:00 2016-07-18 00:00:00 Nilo Chairez MD: [address], [address], [place] [address], Ph. [facility] [id number] [facility] amparo 2016-07-13 00:00:00 2016-07-13 00:00:00 Cassaine Estrada: [address], [address], [place] [address], Ph. [facility] Family Practice - Care Management [id number] [facility] 2016-06-27 00:00:00 2016-06-27 00:00:00 Nilo Chairez MD: [address] [facility], [address] [address], Ph. [facility] Practice [facility] [id number] [facility] 2016-06-21 00:00:00 2016-06-21 00:00:00 Nilo Chairez MD: [address] [facility], [address] [address], Ph. [facility] Practice - [facility] [id number] [facility] 2016-06-06 00:00:00 2016-06-06 00:00:00 Cassaine Estrada: [address] [facility], [address] [address], Ph. [facility] Practice - Care Management [id number] [facility] 2016-05-23 00:00:00 2016-05-23 00:00:00 Nilo Chairez MD: [id number], [address] [address], Ph. [facility] [id number] [facility] 2016-05-10 00:00:00 2016-05-10 00:00:00 Cassaine Estrada: [address] [facility], [address] [address], Ph. [facility] Family Practice - Care Management [id number] [facility] 2016-04-25 00:00:00 2016-04-25 00:00:00 Cassaine Estrada: [address] [facility], [address] [address], Ph. [facility] Family Practice - Care Management [id number] [facility] Practice 2016-04-24 00:00:00 2016-04-24 00:00:00 Nilo Chairez MD: [id number], [address] [address], Ph. [facility] [id number] [facility] Family Prac amparo 2016-03-21 00:00:00 2016-03-21 00:00:00 Nilo Chairez MD: 72019 [facility] [address] [address], Ph. [facility] [id number] [facility] 2016-02-21 00:00:00 2016-02-21 00:00:00 Nilo Chairez MD: 08255 [facility] [address] [address], Ph. [facility] [id number] [facility] 2016-01-05 00:00:00 2016-01-05 00:00:00 Nilo Chairez MD: [id number] [facility] [address] [address], Ph. [facility] [id number] [facility] amparo Results Test Description Test Time Test Comments Results Result Comments Source CARDIAC ENZYMES 2019-01-09 14:37:00 0.03 [facility] CHEM PANEL 2019-01-09 05:31:00 2.0 [facility]M PANEL 2019-01-09 05:31:00 1.9 [facility] CHEM PANEL 2019-01-09 05:31:00 180 [facility] CHEM PANEL 2019-01-09 05:31:00 32 [facility] [place] CHEM PANEL 2019-01-09 05:31:00 0.95 [facility] [place] CHEM PANEL 2019-01-09 05:31:00 139 [facility] [place] CHEM PANEL 2019-01-09 05:31:00 3.8 [facility] CHEM PANEL 2019-01-09 05:31:00 109 [facility] CHEM PANEL 2019-01-09 05:31:00 21 [facility] CHEM PANEL 2019-01-09 05:31:00 12.8 [facility] CHEM PANEL 2019-01-09 05:31:00 8.9 [facility] CHEM PANEL 2019-01-09 05:31:00 78 [facility] [place] HEMATOLOGY 2019-01-09 05:31:00 75.6 [facility] HEMATOLOGY 2019-01-09 05:31:00 14.5 [facility] [place] HEMATOLOGY 2019-01-09 05:31:00 7.8 [facility] HEMATOLOGY 2019-01-09 05:31:00 0.3 [facility] HEMATOLOGY 2019-01-09 05:31:00 1.8 [facility] HEMATOLOGY 2019-01-09 05:31:00 10.6 [facility] HEMATOLOGY 2019-01-09 05:31:00 2.0 [facility] HEMATOLOGY 2019-01-09 05:31:00 1.1 [facility] [place] HEMATOLOGY 2019-01-09 05:31:00 0.3 [facility] HEMATOLOGY 2019-01-09 05:31:00 14.0 [facility] HEMATOLOGY 2019-01-09 05:31:00 4.05 [facility] HEMATOLOGY 2019-01-09 05:31:00 12.4 [facility] [place] HEMATOLOGY 2019-01-09 05:31:00 37.4 [facility] HEMATOLOGY 2019-01-09 05:31:00 92.3 [facility] [place] HEMATOLOGY 2019-01-09 05:31:00 Test Item MCH (test code = MCH) 30.6 pg 27.0-31.0 [facility] LhlzivfKZKJVJMHDI9827-19-06 05:31:0033.2[facility]annHEMATOLOGY 2019-01-09 05:31:0014.4[facility] RoplmroSMHJSPGHBY8701-24-44 05:31:75644Mgdvdmlr ZmggfaiVQMKZBGMVN5405-93-25 05:31:007.4[facility] HermannPARATHYROID PROFILE 2019-01-09 05:31:001.19[facility] HermannPARATHYROID AWQOMLQ3310-30-29 05:31:00 1.19[facility] HermannCHEM RSDQM6890-76-43 06:58:002.1[facility]annCHEM PANEL 2019-01-08 06:58:002.2[facility] OayzvbyDYGQTJJGAUBV9086-35-89 06:58:0013.5 [facility] DfrekelMPYPVWXBCFFP9357-34-68 06:58:59756Zijxmcmg HermannELECTROLYTES 2019-01-08 06:58:0015[facility] ZxxosqlDRHXGVVXBKGI4047-01-74 06:58:000.80[facility] GygjjltUUWFXEVLPLFM4234-56-15 06:58:38946Ewtpmpfi UmtqqveAFUFMTDNNOQL8704-82-02 06:58:003.5[facility] YnwvuaoUAAPETUKSQPF3585-11-62 06:58:68467Cfeyahai Dick VBAOVNSACURI1368-16-74 06:58:0021[facility] ToduzgjUDCBHJLQBAWG0185-58-07 06:58:00 8.7[facility] CwqtugcYZHFQHLGCOHO4957-65-26 06:58:0088[facility] HermannHEMATOLOGY 2019-01-08 06:58:0018.2[facility] QxitelhBWTAWOGIMP5207-14-16 06:58:004.34[facility] KkhkejsFIGVNLOCVN3533-30-18 06:58:0013.0[facility] FpayaudTPTTDHHCVW1566-26-79 06:58:0040.0[facility] SdhrpvfKPZZZHOZFH4185-72-92 06:58:0092.1[facility] JBXXJXIEPM5974-72-96 06:58:00* Test Item Value Reference Range Interpretation Comments MCH (test code = MCH) 29.9 pg 27.0-31.0 [facility] IvdnnwzRFJABFDVYD1909-18-20 06:58:0032.5[facility] HermannHEMATOLOGY 2019-01-08 06:58:0014.5[facility] AvezcmmQFHXHUDROA1079-08-15 06:58:77212Pqzndwbu IcfgurqUNPAHXKKXV8159-24-34 06:58:007.4[facility] SpwbatnQFXGLPMPCR5553-14-54 06:58:0076.1[facility] UfqobidRANDHFNCYT4980-24-49 06:58:0014.8[facility] TFVJPOHKXQ6729-92-35 06:58:008.1[facility] EoudjjrXTUTLVVJBQ0241-01-06 06:58:000.1 [facility] CfjcphqUOVSVVQAPO3886-08-57 06:58:000.9[facility] HermannHEMATOLOGY 2019-01-08 06:58:0013.8[facility] RzrzggrNZRTZWQOYW2947-63-89 06:58:002.7[facility] HlcoizuXHEVKXPILB6133-01-56 06:58:001.5[facility] UryrsanSYQGFWUMJD5757-41-66 06:58:000.2[facility] HermannPARATHYROID POWKQWX8535-95-29 06:58:001.07[facility] HermannPARATHYROID CSTYSOZ4989-38-43 06:58:001.09[facility] HermannCHEM PANEL 2019-01-07 13:27:006.5[facility] HermannCHEM IXUPQ6581-83-31 13:27:003.6[facility] HermannCHEM IBTWA4026-04-57 13:27:0033[facility] HermannCHEM CMGFK0898-21-97 13:27:0023[facility] HermannCHEM VHHKG6443-93-24 13:27:0057[facility] HermannCHEM DRDYC2938-54-22 13:27:000.8[facility] HermannCHEM VAYLA0618-03-34 13:27:000.2 [facility]annCHEM RBDGF6974-06-12 13:27:000.6[facility] HermannCHEM PANEL 2019-01-07 13:27:002.9[facility] HermannCHEM PGNAK7149-10-45 13:27:00* Test Item Value Reference Range Interpretation Comments A/G Ratio (test code = A/G Ratio) 1.2 1 0.7-1.6 [facility] HritroiLPDBDGRUZU8844-83-44 13:27:001.15[facility] HermannCARDIAC ENZYMES 2019-01-07 06:35:00<0.02[facility] HermannCHEM VJOMW4434-62-42 06:35:006.6[facility] HermannCHEM BYSTC0490-96-49 06:35:003.7[facility] HermannCHEM VJFAR4938-94-45 06:35:0035[facility] HermannCHEM KAKJZ5981-69-85 06:35:0024[facility] HermannCHEM ALVFO3646-80-28 06:35:0061[facility] HermannCHEM TUKZU7881-98-84 06:35:000.9 [facility] HermannCHEM TSRRS7978-60-38 06:35:000.3[facility] HermannCHEM PANEL 2019-01-07 06:35:000.6[facility] HermannCHEM YXJKS7946-85-60 06:35:002.9[facility] HermannCHEM SERPC8521-91-90 06:35:00* Test Item Value Reference Range Interpretation Comments A/G Ratio (test code = A/G Ratio) 1.3 1 0.7-1.6 [facility] JlaiodoZYPBWMOBMT1514-68-68 06:35:0011.1[facility] HermannTOXICOLOGY 2019-01-07 06:35:000.90[facility] HermannCHEM WVTIM5892-73-80 05:05:11018Jtssgpqc HermannCHEM BLSDQ1923-75-49 05:05:0015[facility] HermannCHEM FJAQX0328-15-64 05:05:001.01[facility] HermannCHEM TSUQP8639-80-51 05:05:06337Buceupct HermannCHEM USYFE5118-56-48 05:05:004.1[facility] HermannCHEM NGOSO1292-81-10 05:05:87305 [facility] HermannCHEM KVOIF2239-17-50 05:05:0018[facility] HermannCHEM PANEL 2019-01-07 05:05:008.1[facility] HermannCHEM WHNIX0444-51-14 05:05:0072[facility] HermannCHEM JVBQX5537-95-65 05:05:0020.1[facility] HermannCHEM RGPQJ1866-85-66 05:05:001.8[facility] HermannCHEM UPDQJ6629-94-45 05:05:001.9[facility] HHHOELFAAT8418-42-20 05:05:008.5[facility] KelmhitBOGHOIRTPK0150-30-67 05:05:00 4.33[facility] LlmnmbaXQGAKADKKX1133-58-55 05:05:0013.4[facility] HermannHEMATOLOGY 2019-01-07 05:05:0040.2[facility] FnthwudHMXTGERGTF6564-82-97 05:05:0092.9[facility] EmnxcmoEFYZIEUHKE8894-19-33 05:05:00* Test Item Value Reference Range Interpretation Comments MCH (test code = MCH) 30.9 pg 27.0-31.0 [facility] FpymyekRGNOJUTDHJ1403-09-68 05:05:0033.3[facility] HermannHEMATOLOGY 2019-01-07 05:05:0014.4[facility] JyyctufWBJIJRWSJC8208-92-97 05:05:96821Azdatham EkrydrbMNZFTHLYMS9976-03-00 05:05:007.3[facility] VrfrndcZXKENMNFAV9517-25-26 05:05:0095.2[facility] HfjbrrhCPPLUIYAAD9003-40-85 05:05:002.0[facility] [place] XELLDENBJU3523-88-82 05:05:002.8[facility] PkwddlsTTSUODXAHE4473-94-98 05:05:008.1 [facility] YdrqkprIBECBBOWAC7140-33-86 05:05:000.2[facility] HermannHEMATOLOGY 2019-01-07 05:05:000.2[facility] HermannPARATHYROID UTMLPNA8447-37-82 05:05:001.06 [facility] HermannPARATHYROID IFURUVC4432-53-36 05:05:001.03[facility] [place] BACTERIAL - ROQQTAAJ1143-93-41 04:26:00Negative (01/06/19 11:26 PM)[facility] JnaujdtIFSAFICAMY3944-21-97 20:04:00* Test Item Value Reference Range Interpretation Comments PT (test code = PT) 14.4 s 12.0-14.7 [facility] YwntwyiZFGGQKTRIX7442-09-86 20:04:00* Test Item Value Reference Range Interpretation Comments PTT (test code = PTT) 28.3 s 22.9-35.8 [facility] GxkjmfyPTSOMBQHRK3781-48-65 20:04:00* Test Item Value Reference Range Interpretation Comments INR (test code = INR) 1.14 1 0.85-1.17 [facility] CiyghmqEDYLBOCVWW3788-15-04 20:04:00Normal (01/06/19 3:04 PM)[facility] KlyakezUZZBJGJCJZ3528-98-84 20:04:00Normal (01/06/19 3:04 PM)[facility] QKODNONDEQ5156-50-15 20:04:000.3[facility] RavaitfWJBYUKMQPK0422-41-65 20:04:000.5 [facility] GvxwlygBNEPLWPEHC0989-22-41 20:04:000.1[facility] HermannHEMATOLOGY 2019-01-06 20:04:000.1[facility] HermannBLOOD BANK KRCMNYI1968-75-82 14:55:00 Negative (01/06/19 9:55 AM)[facility] HermannCHEM FISCK1718-89-85 17:13:00* Test Item Value Reference Range Interpretation Comments B/C Ratio (test code = B/C Ratio) 19 1 6-25 [facility] HermannCHEM NXUYF6535-72-22 17:13:003.1[facility] HermannCHEM PANEL 2018-12-23 17:13:00* Test Item Value Reference Range Interpretation Comments A/G Ratio (test code = A/G Ratio) 1.3 1 0.7-1.6 [facility] HermannCHEM EIDPB2418-54-38 17:13:007.2[facility] HermannCHEM PANEL 2018-12-23 17:13:004.1[facility] HermannCHEM YVFHW6301-50-38 17:13:0041[facility] HermannCHEM RVFGV6461-96-55 17:13:0024[facility] HermannCHEM FENKZ2585-02-48 17:13:0086[facility] HermannCHEM RUMGJ4966-78-81 17:13:000.7[facility] [place] FYNXCPGGBN8648-14-80 17:13:00* Test Item Value Reference Range Interpretation Comments PT (test code = PT) 12.5 s 12.0-14.7 [facility] CenterNbvurfmHGAMHZMXAB6067-57-56 17:13:00* Test Item Value Reference Range Interpretation Comments PTT (test code = PTT) 30.8 s 22.9-35.8 [facility] CenterTflhdgfAHFUORJHIU8552-93-24 17:13:00* Test Item Value Reference Range Interpretation Comments INR (test code = INR) 0.95 1 0.85-1.17 [facility] CenterMmcawlqPHTZBJKWNB4059-48-39 17:13:00* Test Item Value Reference Range Interpretation Comments R-time (test code = R-time) 5.5 min 5.0-10.0 [facility] CenterXcmaiqnWTQWOHNJFV9884-10-09 17:13:00* Test Item Value Reference Range Interpretation Comments K-time (test code = K-time) 1.8 min 1.0-3.0 [facility] CenterIplcpxfPXFFJHKZBR3668-30-96 17:13:00* Test Item Value Reference Range Interpretation Comments Angle (test code = Angle) 64.2 degrees 53.0-72.0 [facility] CenterJbgwmtaFABYCQRNNB2269-98-48 17:13:00* Test Item Value Reference Range Interpretation Comments Max Amp (test code = Max Amp) 64.2 mm 50.0-70.0 [facility] CenterNfevievQBFVCTKCHW5553-38-06 17:13:009.0[facility]HE[facility] 2018-12-23 17:13:000.2[facility] FcrqrwvGKWHPMMQVK0734-10-25 17:13:00* Test Item Value Reference Range Interpretation Comments Coag Index (test code = Coag Index) 0.7 1 <=3.0 [facility] CenterFftaryoSHFREAURLK1353-12-19 17:13:00See Note (12/23/18 12:13 PM)[facility] CenterDnigwunERCSRREKDP0386-92-85 17:13:91078Zddfikek QdjxsxfXKQOLEGQXH7172-93-59 17:13:000.2[facility] CenterannCTA YZFGZ3919-05-94 22:31:00 [place] [address] Patient Name: JIM RIVERA MR #: [id number] : 1945 Age/Sex: 73/M Req #: [id number] Adm Physician: Ordered by: PIERCE CALERO MD Report #: [id number] Location: Room/Bed: Procedure: [id number] CT/CTA B RAIN Exam Date: Exam Time: REPORT STATUS: Signed History:Dizziness, rule out aneur ysm. Comparison studies:No direct comparison, compared with report of CT br ain from 12/09/2016. Technique: Axial images were obtained from the skul l base to the vertex with and without contrast. Coronal and sagittal images reconstructed from the axial data. Multi-planar and 3-D reconstructed images were obtained. Dose modulation, iterative reconstruction, and/or weight based adjustment of the mA/kV was utilized to reduce the radiation dose to as low as reasonably achievable. Intravenous contrast: 100 cc of Isovue 370. Fin dings: CT head: Skull/scalp: No lytic or blastic. lesions. No surgical c hanges. Parenchyma: No abnormal density. No acute hemorrhage, mass or ac [place] major vascular territorial infarct. Arteries: No density suggestive of thrombosis. Atherosclerotic calcification in bilateral carotid siphon. Dural sinuses: No abnormal density suggestive of thrombosis. Ventricles : No hydrocephalus or displacement. Extra-axial spaces: Prominent predomin antly bilateral frontal extra-axial space possibly related to volume loss. Pun ctate dystrophic calcification in right sylvian fissure may represent sequelae of prior infection/inflammation or trauma versus vascular calcification. Brain volume: Generalized predominantly bifrontal cerebral volume loss. Craniocervical junction: No mass, Chiari malformation, or basilar invagination . Sella: No mass. Paranasal/mastoid sinuses: Moderate mucosal thick ening in bilateral ethmoid sinuses. CTA head: Internal carotid arteries : Right: Moderate to severe atherosclerotic calcification in the cavernous, clinoid and supraclinoid segments. Well-circumscribed, saccular aneurysm with lobulated margin at the junction of proximal and mid M1 segment of right middl e cerebral artery approximately measures 0.6 x 0.6 x 0.4 cm (SAT) with a narro w neck measuring approximately 1.5 mm is directed anteriorly. 1.8 mm calcifi ed lesion along the course of distal M3 segment of right middle cerebral arter y possibly represents a calcified aneurysm (image 132, series 5). Left: Modera te atherosclerotic calcification in left cavernous, clinoid and supraclinoid s egments. Patent bilateral M1 and A1 segments. Vertebral arteries: Paten t. Basilar artery: Patent. Posterior cerebral arteries: Patent. Anatomical variants: Anterior communicating artery :Present Posterior com municating arteries: Patent on right, not visualized on left. Vertebral arteri es: Codominant. IMPRESSION: CT head: 1. No acute intracrania l abnormality. 2. Moderate predominantly bifrontal cerebral volume loss. CTA head: 1. 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 2. Moderate to severe atherosclerotic calcification in bilateral carotid siphon. Finding s were informed to ER physician Dr. Carlisle by phone at 10:58 PM on 09/20/2018. Signed by: Dr. Erin Rodriguez M.D. on 09/20/2018 11:00 PM Dictated By: ERIN RODRIGUEZ MD 2300 COPY TO: PIERCE CALERO MD Sodium [id number] 21:49:00* Test Item Value Reference Range Interpretation Comments Sodium Level (test code = 2951-2) 135 136-145 L [facility]assium Kxrnr9650-68-27 21:49:00* Test Item Value Reference Range Interpretation Comments Potassium Level (test code = 2823-3) 3.5 3.5-5.1 [facility] WestChloride [id number] 21:49:00* Test Item Value Reference Range Interpretation Comments Chloride Level (test code = 2075-0) 101 98-107 [facility] WestCarbon Dioxide [id number] 21:49:00* Test Item Value Reference Range Interpretation Comments Carbon Dioxide Level (test code = 2028-9) 24 22-29 [facility] WestAnion [id number] 21:49:00* Test Item Value Reference Range Interpretation Comments Anion Gap (test code = 88227-4) 13.5 8-16 [facility] WestBlood Urea Brzuypic9253-95-41 21:49:00* Test Item Value Reference Range Interpretation Comments Blood Urea Nitrogen (test code = 3094-0) 16 7-26 [facility] WestCreatinine2019-06-21 21:49:00* Test Item Value Reference Range Interpretation Comments Creatinine (test code = 2160-0) 1.06 0.72-1.25 [facility] WestBUN/Creatinine Sqyrf5859-88-62 21:49:00* Test Item Value Reference Range Interpretation Comments BUN/Creatinine Ratio (test code = 3097-3) 15 6-25 [facility] WestEstimat Glomerular Filtration Rate 2018-09-20 21:49:00* Test Item Value Reference Range Interpretation Comments Estimat Glomerular Filtration Rate (test code = 933604315) > 60 >60 Ranges were taken from the National Kidney Disease Education Program and the [facility] literature.Reference ranges:60 or greater: Jtefbe59-44 ( for 3 consecutive months): Chronic kidney disease 15 or less: Kidney failureHCA [facility] Healthcare WestGlucose Lrgvk4130-77-02 21:49:00* Test Item Value Reference Range Interpretation Comments Glucose Level (test code = PQB8596) 104 74-118 [facility] WestCalcium Ihblb0055-34-82 21:49:00* Test Item Value Reference Range Interpretation Comments Calcium Level (test code = 25699-5) 8.9 8.4-10.2 [facility] WestTotal Cbzkltjei5680-16-55 21:49:00* Test Item Value Reference Range Interpretation Comments Total Bilirubin (test code = 1975-2) 0.8 0.2-1.2 [facility] WestAspartate Amino Transf (AST/SGOT) 2018-09-20 21:49:00* Test Item Value Reference Range Interpretation Comments Aspartate Amino Transf (AST/SGOT) (test code = Aspartate Amino Transf (AST/SGOT)) 22 5-34 [facility] WestAlanine Aminotransferase (ALT/SGPT) 2018-09-20 21:49:00* Test Item Value Reference Range Interpretation Comments Alanine Aminotransferase (ALT/SGPT) (test code = 1742-6) 31 0-55 [facility] WestTotal Dtvkljz2768-45-01 21:49:00* Test Item Value Reference Range Interpretation Comments Total Protein (test code = 2885-2) 6.7 6.5-8.1 [facility] WestAlbumin2019-06-21 21:49:00* Test Item Value Reference Range Interpretation Comments Albumin (test code = 1751-7) 3.7 3.5-5.0 [facility] WestGlobulin2019-06-21 21:49:00* Test Item Value Reference Range Interpretation Comments Globulin (test code = 99187-0) 3.0 2.3-3.5 [facility] WestAlbumin/Globulin [id number] 21:49:00 * Test Item Value Reference Range Interpretation Comments Albumin/Globulin Ratio (test code = 1759-0) 1.2 0.8-2.0 [facility] WestAlkaline Rhgpnvvemvr9666-71-82 21:49:00* Test Item Value Reference Range Interpretation Comments Alkaline Phosphatase (test code = 6768-6) 95 40-150 [facility] WestCreatine Pzwitv2508-71-74 21:49:00* Test Item Value Reference Range Interpretation Comments Creatine Kinase (test code = 2157-6) 134 30-200 [facility] WestCreatine Kinase [id number] 21:49:00* Test Item Value Reference Range Interpretation Comments Creatine Kinase MB (test code = 38508-9) 4.20 0-5.0 [facility] WestTroponin [id number] 21:49:00* Test Item Value Reference Range Interpretation Comments Troponin I (test code = ELV2103) 0.014 0-0.300 [facility] WestWhite Blood Vaovo2540-98-07 20:31:00* Test Item Value Reference Range Interpretation Comments White Blood Count (test code = 6690-2) 8.53 4.8-10.8 [facility] WestRed Blood Yktjv2455-37-55 20:31:00* Test Item Value Reference Range Interpretation Comments Red Blood Count (test code = 789-8) 4.54 4.3-5.7 [facility] WestHemoglobin2019-06-21 20:31:00* Test Item Value Reference Range Interpretation Comments Hemoglobin (test code = 79062-4) 14.1 14.0-18.0 [facility] WestHematocrit2019-06-21 20:31:00* Test Item Value Reference Range Interpretation Comments Hematocrit (test code = 4544-3) 41.6 38.2-49.6 [facility] WestMean Corpuscular Mucmjl5149-87-84 20:31:00* Test Item Value Reference Range Interpretation Comments Mean Corpuscular Volume (test code = 787-2) 91.6 81-99 [facility] WestMean Corpuscular Tdsrgsbsye6001-27-83 20:31:00* Test Item Value Reference Range Interpretation Comments Mean Corpuscular Hemoglobin (test code = 785-6) 31.1 28-32 [facility] WestMean Corpuscular Hemoglobin Concent 2018-09-20 20:31:00* Test Item Value Reference Range Interpretation Comments Mean Corpuscular Hemoglobin Concent (test code = 786-4) 33.9 31-35 [facility] WestRed Cell Distribution Nuofe5781-61-05 20:31:00* Test Item Value Reference Range Interpretation Comments Red Cell Distribution Width (test code = 96594-8) 14.1 11.7 -14.4 [facility] WestPlatelet Hfcnc4568-36-98 20:31:00* Test Item Value Reference Range Interpretation Comments Platelet Count (test code = 777-3) 283 140-360 [facility] WestNeutrophils (%) (Auto)2018-09-20 20:31:00 * Test Item Value Reference Range Interpretation Comments Neutrophils (%) (Auto) (test code = 35390-5) 67.3 38.7-80.0 [facility] WestLymphocytes (%) (Auto)2018-09-20 20:31:00 * Test Item Value Reference Range Interpretation Comments Lymphocytes (%) (Auto) (test code = 736-9) 19.8 18.0-39.1 [facility] WestMonocytes (%) (Auto)2018-09-20 20:31:00* Test Item Value Reference Range Interpretation Comments Monocytes (%) (Auto) (test code = 5905-5) 7.5 4.4-11.3 [facility] WestEosinophils (%) (Auto)2018-09-20 20:31:00 * Test Item Value Reference Range Interpretation Comments Eosinophils (%) (Auto) (test code = 713-8) 4.6 0.0-6.0 [facility] WestBasophils (%) (Auto)2018-09-20 20:31:00* Test Item Value Reference Range Interpretation Comments Basophils (%) (Auto) (test code = 706-2) 0.6 0.0-1.0 [facility] WestIM GRANULOCYTES %2018-09-20 20:31:00* Test Item Value Reference Range Interpretation Comments IM GRANULOCYTES % (test code = IM GRANULOCYTES %) 0.2 0.0- 1.0 [facility] WestNeutrophils # (Auto)2018-09-20 20:31:00* Test Item Value Reference Range Interpretation Comments Neutrophils # (Auto) (test code = 751-8) 5.7 2.1-6.9 [facility] WestLymphocytes # (Auto)2018-09-20 20:31:00* Test Item Value Reference Range Interpretation Comments Lymphocytes # (Auto) (test code = 53963-2) 1.7 1.0-3.2 [facility] WestMonocytes # (Auto)2018-09-20 20:31:00* Test Item Value Reference Range Interpretation Comments Monocytes # (Auto) (test code = 742-7) 0.6 0.2-0.8 [facility] WestEosinophils # (Auto)2018-09-20 20:31:00* Test Item Value Reference Range Interpretation Comments Eosinophils # (Auto) (test code = 711-2) 0.4 0.0-0.4 [facility] WestBasophils # (Auto)2018-09-20 20:31:00* Test Item Value Reference Range Interpretation Comments Basophils # (Auto) (test code = 704-7) 0.1 0.0-0.1 [facility] WestAbsolute Immature Granulocyte (auto 2018-09-20 20:31:00* Test Item Value Reference Range Interpretation Comments Absolute Immature Granulocyte (auto (jamal t code = Absolute Immature Granulocyte (auto) 0.02 0-0.1 [facility] WestComprehensive metabolic 2000 panel - Serum or Jaqflh1099-86-12 10:46:00* Test Item Value Reference Range Interpretation Comments glucose (test code = glucose) 90 mg/dL 65-99 urea nitrogen (BUN) (test code = urea nitrogen (BUN)) 21 mg/dL 7-25 creatinine (test code = creatinine) 1.00 mg/dL 0.70-1.18 eGFR non-afr. chilean (test code = eGFR non-afr. chilean) 74 mL/min/1.73m2 > or = 60 eGFR (test code = eGFR ) 86 mL/min/1.73m2 > or = 60 BUN/creatinine ratio (test code = BUN/creatinine ratio) not applica ble 6-22 sodium (test code = sodium) 141 mmol/L 135-146 potassium (test code = potassium) 4.9 mmol/L 3.5-5.3 chloride (test code = chloride) 104 mmol/L 98-110 carbon dioxide (test code = carbon dioxide) 31 mmol/L 20-31 calcium (test code = calcium) 9.7 mg/dL 8.6-10.3 protein, total (test code = protein, total) 7.4 g/dL 6.1-8.1 albumin (test code = albumin) 4.6 g/dL 3.6-5.1 globulin (test code = globulin) 2.8 g/dL (calc) 1.9-3.7 albumin/globulin ratio (test code = albumin/globulin ratio) 1.6 (calc) 1.0-2.5 bilirubin, total (test code = bilirubin, total) 1.0 mg/dL 0.2-1. 2 alkaline phosphatase (test code = alkaline phosphatase) 83 U/L 40-115 AST (test code = AST) 26 U/L 10-35 ALT (test code = ALT) 22 U/L 9-46 [facility]Th[facility] (T[facility] [Mass/volume] in Serum or [id number] 10:46:00* Test Item Value Reference Range Interpretation Comments T4 (thyroxine), total (test code = T4 (thyroxine), total) 10.5 m cg/dL 4.5-12.0 [facility] HospitalThyrotropin [Units/volume] in Serum or Tkkpbt4708-57-66 10:46:00* Test Item Value Reference Range Interpretation Comments TSH (test code = TSH) 2.45 mIU/L 0.40-4.50 [facility] HospitalCBC W Auto Differential panel - Icidw9009-72-66 10:46:00 * Test Item Value Reference Range Interpretation Comments white blood cell count (test code = white blood cell count) 8.5 thousand/uL 3.8-10.8 red blood cell count (test code = red blood cell count) 5.16 million/uL 4.20-5.80 hemoglobin (test code = hemoglobin) 15.0 g/dL 13.2-17.1 hematocrit (test code = hematocrit) 45.2 % 38.5-50.0 MCV (test code = MCV) 87.6 fL 80.0-100.0 MCH (test code = MCH) 29.1 pg 27.0-33.0 MCHC (test code = MCHC) 33.2 g/dL 32.0-36.0 RDW (test code = RDW) 12.8 % 11.0-15.0 platelet count (test code = platelet count) 338 thousand/uL 140-400 MPV (test code = MPV) 9.3 fL 7.5-12.5 absolute neutrophils (test code = absolute neutrophils) 4888 arabella ls/uL 3113-7899 absolute lymphocytes (test code = absolute lymphocytes) 2491 arabella ls/uL 850-3900 absolute monocytes (test code = absolute monocytes) 638 cells/uL 20 0-950 absolute eosinophils (test code = absolute eosinophils) 434 cells/u L 15-500 absolute basophils (test code = absolute basophils) 51 cells/uL 0- 200 neutrophils (test code = neutrophils) 57.5 % lymphocytes (test code = lymphocytes) 29.3 % monocytes (test code = monocytes) 7.5 % eosinophils (test code = eosinophils) 5.1 % basophils (test code = basophils) 0.6 % [facility] HospitalHemoglobin A1c/Hemoglobin.total in Mxjrm7704-77-88 10:46:00* Test Item Value Reference Range Interpretation Comments hemoglobin A1C (test code = hemoglobin A1C) 5.9 % of total HGB <5.7 H EAG (mg/dL) (test code = EAG (mg/dL)) 123 (calc) EAG (mmol/L) (test code = EAG (mmol/L)) 6.8 (calc) [facility] HospitalTestosterone [Mass/volume] in Serum or Pctnub0145-35-61 10:46:00* Test Item Value Reference Range Interpretation Comments testosterone, total, males (adult), ia ( test code = testosterone, total, males (adult), ia) 268 NG/dL 250-827 [facility] HospitalCholesterol in LDL [Mass/volume] in Serum or Plasma 2015-09-16 00:00:00* Test Item Value Reference Range Interpretation Comments LDL (test code = LDL) 57 [facility] HospitalHemoglobin A1c/Hemoglobin.total in Xftrr1481-12-79 00:00:00* Test Item Value Reference Range Interpretation Comments A1C (test code = A1C) 6.0 [facility]CHE[facility] [place] [address] Patient Name: JIM RIVERA MR #: [id number] : 1945 Age/Sex: 71/M Req #: [id number] Adm Physician: Ordered by: KRYSTA HOFFMAN MD Report #: [id number] Location: ER Room/Bed: _ Procedure: [id number] DX/CHEST 2 VIEWS Exam Date: 12/09/16 Exam Time: 2009 REPORT STATUS: Signed EXAMI NATION: CHEST 2 VIEWS INDICATION: Hypertension COMPARIS ON: 05/27/2015 FINDINGS: TUBES and LINES: None. LUNGS: Lungs are well inflated. There are bibasilar atelectasis. There is no evidence of pneumonia or pulmonary edema. PLEURA: No pleural effusion or pneumothorax . HEART AND MEDIASTINUM: The cardiomediastinal silhouette is unremarkable. There are atherosclerotic calcifications within the aorta. BONES AND SOF T TISSUES: No acute osseous lesion. Soft tissues are unremarkable. UPPE R ABDOMEN: No free air under the diaphragm. IMPRESSION: No acute tho racic abnormality. Signed by: Dr. Chris Rivas M.D. on 12/09/2016 8:29 PM Dictated By: CHRIS SEAMAN MD 28 Transcribed By: WILLA on 12/09/162028 COPY TO: KRYSTA HOFFMAN MD CT BRAIN WO [place] [address] Patient Name: JIM RIVERA MR #: [id number] : 1945 Age/Sex: 71/M Req #: [id number] Adm Physician: Ordered by: KRYSTA HOFFMAN MD Report #: [id number] Location: ER Room/Bed: _ Procedure: [id number] CT/CT BRAIN WO Exam Date: 12/09/16 Exam Time: 2009 REPORT STATUS: Signed EXAMINA TION: Head CT without contrast. HISTORY:Dizziness, high blood pressure . COMPARISON:CT brain from 02/19/2014. TECHNIQUE: Multidetector axial images were obtained from the foramen magnum to the vertex without contrast. The images were reconstructed using brain and bone algorithms. Thin section b rain images were reformatted into coronal and sagittal planes. Intravenous contrast: None IMAGE QUALITY: Acceptable. FINDINGS: Skull/sca lp: No abnormality. Parenchyma: No abnormal density. No acute hemorrhage , mass or acute major vascular territorial infarct. Arteries: Atherosclero tic calcification in bilateral carotid siphon. Dural sinuses: No abnormal density suggestive of thrombosis. Ventricles: No hydrocephalus or displac ement. Extra-axial spaces: No abnormal density. Brain volume: Mode rate generalized cerebral volume loss Craniocervical junction: No mass, Ch iari malformation, or basilar invagination. Sella: No mass. Paran kiki/mastoid sinuses: Mild mucosal thickening in bilateral ethmoid sinuses. Incidental finding: Unchanged focal dystrophic calcification in right sylvi an fissure may either represent a sequelae of prior infection/inflammation or trauma versus a vascular calcification. IMPRESSION: No acute intracrani al abnormality. Moderate generalized cerebral volume loss. Signed by: Dr. Erin Rodriguez M.D. on 12/09/2016 8:33 PM Dictated By: ERIN VALENTINO MD 32 Transcribe d By: WILLA on 12/09/162032 COPY TO: KRYSTA HOFFMAN MD
[2019-11-23] MEDS ORDERED: ONDANSETRON HCL INJ 2MG/ML 2ML 2 MG/ML VIAL IV NR (19:00)
[2019-11-23] MEDS ORDERED: MORPHINE SULFATE INJ 4 MG/ML INJ 1ML IV PRN (19:00)
[2019-11-23] MEDS ORDERED: METHYLPREDNISOLONE SOD SUCC 125 MG/2ML VIAL IV NR (19:00)
[2019-11-23] MEDS ORDERED: KETOROLAC TROMETHAMINE 30 MG/ML VIAL IV NR (19:00)
[2019-11-23 19:19] LABS: BASOPHILS % 0.4 % (0.0-1.0); EOSINOPHILS # (AUTO) 0.1 (0.0-0.4); EOSINOPHILS % 0.9 % (0.0-6.0); HEMATOCRIT 45.8 % (38.2-49.6); HEMOGLOBIN 14.5 g/dL (14.0-18.0); LYMPHOCYTES # (AUTO) 1.4 (1.0-3.2); LYMPHOCYTES % 12.9 % (18.0-39.1); MEAN CORPUSCULAR HEMOGLOBIN 27.7 pg (28-32); MEAN CORPUSCULAR HGB CONC 31.7 g/dL (31-35); MEAN CORPUSCULAR VOLUME 87.6 fL (81-99); MONOCYTES # (AUTO) 0.6 (0.2-0.8); MONOCYTES % 6.1 % (4.4-11.3); NEUTROPHILS # (AUTO) 8.4 (2.1-6.9); NEUTROPHILS % 79.3 % (38.7-80.0); PLATELET COUNT 372 x10e3/uL (140-360); RED BLOOD COUNT 5.23 x10e6/uL (4.3-5.7); RED CELL DISTRIBUTION WIDTH 14.5 % (11.7-14.4)
--- NOTE | 2019-11-23 19:31 | Diagnostic Imaging Report ---
EXAMINATION: CHEST SINGLE (PORTABLE) INDICATION: Chest pain COMPARISON: None FINDINGS: TUBES and LINES: None. LUNGS: Hyperexpanded lungs. Subtle reticular opacities in the lung bases. No consolidations. PLEURA: No pleural effusion or pneumothorax. HEART AND MEDIASTINUM: The cardiomediastinal silhouette is unremarkable. There are atherosclerotic calcifications within the aorta. BONES AND SOFT TISSUES: No acute osseous lesion. Soft tissues are unremarkable. UPPER ABDOMEN: No free air under the diaphragm. IMPRESSION: Subtle reticular opacities in the lung bases are likely chronic scarring/fibrosis and atelectasis although an acute process is possible. Signed by: Simon Tafoya DO on 11/23/2019 7:27 PM
[2019-11-23 19:39] LABS: ALANINE AMINOTRANSFERASE 33 IU/L (0-55); ALBUMIN 3.8 g/dL (3.5-5.0); ALKALINE PHOSPHATASE 93 IU/L (40-150); ANION GAP 18.4 mmol/L (8-16); BLOOD UREA NITROGEN 17 mg/dL (7-26); BUN/CREATININE RATIO 16 (6-25); CALCIUM 9.5 mg/dL (8.4-10.2); CARBON DIOXIDE 22 mmol/L (22-29); CHLORIDE 104 mmol/L (98-107); CREATINE KINASE 148 IU/L (30-200); CREATININE, SERUM 1.06 mg/dL (0.72-1.25); EST GLOMERULAR FILTRATION RATE > 60 ML/MIN (60-); GLUCOSE 197 mg/dL (74-118); POTASSIUM 4.4 mmol/L (3.5-5.1); SODIUM 140 mmol/L (136-145)
[2019-11-23] MEDS ORDERED: ASPIRIN 81 MG CHEW TAB PO ONE (20:30)
--- OUTSIDE RECORDS SUMMARY | 2019-11-23 20:33 | XMS REPORT | Continuity of Care Document ---
Author Author Shoshana Jennings [employer] JIM [facility] [employer] Address Unknown Phone Unavailable Care Team Providers Care Sample Driller Name Role Phone [place] [employer] Unavailable Un available Problems Problem Status Onset Date Classification Date Reported Comments Source I67.1 Active 11/19/2018 [facility] 4 VESSEL DIAGNOSTIC CEREBRAL ANGIOGRAM Active 10/11/2018 [facility] R42 - DIZZINESS AND GIDDINESS Active 09/20/2018 [facility] [place] Backache (finding) Resolved Problem 01/12/2019 [facility], WANDA Dick, [facility] [place] Medications Medication Details Route Status Patient Instructions Ordering Provider Order Date Source Acetaminophen 325 MG / Hydrocodone Guy trate 5 MG Oral Tablet [[place] 5/325] 1 tab, PO, Q6H, PRN for pain, X 7 day, # 30 tab, 0 Refill(s) Active 01/10/2019 [facility] Metformin hydrochloride 500 MG Oral Tablet 500 mg, Route: PO, Drug form: TAB, BID, Dosing Weight 90.955, kg, Priority: NOW, Start date: 01/10/19 9:39:00 CDT, Duration: 30 day, Stop date: 02/09/19 9:00:00 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 01/10/2019 [facility] Docusate Sodium 100 MG Oral Capsule [Colace] 100 mg = 1 cap, PO, BID, # 28 cap, 0 Refill(s) Active 01/09/2019 [facility] nter sennosides, [facility] 8.6 MG Oral Tablet 17.2 mg = 2 tab, PO, Bedtime, PRN Constipation, X 10 day, # 20 tab, 0 Refill(s) Active 01/09/2019 [facility] Acetaminophen 300 MG / Codeine Phosphate 30 MG Oral Tablet [Tylenol with Codeine #3] 1 tab, PO, Q6H, PRN Pain, X 15 day, # 60 tab, 0 Refill(s) No Longer Active 01/09/2019 [facility] Ondansetron 4 MG Oral Tablet [Zofran] 4 mg = 1 tab, PO, Q8H, PRN Nausea/vomiting, # 30 tab, 0 Refill(s) Active 01/09/2019 [facility] nt phenytoin 100 mg oral capsule, extended release 300 mg = 3 cap, PO, QPM, # 90 cap, 1 Refill(s) Active 01/09/2019 [facility] nter Melatonin Notes: (Same as: Armida atonin) No Longer Active 01/08/2019 [facility] heparin Notes: porcine heparin No Longer Active 01/08/2019 [facility] Aspirin Notes: Take with food. No Longer Active 01/07/2019 [facility] Amlodipine Notes: (Same as: No rvasc) No Longer Active 01/07/2019 [facility] Atenolol 100 MG Oral Tablet No jamal: (Same As:Tenormin) No Longer Active 01/07/2019 [facility] ferrous sulfate Notes: Give wi th food. "Do Not Crush" No Longer Active 01/07/2019 [facility] Losartan Notes: (Same as: Coza ar) No Longer Active 01/07/2019 [facility] Thyroxine Notes: Take 1 hour b efore or 2 hours after meal; Enteral feeds may interefere with the absorption of this medication. (Same as:Synthroid, Levothroid) No Longer Active 01/07/2019 [facility] nt fosphenytoin Notes: (Same as: Cerebyx) Stated mg = mgPE. Refrigerate ANTICONVULSANT Do not confuse with celebrex. For adult patients only: Round to nearest 50 mg per Medical Staff approval MEDICATION WASTE Product Size: 500 mg Product Wasted: ___ mg Inactive 01/07/2019 [facility] Hydromorphone Notes: Same as D ilaudid Inactive 01/07/2019 [facility] Haldol Notes: (Same as: Haldol) Inactive 01/07/2019 [facility] fosphenytoin Notes: (Same as: Cerebyx) Stated mg = mgPE. Refrigerate ANTICONVULSANT Do not confuse with celebrex. For adult patients only: Round to nearest 50 mg per Medical Staff approval MEDICATION WASTE Product Size: 500 mg Product Wasted: ___ mg Inactive 01/07/2019 [facility] Iohexol 100 mL, Route: IVP, Dr ug Form: SOLN, Dosing Weight 90.955, kg, ONCALL, STAT, Start date: 01/07/19 0:49:00 CDT, Duration: 1 doses or times, Dose = 2.2ml/kg, Max dose = 100ml -- "To be infused by Radi ology Staff ONLY" Inactive 01/07/2019 [facility] Dextrose 50% Syringe 12.5 gm, 25 mL, Route: IVP, Drug Form: INJ, Dosing Weight 90.955, kg, PRN, PRN Blood Glucose Results, Start date: 01/06/19 22:52:00 CDT, Duration: 30 day, Stop date: 02/05/19 21:51:00 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 WASTE: F/P - Black; E - Municipal Trash Bin Stable for 31 days at room temperature Expires in days from Date No Longer Active 01/07/2019 [facility] nter Potassium Chloride Notes: ([facility] e as: KCL) Infuse no faster than 10 mEq/hr if given peripherally. No Longer Active 01/07/2019 [facility] sodium phosphate Notes: Infuse over 4 hour. Do not infuse phosphorous concurrently in the same line as TPN or IVF that contains calcium. For double lumen central lines, phosphorous may be infused in a separate lumen from TPN. No Longer Active 01/07/2019 [facility] nter potassium phosphate Notes: ([facility] as: K Phosphate.) Do not infuse phosphorous concurrently in the same line as TPN or IVF that contains calcium. For double lumen central lines, phosphorous may be infused in a separate lumen from TPN. 1 mMol phoshate has 1.47 mEq potassium Infuse over 4 hours No Longer Active 01/07/2019 [facility] potassium phosphate-sodium phosphate 250 mg-280 mg-160 mg oral powder for reconstitution Notes: (Same as: Phos-NaK) Each 1.5 gm pkt has 250mg phosphorous. Mix w/2.5oz water and stir. No Longer Active 01/07/2019 [facility] Magnesium Sulfate Notes: WASTE : F/P - Sink; E - Municipal Trash Bin No Longer Active 01/07/2019 [facility] nter Magnesium Oxide Notes: (Same a s: Mag-Ox 400) Magnesium oxide [id number] elemental magnesium Dose=____mg magnesium oxide (___mg elemental magnesium) No Longer Active 01/07/2019 [facility] nter Calcium Gluconate Notes: WASTE : F/P - Sink; E - Municipal Trash Bin No Longer Active 01/07/2019 [facility] nter Calcium Carbonate 500 MG Chewable Tablet Notes: (Same As: Tums) Calcium Carbonate 500 mg = 200 mg elemental calcium Dose = mg calcium carbonate ( mg elemental calcium) No Longer Active 01/07/2019 [facility] Saline Flush 0.9% Notes: (Same as: BD Posiflush) No Longer Active 01/07/2019 [facility] Pravastatin Notes: (Same as: P ravachol) No Longer Active 01/07/2019 [facility] ceFAZolin (SCIP) Notes: (Same as Ancef) No Longer Active 01/07/2019 [facility] tramadol hydrochloride 50 MG Oral Tablet Notes: Not to exceed 400mg/day. 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 Inactive 01/06/2019 [facility] Cefazolin Notes: (Same as Ance f) Inactive 01/06/2019 [facility] Insulin regular 5 unit, Route: IV, ONCE, Dosing Weight 84.091, kg, Start date: 01/06/19 15:23:00 CDT, Stop date: 01/06/19 15:23:00 CDT Inactive 01/06/2019 [facility] sugammadex (ANES) Route: IV, D rug form: SOLN, ONCE, Stop date: 01/06/19 15:15:00 CDT Inactive 01/06/2019 [facility] nter ondansetron (ANES) Route: IV, Drug form: INJ, ONCE, Stop date: 01/06/19 14:56:00 CDT Inactive 01/06/2019 [facility] nter Hydralazine 10 mg, Route: IVP, Q20Min, Dosing Weight 84.091, kg, PRN Elevated BP, Start date: 01/06/19 14:47:00 CDT, Duration: 2 doses or times, Stop date: Limited # of times Inactive 01/06/2019 [facility] nter Labetalol 10 mg, Route: IVP, Q 5Min, Dosing Weight 84.091, kg, PRN Elevated BP, Start date: 01/06/19 14:47:00 CDT, Duration: 5 doses or times, Stop date: Limited # of times Inactive 01/06/2019 [facility] nter Oxycodone Hydrochloride 5 MG Oral Tablet 10 mg, Route: PO, Drug form: TAB, Q4H, Dosing Weight 84.091, kg, PRN Pain Score 7-10, Start date: 01/06/19 14:47:00 CDT, Duration: 30 day, Stop date: 02/05/19 14:46:00 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 Inactive 01/06/2019 [facility] Oxycodone 5 mg, Route: PO, Gucci g form: LIQ, Q4H, Dosing Weight 84.091, kg, PRN Pain Score 7-10, Start date: 01/06/19 14:47:00 CDT, Duration: 30 day, Stop date: 02/05/19 14:46:00 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 Inactive 01/06/2019 [facility] Hydromorphone 0.5 mg, Route: I CARRIER LOADER, Q5Min, Dosing Weight 84.091, kg, PRN Pain Score 7-10, Start date: 01/06/19 14:47:00 CDT, Duration: 4 doses or times, Stop date: Limited # of times Inactive 01/06/2019 [facility] Flumazenil 0.2 mg, Route: IVP, PRN, Dosing Weight 84.091, kg, PRN Benzodiazepine Reversal, Initial dose, Start date: 01/06/19 14:47:00 CDT, Duration: 30 day, Stop date: 02/05/19 13:46:00 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 Inactive 01/06/2019 [facility] Naloxone 0.4 mg, Route: IVP, Q 2MIN, Dosing Weight 84.091, kg, PRN Narcotic Reversal, Start date: 01/06/19 14:47:00 CDT, Duration: 8 doses or times, Stop date: Limited # of times Inactive 01/06/2019 [facility] nt Ondansetron 4 mg, Route: IVP, ONCE, Dosing Weight 84.091, kg, PRN Nausea & Vomiting, Start date: 01/06/19 14:47:00 CDT Inactive 01/06/2019 [facility] Sodium Chloride 0.9% IV 1,000 mL 1,000 mL, Rate: 75 ml/hr, Infuse over: 13.3 hr, Route: IV, Dosing Weight 84.091 kg, Total Volume: 1,000, Start date: 01/06/19 14:25:00 CDT, Duration: 30 day, Stop date: 02/05/19 14:24:00 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, 2.08, m2, 0 No Longer Active 01/06/2019 [facility] Labetalol 10 mg, 2 mL, Route: IVP, Drug form: INJ, Q15Min, Dosing Weight 84.091, kg, PRN Hypertension, Start date: 01/06/19 14:25:00 CDT, Duration: 30 day, Stop date: 02/05/19 13:24:00 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, 0 No Longer Active 01/06/2019 [facility] Hydralazine Notes: (Same as: A presoline) Push over 5 minutes No Longer Active 01/06/2019 [facility] Ondansetron Notes: (Same as: Deloris kang) MEDICATION WASTE Product Size: 4 mg Product Wasted: ___ mg No Longer Active 01/06/2019 [facility] Acetaminophen 325 MG / Hydrocodone Guy trate 10 MG Oral Tablet [[place] 10/325] Notes: Do not exceed 4gm/day of acetamin ophen. (Same as: [place] 325/10) Inactive 01/06/2019 [facility] Dilaudid Notes: Same as Dilaud id Inactive 01/06/2019 [facility] Benadryl Notes: (Same as: Taylor dryl) Inactive 01/06/2019 [facility] phenol Notes: Chloraseptic Spr ay (Same as: Chloraseptic, Sore Throat [place]) WASTE: F/P - Black; E - Municipal Trash Bin No Longer Active 01/06/2019 [facility] Bisacodyl Notes: (Same As: Dul colax, Bisco-Lax) No Longer Active 01/06/2019 [facility] Robaxin Notes: (Same as:Robaxi n) No Longer Active 01/06/2019 [facility] Melatonin 3 MG Extended Release Tablet Notes: (Same as: Melatonin) No Longer Active 01/06/2019 [facility] Tylenol Notes: Do not exceed 4 gm/day. (Same as: Tylenol) No Longer Active 01/06/2019 [facility] Reglan Notes: (Same as: Reglan) No Longer Active 01/06/2019 [facility] Phenergan Notes: Do not give I V push. (Same as: Phenergan) No Longer Active 01/06/2019 [facility] Saline Flush 0.9% Notes: (Same as: BD Posiflush) No Longer Active 01/06/2019 [facility] sugammadex Notes: (Same as: Br idion) No Longer Active 01/06/2019 [facility] norepinephrine (ANES) Route: I V, Drug form: INJ, ONCE, Stop date: 01/06/19 13:55:00 CDT Inactive 01/06/2019 [facility] nter vasopressin (ANES) Route: IV, Drug form: INJ, ONCE, Stop date: 01/06/19 13:45:00 CDT Inactive 01/06/2019 [facility] nter norepinephrine (ANES) 10 microgram Route: IV, Drug form: INJ, Start date: 01/06/19 13:40:00 CDT, Stop date: 01/06/19 14:40:00 CDT Inactive 01/06/2019 [facility] phenylephrine (ANES) Route: IV , Drug form: INJ, ONCE, Stop date: 01/06/19 13:25:00 CDT Inactive 01/06/2019 [facility] nter lidocaine (ANES) Route: IV, Dr ug form: INJ, ONCE, Stop date: 01/06/19 12:49:00 CDT Inactive 01/06/2019 [facility] nter propofol (ANES) Route: IV, Gucci g form: INJ, ONCE, Stop date: 01/06/19 12:49:00 CDT Inactive 01/06/2019 [facility] nter fentaNYL (ANES) Route: IV, Gucci g form: INJ, ONCE, Stop date: 01/06/19 12:49:00 CDT Inactive 01/06/2019 [facility] nter rocuronium (ANES) Route: IV, D rug form: INJ, ONCE, Stop date: 01/06/19 12:44:00 CDT Inactive 01/06/2019 [facility] nter dexamethasone (ANES) Route: IV , Drug form: INJ, ONCE, Stop date: 01/06/19 12:44:00 CDT Inactive 01/06/2019 [facility] nter ceFAZolin (ANES) Route: IV, Dr ug form: INJ, ONCE, Stop date: 01/06/19 12:38:00 CDT Inactive 01/06/2019 [facility] nter fosphenytoin (ANES) 1000 mg Ro bushra: IV, Drug form: INJ, Start date: 01/06/19 12:38:00 CDT, Stop date: 01/06/19 13:38:00 CDT Inactive 01/06/2019 [facility] SUFentanil (ANES) 50 microgram Route: IV, Drug form: INJ, Start date: 01/06/19 12:00:00 CDT, Stop date: 01/06/19 13:00:00 CDT Inactive 01/06/2019 [facility] propofol (ANES) 10 mg Route: I V, Drug form: INJ, Start date: 01/06/19 11:59:00 CDT, Stop date: 01/06/19 12:59:00 CDT Inactive 01/06/2019 [facility] Sodium Chloride 0.9% IV (ANES) 1000 mL Route: IV, Total Volume: 1,000, Start date: 01/06/19 11:24:00 CDT, Stop date: 01/06/19 12:24:00 CDT Inactive 01/06/2019 [facility] Lactated Ringers Injection IV (ANES) 1000 mL Route: IV, Total Volume: 1,000, Start date: 01/06/19 11:24:00 CDT, Stop date: 01/06/19 12:24:00 CDT Inactive 01/06/2019 [facility] ceFAZolin Notes: (Same as Nikhil fischer) Inactive 01/06/2019 [facility] Pravastatin 40 mg, PO, Bedtime Active 12/24/2018 [facility] Acetaminophen 325 MG / Hydrocodone Guy trate 10 MG Oral Tablet [[place] 10/325] 1 tab, PO, PRN, 0 Refill(s) No Longer Active 12/24/2018 [facility] Naproxen 500 mg, PO, PRN No Longer Active 12/24/2018 [facility] Flexeril 10 mg, PO, PRN Active 12/24/2018 [facility] nter Omnipaque 300 130 mL, Route: I NTRAARTERIAL, Dosing Weight 81.818, kg, ONCE, Start date: 10/30/18 8:58:00 CDT, Stop date: 10/30/18 8:58:00 CDT Inactive 10/30/2018 [facility] Fentanyl 50 microgram, Route: IV, ONCE, Dosing Weight 81.818, kg, Start date: 10/30/18 8:16:00 CDT, Stop date: 10/30/18 8:16:00 CDT Inactive 10/30/2018 [facility] Versed 1 mg, Route: IV, ONCE, Dosing Weight 81.818, kg, Start date: 10/30/18 8:15:00 CDT, Stop date: 10/30/18 8:15:00 CDT Inactive 10/30/2018 [facility] ferrous sulfate 325 mg oral enteric coated tablet 325 mg = 1 tab, PO, Daily, 0 Refill(s) Active 10/30/2018 [facility] n[facility] Fish Oil 1000 mg oral capsule 1,000 mg = 1 cap, PO, TID, 0 Refill(s) Active 10/30/2018 [facility] Aspirin 325 MG Oral Tablet 325 mg = 1 tab, PO, Daily, 0 Refill(s) Active 10/30/2018 [facility] omeprazole 20 mg oral enteric coated tablet 20 mg = 1 tab, PO, Daily, 0 Refill(s) Active 10/30/2018 [facility] nt zolpidem 10 mg oral tablet 10 mg = 1 tab, PO, Bedtime, 0 Refill(s) Active 10/30/2018 [facility] levothyroxine 75 mcg (0.075 mg) oral tablet 75 microgram = 1 tab, PO, Daily, 0 Refill(s) Active 10/30/2018 [facility] nt Metformin hydrochloride 500 MG Oral Tablet 500 mg = 1 tab, PO, BID, 0 Refill(s) Active 10/30/2018 [facility] atorvastatin 40 mg oral tablet 40 mg = 1 tab, PO, Daily, 0 Refill(s) Active 10/30/2018 [facility] amLODIPine 10 mg oral tablet 1 0 mg = 1 tab, PO, Daily, 0 Refill(s) Active 10/30/2018 [facility] losartan 100 mg oral tablet 10 0 mg = 1 tab, PO, Daily, 0 Refill(s) Active 10/30/2018 [facility] Atenolol 100 MG Oral Tablet 10 0 mg = 1 tab, PO, Daily, 0 Refill(s) Active 10/30/2018 [facility] Allergies, Adverse Reactions, Alerts No Known Medication Allergies Immunizations No Data Provided for This Section Results Order Name Results Value Reference Range Date Interpretation Comments Source CARDIAC ENZYMES Troponin-I 0.03 0.00 - 0.40 01/09/2019 [facility] CHEM PANEL Magnesium Lvl 2.0 1.8 - 2.4 01/09/2019 [facility] CHEM PANEL Phosphorus 1.9 2.5 - 4.5 01/09/2019 [facility] CHEM PANEL Glucose Lvl 180 70 - 99 01/09/2019 [facility] CHEM PANEL BUN 32 7 - 22 01/09/2019 [facility] CHEM PANEL Creatinine Lvl 0.95 0.50 - 1.40 01/09/2019 [facility] CHEM PANEL Sodium Lvl 139 135 - 145 01/09/2019 [facility] CHEM PANEL Potassium Lvl 3.8 3.5 - 5.1 01/09/2019 [facility] CHEM PANEL Chloride Lvl 109 95 - 109 01/09/2019 [facility] CHEM PANEL CO2 21 24 - 32 01/09/2019 [facility] CHEM PANEL AGAP 12.8 10.0 - 20.0 01/09/2019 [facility] CHEM PANEL Calcium Lvl 8.9 8.5 - 10.5 01/09/2019 [facility] CHEM PANEL eGFR 78 01/09/2019 Result Comment: [...] should be multiplied by the estimated BMI. [facility] HEMATOLOGY Segs 75.6 45.0 - 75.0 01/09/2019 [facility] HEMATOLOGY Lymphocytes 14.5 20.0 - 40.0 01/09/2019 [facility] HEMATOLOGY Monocytes 7.8 2.0 - 12.0 01/09/2019 [facility] HEMATOLOGY Eosinophils 0.3 0.0 - 4.0 01/09/2019 [facility] HEMATOLOGY Basophils 1.8 0.0 - 1.0 01/09/2019 [facility] HEMATOLOGY Neutrophils # 10.6 1.5 - 8.1 01/09/2019 [facility] HEMATOLOGY Lymphocytes # 2.0 1.0 - 5.5 01/09/2019 [facility] HEMATOLOGY Monocytes # 1.1 0.0 - 0.8 01/09/2019 [facility] HEMATOLOGY Basophils # 0.3 0.0 - 0.2 01/09/2019 [facility] HEMATOLOGY WBC 14.0 3.7 - 10.4 01/09/2019 [facility] HEMATOLOGY RBC 4.05 4.70 - 6.10 01/09/2019 [facility] HEMATOLOGY Hgb 12.4 14.0 - 18.0 01/09/2019 [facility] HEMATOLOGY Hct 37.4 42.0 - 54.0 01/09/2019 [facility] HEMATOLOGY MCV 92.3 80.0 - 94.0 01/09/2019 [facility] HEMATOLOGY MCH 30.6 27.0 - 31.0 01/09/2019 [facility] HEMATOLOGY MCHC 33.2 32.0 - 36.0 01/09/2019 [facility] HEMATOLOGY RDW 14.4 11.5 - 14.5 01/09/2019 [facility] HEMATOLOGY Platelet 271 133 - 450 01/09/2019 [facility] HEMATOLOGY MPV 7.4 7.4 - 10.4 01/09/2019 [facility] PARATHYROID PROFILE Ca Ion WB 1.19 1.05 - 1.25 01/09/2019 [facility] PARATHYROID PROFILE Ca Norm WB 1.19 1.05 - 1.25 01/09/2019 [facility] CHEM PANEL Magnesium Lvl 2.1 1.8 - 2.4 01/08/2019 [facility] CHEM PANEL Phosphorus 2.2 2.5 - 4.5 01/08/2019 [facility] ELECTROLYTES AGAP 13.5 10.0 - 20.0 01/08/2019 [facility] ELECTROLYTES Glucose Lvl 171 70 - 99 01/08/2019 [facility] ELECTROLYTES BUN 15 7 - 22 01/08/2019 [facility] ELECTROLYTES Creatinine Lvl 0.8 0 0.50 - 1.40 01/08/2019 [facility] ELECTROLYTES Sodium Lvl 140 135 - 145 01/08/2019 [facility] ELECTROLYTES Potassium Lvl 3.5 3.5 - 5.1 01/08/2019 [facility] ELECTROLYTES Chloride Lvl 109 95 - 109 01/08/2019 [facility] ELECTROLYTES CO2 21 24 - 32 01/08/2019 [facility] ELECTROLYTES Calcium Lvl 8.7 8.5 - 10.5 01/08/2019 [facility] ELECTROLYTES eGFR 88 01/08/2019 Result Comment: The [...] should be multiplied by the estimated BMI. [facility] HEMATOLOGY WBC 18.2 3.7 - 10.4 01/08/2019 [facility] HEMATOLOGY RBC 4.34 4.70 - 6.10 01/08/2019 [facility] HEMATOLOGY Hgb 13.0 14.0 - 18.0 01/08/2019 [facility] HEMATOLOGY Hct 40.0 42.0 - 54.0 01/08/2019 [facility] HEMATOLOGY MCV 92.1 80.0 - 94.0 01/08/2019 [facility] HEMATOLOGY MCH 29.9 27.0 - 31.0 01/08/2019 [facility] HEMATOLOGY MCHC 32.5 32.0 - 36.0 01/08/2019 [facility] HEMATOLOGY RDW 14.5 11.5 - 14.5 01/08/2019 [facility] HEMATOLOGY Platelet 256 133 - 450 01/08/2019 [facility] HEMATOLOGY MPV 7.4 7.4 - 10.4 01/08/2019 [facility] HEMATOLOGY Segs 76.1 45.0 - 75.0 01/08/2019 [facility] HEMATOLOGY Lymphocytes 14.8 20.0 - 40.0 01/08/2019 [facility] HEMATOLOGY Monocytes 8.1 2.0 - 12.0 01/08/2019 [facility] HEMATOLOGY Eosinophils 0.1 0.0 - 4.0 01/08/2019 [facility] HEMATOLOGY Basophils 0.9 0.0 - 1.0 01/08/2019 [facility] HEMATOLOGY Neutrophils # 13.8 1.5 - 8.1 01/08/2019 [facility] HEMATOLOGY Lymphocytes # 2.7 1.0 - 5.5 01/08/2019 [facility] HEMATOLOGY Monocytes # 1.5 0.0 - 0.8 01/08/2019 [facility] HEMATOLOGY Basophils # 0.2 0.0 - 0.2 01/08/2019 [facility] PARATHYROID PROFILE Ca Ion WB 1.07 1.05 - 1.25 01/08/2019 [facility] PARATHYROID PROFILE Ca Norm WB 1.09 1.05 - 1.25 01/08/2019 [facility] CHEM PANEL Total Protein 6.5 6.4 - 8.4 01/07/2019 [facility] CHEM PANEL Albumin Lvl 3.6 3.5 - 5.0 01/07/2019 [facility] CHEM PANEL ALT 33 0 - 65 01/07/2019 [facility] CHEM PANEL AST 23 0 - 37 01/07/2019 [facility] CHEM PANEL Alk Phos 57 39 - 136 01/07/2019 [facility] CHEM PANEL Bili Total 0.8 0.2 - 1.3 01/07/2019 [facility] CHEM PANEL Bili Direct 0.2 0.0 - 0.3 01/07/2019 [facility] CHEM PANEL Bili Indirect 0.6 0.0 - 1.0 01/07/2019 [facility] CHEM PANEL Globulin 2.9 2.7 - 4.2 01/07/2019 [facility] CHEM PANEL A/G Ratio 1.2 0.7 - 1.6 01/07/2019 [facility] TOXICOLOGY Phenytoin Free 1.15 1.00 - 2.00 01/07/2019 [facility] CARDIAC ENZYMES Troponin-I <0.02 0.00 - 0.40 01/07/2019 [facility] CHEM PANEL Total Protein 6.6 6.4 - 8.4 01/07/2019 [facility] CHEM PANEL Albumin Lvl 3.7 3.5 - 5.0 01/07/2019 [facility] CHEM PANEL ALT 35 0 - 65 01/07/2019 [facility] CHEM PANEL AST 24 0 - 37 01/07/2019 [facility] CHEM PANEL Alk Phos 61 39 - 136 01/07/2019 [facility] CHEM PANEL Bili Total 0.9 0.2 - 1.3 01/07/2019 [facility] CHEM PANEL Bili Direct 0.3 0.0 - 0.3 01/07/2019 [facility] CHEM PANEL Bili Indirect 0.6 0.0 - 1.0 01/07/2019 [facility] CHEM PANEL Globulin 2.9 2.7 - 4.2 01/07/2019 [facility] CHEM PANEL A/G Ratio 1.3 0.7 - 1.6 01/07/2019 [facility] TOXICOLOGY Phenytoin Total 11.1 10.0 - 20.0 01/07/2019 [facility] TOXICOLOGY Phenytoin Free 0.90 1.00 - 2.00 01/07/2019 [facility] CHEM PANEL Glucose Lvl 224 70 - 99 01/07/2019 [facility] CHEM PANEL BUN 15 7 - 22 01/07/2019 [facility] CHEM PANEL Creatinine Lvl 1.01 0.50 - 1.40 01/07/2019 [facility] CHEM PANEL Sodium Lvl 142 135 - 145 01/07/2019 [facility] CHEM PANEL Potassium Lvl 4.1 3.5 - 5.1 01/07/2019 [facility] CHEM PANEL Chloride Lvl 108 95 - 109 01/07/2019 [facility] CHEM PANEL CO2 18 24 - 32 01/07/2019 [facility] CHEM PANEL Calcium Lvl 8.1 8.5 - 10.5 01/07/2019 [facility] CHEM PANEL eGFR 72 01/07/2019 Result Comment: [...] should be multiplied by the estimated BMI. [facility] CHEM PANEL AGAP 20.1 10.0 - 20.0 01/07/2019 [facility] CHEM PANEL Magnesium Lvl 1.8 1.8 - 2.4 01/07/2019 [facility] CHEM PANEL Phosphorus 1.9 2.5 - 4.5 01/07/2019 [facility] HEMATOLOGY WBC 8.5 3.7 - 10.4 01/07/2019 [facility] HEMATOLOGY RBC 4.33 4.70 - 6.10 01/07/2019 [facility] HEMATOLOGY Hgb 13.4 14.0 - 18.0 01/07/2019 [facility] HEMATOLOGY Hct 40.2 42.0 - 54.0 01/07/2019 [facility] HEMATOLOGY MCV 92.9 80.0 - 94.0 01/07/2019 [facility] HEMATOLOGY MCH 30.9 27.0 - 31.0 01/07/2019 [facility] HEMATOLOGY MCHC 33.3 32.0 - 36.0 01/07/2019 [facility] HEMATOLOGY RDW 14.4 11.5 - 14.5 01/07/2019 [facility] HEMATOLOGY Platelet 257 133 - 450 01/07/2019 [facility] HEMATOLOGY MPV 7.3 7.4 - 10.4 01/07/2019 [facility] HEMATOLOGY Segs 95.2 45.0 - 75.0 01/07/2019 [facility] HEMATOLOGY Lymphocytes 2.0 20.0 - 40.0 01/07/2019 [facility] HEMATOLOGY Monocytes 2.8 2.0 - 12.0 01/07/2019 [facility] HEMATOLOGY Neutrophils # 8.1 1.5 - 8.1 01/07/2019 [facility] HEMATOLOGY Lymphocytes # 0.2 1.0 - 5.5 01/07/2019 [facility] HEMATOLOGY Monocytes # 0.2 0.0 - 0.8 01/07/2019 [facility] PARATHYROID PROFILE Ca Ion WB 1.06 1.05 - 1.25 01/07/2019 [facility] PARATHYROID PROFILE Ca Norm WB 1.03 1.05 - 1.25 01/07/2019 [facility] BACTERIAL - SEROLOGY MRSA by PCR Negative (01/06/19 11:26 PM) 01/07/2019 [facility] HEMATOLOGY PT 14.4 12.0 - 14.7 01/06/2019 [facility] HEMATOLOGY PTT 28.3 22.9 - 35.8 01/06/2019 [facility] HEMATOLOGY INR 1.14 0.85 - 1.17 01/06/2019 [facility] HEMATOLOGY RBC Morph Nida l (01/06/19 3:04 PM) Normal 01/06/2019 [facility] HEMATOLOGY Plt Morph Nida l (01/06/19 3:04 PM) Normal 01/06/2019 [facility] HEMATOLOGY Eosinophils 0.3 0.0 - 4.0 01/06/2019 [facility] HEMATOLOGY Basophils 0.5 0.0 - 1.0 01/06/2019 [facility] HEMATOLOGY Eosinophils # 0.1 0.0 - 0.5 01/06/2019 [facility] HEMATOLOGY Basophils # 0.1 0.0 - 0.2 01/06/2019 [facility] BLOOD BANK RESULTS ABO/Rh O POS 01/06/2019 [facility] BLOOD BANK RESULTS Antibody Scrn Negative (01/06/19 9:55 AM) 01/06/2019 [facility] CHEM PANEL B/C Ratio 19 6 - 25 12/23/2018 [facility] CHEM PANEL Globulin 3.1 2.7 - 4.2 12/23/2018 [facility] CHEM PANEL A/G Ratio 1.3 0.7 - 1.6 12/23/2018 [facility] CHEM PANEL Total Protein 7.2 6.4 - 8.4 12/23/2018 [facility] CHEM PANEL Albumin Lvl 4.1 3.5 - 5.0 12/23/2018 [facility] CHEM PANEL ALT 41 0 - 65 12/23/2018 [facility] CHEM PANEL AST 24 0 - 37 12/23/2018 [facility] CHEM PANEL Alk Phos 86 39 - 136 12/23/2018 [facility] CHEM PANEL Bili Total 0.7 0.2 - 1.3 12/23/2018 [facility] HEMATOLOGY PT 12.5 12.0 - 14.7 12/23/2018 [facility] HEMATOLOGY PTT 30.8 22.9 - 35.8 12/23/2018 [facility] HEMATOLOGY INR 0.95 0.85 - 1.17 12/23/2018 [facility] HEMATOLOGY TEG Interp Throm belastograph results are within reference ranges. These indicate adequate hemostasis. Note that TEG does not show effect of NSAIDs or P2Y12 inhibitors. CPT:44435 12/23/2018 [facility] HEMATOLOGY R-time 5.5 5.0 - 10.0 12/23/2018 [facility] HEMATOLOGY K-time 1.8 1.0 - 3.0 12/23/2018 [facility] HEMATOLOGY Angle 64.2 53.0 - 72.0 12/23/2018 [facility] HEMATOLOGY Max Amp 64.2 50.0 - 70.0 12/23/2018 [facility] HEMATOLOGY G-value 9.0 4.5 - 11.0 12/23/2018 [facility] HEMATOLOGY Ly30 0.2 0.0 - 7.5 12/23/2018 [facility] HEMATOLOGY Coag Index 0.7 -3.0-3.0 - 3.0 12/23/2018 [facility] HEMATOLOGY TEG Data See N ote (12/23/18 12:13 PM) 12/23/2018 [facility] HEMATOLOGY ASA Effect Plt 391 12/23/2018 [facility] HEMATOLOGY Eosinophils # 0.2 0.0 - 0.5 12/23/2018 [facility] Pathology Reports No Data Provided for This [...] normal limits. No acute osseous abnormalities. 01/09/2019 [facility] Brain wo contrast CT EXAM: CT BRAIN [...] findings indicated above cannot be assessed. 01/06/2019 [facility] Brain/Neck Stroke perfusion CTA ADDENDUM: Additional MIP [...] distal internal carotid artery {NASCET criteria}.) 01/06/2019 [facility] Chest 1 v for Placement DX EXA [...] c atheter. 2. Bibasilar subsegmental atelectasis. 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 FELLOW: ANNETTE Prakash MD COMPARISON: CTA head and neck FLUOROSCOPY [...] a single wall micropuncture technique and a 5-Gibraltarian sheath was placed. A 5-Gibraltarian Vert catheter was coaxially advanced over a [...] into the proximal internal carotid artery. 10/30/2018 [facility] Spine lumbar wo contrast MRI S pine [...] tenosis. Severe bilateral foraminal stenosis. 10/17/2018 [facility] [place] Brain wo contrast MRI Brain wo contrast [...] Visualized infracranial: Negative --Nasopharynx: Negative --Parotids: Negative --Montessori Teacher space: Negative --C-spine: Negative IMPRESSION: 1. No evidence of acute stroke, acute h emorrhage, or mass lesion. 2. 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 3. Mucosal thickening in the ethmoid an d maxillary sinuses. [id number] 10/04/2018 WANDA Ghotra Consultation Notes No Data Provided for This Section Discharge Summaries No Data Provided for This Section History and Physicals No Data Provided for This Section Vital Signs Vital Sign Value Date Comments Source Temperature Oral (F) 97.6 F 01/10/2019 [facility] Heart Rate 82 01/10/2019 [facility] Respitory Rate 17 01/10/2019 [facility] Systolic (mm Hg) 129 01/10/2019 [facility] Diastolic (mm Hg) 72 01/10/2019 [facility] Temperature Oral (F) 97.6 F 01/10/2019 [facility] Heart Rate 83 01/10/2019 [facility] Respitory Rate 17 01/10/2019 [facility] Systolic (mm Hg) 133 01/10/2019 [facility] Diastolic (mm Hg) 72 01/10/2019 [facility] Temperature Oral (F) 97.6 F 01/10/2019 [facility] Heart Rate 81 01/10/2019 [facility] Respitory Rate 16 01/10/2019 [facility] Systolic (mm Hg) 138 01/10/2019 [facility] Diastolic (mm Hg) 81 01/10/2019 [facility] Height 182.88 cm 01/06/2019 [facility] Weight 90.955 01/06/2019 [facility] BMI Calculated 27.2 01/06/2019 [facility] Height 182.88 cm 01/06/2019 [facility] Weight 84.091 01/06/2019 [facility] BMI Calculated 25.14 01/06/2019 [facility] Height 182.88 cm 12/23/2018 [facility] Weight 85.8 12/23/2018 [facility] BMI Calculated 25.65 12/23/2018 [facility] Respitory Rate 11 10/30/2018 [facility] Systolic (mm Hg) 142 10/30/2018 [facility] Diastolic (mm Hg) 79 10/30/2018 [facility] Respitory Rate 11 10/30/2018 [facility] Systolic (mm Hg) 142 10/30/2018 [facility] Diastolic (mm Hg) 79 10/30/2018 [facility] Weight 81.818 10/30/2018 [facility] BMI Calculated 24.46 10/30/2018 [facility] Height 182.88 cm 10/30/2018 [facility] Height 182.88 cm 10/11/2018 [facility] Weight 85.455 10/11/2018 [facility] BMI Calculated 25.55 10/11/2018 [facility] Systolic (mm Hg) 162 10/11/2018 [facility] Diastolic (mm Hg) 84 10/11/2018 [facility] Heart Rate 82 10/11/2018 [facility] Encounters Location Location Details Encounter Type Encounter Number Reason For Visit Attending Provider ADM Date DC Date Status Source [facility] Neurosurgery [facility] Phone Message [id number] 10/01/2018 10/03/2018 [facility] [place] Out[facility] Diag Services [id number] 00 Susan Palvavernon 10/04/2018 10/05/2018 [facility] [place] Outpatient [id number] Mazin Peters 10/11/2018 Active [facility] MNA Neurosurgery [facility] Outpatient [id number] Mazin Peters 10/11/2018 10/12/2018 [facility] [place] Outpt Diag Services [id number] 01 Susan Healy 10/17/2018 10/18/2018 [facility] [place] [facility]NA Neurosurgery TM Phone Message [id number] 10/28/2018 10/30/2018 [facility] Neuro Outpatient [id number] Mazin Peters 10/30/2018 Active [facility] Bedded Outpatient [id number] Mazin Peters 10/30/2018 10/30/2018 [facility] MNA Neurosurgery TM Phone Message [id number] 11/01/2018 11/03/2018 [facility] Neuro Outpatient [id number] Mazin Peters 11/08/2018 Active [facility] MNA Neurosurgery [facility] Outpatient [id number] Mazin Peters 11/08/2018 11/09/2018 [facility] Neuro MNA Neurosurgery TM Phone Message [id number] 11/15/2018 [facility] TM Phone Message [id number] 11/18/2018 [facility]20[facility]2018 [facility] Outpatient Imaging [place] Outpt Diag Services [id number] 02 Honorio Funk 11/21/2018 11/22/2018 [facility] [place] MNA Neurosurgery TM Phone Message [id number] 11/27/2018 11/29/2018 [facility] [id number] Mazin Peters 01/06/2019 Active [facility] Inpatient [id number] Mazin Peters 01/06/2019 01/10/2019 [facility] Procedures Procedure Code Date Perfomer Comments Source Stent placement<sup>1</sup> 10 [id number] pt had a f ew spine surgstent Lashell Ivey,[facility], WANDA Jennings, [facility] [place] [id number] WANDA Jennings, [facility] [place] Laparoscopic repair of left inguinal her efrain using surgical mesh [id number] [facility] PCI - Percutaneous coronary intervention<sup>1</sup> [id number] x3 [facility] Procedure on back [id number] [facility] Stent placement<sup>2</sup> 10 [id number] pt had a f ew spine surgstent [facility] Tonsillectomy [id number] [facility] Assessment and Plan No Data Provided for [...] 1 or 2 every few days" 12/24/2018 [facility] nter Social History TypeResponse Alcohol Current, Type [...]
--- OUTSIDE RECORDS SUMMARY | 2019-11-23 20:34 | XMS REPORT | Continuity of Care Document ---
Author Author [facility] t Organization [facility] Address [address] [place] [address] Phone Unavailable Care Team Providers Care Development Eng Name Role Phone YUE RIOS R (DANYELLE) NILO PCP Khadar CARLISLE Attphys Unavailable Faisal Peters Attphys Honorio Funk Attphys Susan Healy Attphys Kristy HOFFMAN Attphys Unavailable Faisal Peters Admphys Payers Payer Name Policy Type Policy Number Effective Date Expiration Date Khadar Blancas [id number] 2014 00:00:00 NELDA Escudero - [facility] Problems Condition Name Condition Details Condition Category Status Onset Date Resolution Date Last Treatment Date Treating Clinician Comments Source I67.1 I67. 1 Active 11/19/2018 [facility] Diagnosis Active 2018-11-19 00:00:00 2019-01-15 22:18:00 Shoshana Jennings 4 VESSEL DIAGNOSTIC CEREBRAL ANGIOGRAM 4 VESSEL DIAGNOSTIC CEREBRAL ANGIOGRAM Active 10/11/2018 [facility] Diagnosis Active 2018-10-11 00:00:00 2018-10-30 06:28:00 Shoshana Jennings R42 - DIZZINESS AND GIDDINESS R42 - DIZZINESS AND GIDDINESS Active 09/20/2018 [facility] Diagnosis Active 2018-09-20 00:01:00 2018-10-17 07:53:00 Shoshana Jennings Degenerative lumbar spinal stenosis Degenerative Lumbar Spinal S tenosis Problem Active 2016-05-23 00:00:00 [facility] Chronic low back pain Chronic Low Back Pain Problem Active 201 09-30-22 00:00:00 [facility] Michele estevez Continuous opioid dependence Continuous Opioid Dependence Problem [...] Hospital Fever Fever Problem Active 2015-05-27 00:00:00 [facility] Leukocytosis Leukocytosis Problem Active 2015-05-27 00:00:00 [facility] Pneumonia Pneumonia Problem Active 2015-05-27 00:00:00 [facility] Idiopathic osteoarthritis Idiopathic Osteoarthritis Problem Ac tive [...] Knee Arthrop lasty Problem Active 2015-01-06 00:00:00 [facility] Long-term current use of drug therapy Long-term Current Use of Drug Therapy Problem Active 2015-01-06 00:00:00 [facility] Pain in left knee Pain in Left Knee Problem Active 2015-01-06 00:00:00 [facility] Acute coronary syndrome ACS (acute coronary syndrome) Problem Active 2014-12-31 00:00:00 [facility] Chest pain Chest pain Problem Active 2014-12-31 00:00:00 [facility] Backache (finding) Back ache (finding) Resolved Problem 01/12/2019 [facility], WANDA Jennings, WANDA Ghotra Problem Resolved 2019-01-12 21:41:04 Kong Jennings Insomnia Insomnia Problem Active 2015-01-06 00:00:00 2016-10-25 00:00:00 [facility] Allergies, Adverse Reactions, Alerts This patient has no known allergies or adverse reactions. Social History Social Habit Start Date Stop Date Quantity Comments Source Social History 2018-10-11 20:36:22 2018-10-11 20:36:22 Shoshana Jennings Smoking Status Start Date Stop Date Source Heavy Tobacco Smoker [facility] Medications Ordered Medication Name Filled Medication Name Start Date Stop Da te Current Medication? Ordering Clinician Indication Dosage Frequency Signature (SIG) Comments Components Source Acetaminophen 325 MG / Hydrocodone Bitartrate 5 MG Oral Tabl et [[place] 5/325] 2019-01-10 18:50:00 Yes 1 tab, PO, Q6H, PRN for pain, X 7 day, # 30 tab, 0 Refill(s) Shoshana Jennings Metformin hydrochloride 500 MG Oral Tablet 2019-01-10 14:39:00 No 500 mg, Route: PO, Drug form: TAB, BID, Dosing Weight 90.955, kg, Priority: NOW, Start date: 01/10/19 9:39:00 CDT, Duration: 30 day, Stop date: 02/09/19 9:00:00 SPORTS CLERK Shoshana Jennings Docusate Sodium 100 MG Oral Capsule [Colace] 2019-01-09 16:28:00 Yes 100 mg = 1 cap, PO, BID, # 28 cap, 0 Refill(s) Shoshana Jennings sennosides, FDC 8.6 MG Oral Tablet 2019-01-09 16:28:00 Yes [...] # 30 tab, 0 Refill(s) [facility] phenytoin 100 mg oral capsule, extended release 2019-01-09 16:28 :00 Yes 300 mg = 3 cap, PO, QPM, # 90 cap, 1 Refill(s) [facility] Melatonin 2019-01-08 07:13:00 No Notes: (Sa me as: Melatonin) [facility] heparin 2019-01-08 04:55:00 No Notes: porci ne heparin [facility] Aspirin 2019-01-07 14:00:00 No Notes: Take with food. [facility] Amlodipine 2019-01-07 14:00:00 No Notes: (S birgit as: Norvasc) [facility] Atenolol 100 MG Oral Tablet 2019-01-07 14:00:00 No Notes: (Same As:Tenormin) [facility] ferrous sulfate 2019-01-07 14:00:00 No Notes: Give with food. "Do Not Crush" [facility] Losartan 2019-01-07 14:00:00 No Notes: (Zay e as: Cozaar) [facility] Thyroxine 2019-01-07 11:30:00 No Notes: Take 1 hour before or 2 hours after meal; Enteral feeds may interefere with the absorption of this medication. (Same as:Synthroid, Levothroid) [facility] fosphenytoin 2019-01-07 09:33:00 No Notes: (Same as: Cerebyx) Stated mg = mgPE. Refrigerate ANTICONVULSANT Do not confuse with celebrex. For adult patients only: Round to nearest 50 mg per Medical Staff approval MEDICATION WASTE Product Size: 500 mg Product Wasted: ___ mg [facility] Hydromorphone 2019-01-07 09:32:00 No Notes: Same as Dilaudid [facility] Haldol 2019-01-07 09:15:00 No Notes: (Same as: Haldol) [facility] fosphenytoin 2019-01-07 06:17:00 No Notes: (Same as: [...] Duration: 30 day, Stop date: 02/05/19 21:51:00 SPORTS CLERK, 0 Shoshana Jennings Glucagon 2019-01-07 03:52:00 No 1 mg, Route: IM, Drug form: PDR/INJ, PRN, Dosing Weight 90.955, kg, PRN Blood Glucose Results, Start date: 01/06/19 22:52:00 CDT, Duration: 30 day, Stop date: 02/05/19 21:51:00 SPORTS CLERK, 0 Shoshana Jennings Insulin regular 2019-01-07 03:52:00 No Notes: (Same as: Humulin R) Roll in palms of hands gently; Do not shake vigorously. WASTE: F/P - Black; E - Roadhop Trash Bin Stable for 31 days at room temperature Expires in days from Date [facility] Potassium Chloride 2019-01-07 03:36:00 No Notes: (Same as: KCL) Infuse no faster than 10 mEq/hr if given peripherally. [facility] [place] sodium phosphate 2019-01-07 03:36:00 No Notes: Infuse [...] 1.47 mEq potassium Infuse over 4 hours [facility] potassium phosphate-sodium phosphate 250 mg-280 mg-160 mg oral powder for reconstitution 2019-01-07 03:36:00 No Notes: (Same as: Phos-NaK) Each 1.5 gm pkt has 250mg phosphorous. Mix w/2.5oz water and stir. [facility] Magnesium Sulfate 2019-01-07 03:36:00 No Notes: WASTE: F/P - Sink; E - Municipal Trash Bin [facility] Magnesium Oxide 2019-01-07 03:36:00 No Notes: (Same as: Mag-Ox 400) Magnesium oxide [id number] elemental magnesium Dose=____mg magnesium oxide (___mg elemental magnesium) [facility] Calcium Gluconate 2019-01-07 03:36:00 No Notes: WASTE: F/P - Sink; E - Municipal Trash [facility] Calcium Carbonate 500 MG Chewable Tablet 2019-01-07 03:36:00 No Notes: (Same As: Tums) Calcium Carbonate 500 mg = 200 mg elemental calcium Dose = mg calcium carbonate ( mg elemental calcium) [facility] Saline Flush 0.9% 2019-01-07 02:00:00 No Notes: (Same as: BD Posiflush) [facility] Pravastatin 2019-01-07 02:00:00 No Notes: ( Same as: Pravachol) [facility] ceFAZolin (SCIP) 2019-01-07 01:00:00 No Not es: (Same as Ancef) [facility] tramadol hydrochloride 50 MG Oral Tablet 2019-01-07 00:45:00 No Notes: Not to exceed 400mg/day. (Same As: Ultram) [facility] Dilantin 2019-01-06 23:28:00 No 300 mg, 3 cap, Route: PO, Drug form: ERCAP, QPM, Dosing Weight 84.091, kg, Priority: NOW, Start date: 01/06/19 18:28:00 CDT, Duration: 30 day, Stop date: 02/05/19 17:00:00 SPORTS CLERK, 0 [facility] Docusate 2019-01-06 22:00:00 No Notes: (Same as: Colace) (Do Not Crush) [facility] sennosides, FDC 2019-01-06 22:00:00 No Notes: (Same as: Senokot) [facility] Dilantin 2019-01-06 22:00:00 No Notes: (Same as: Dilantin) Do not open, crush, or chew. [facility] Cefazolin 2019-01-06 21:00:00 No Notes: (Sa me as Ancef) [facility] Insulin regular 2019-01-06 20:23:00 No 5 unit, Route: IV, ONCE, Dosing Weight 84.091, kg, Start date: 01/06/19 15:23:00 CDT, Stop date: 01/06/19 15:23:00 CDT [facility] sugammadex (ANES) 2019-01-06 20:15:00 No Route: IV, Drug form: SOLN, ONCE, Stop date: 01/06/19 15:15:00 CDT [facility] ondansetron (ANES) 2019-01-06 19:56:00 No Route: IV, Drug form: INJ, ONCE, Stop date: 01/06/19 14:56:00 CDT [facility] Hydralazine 2019-01-06 19:47:00 No 10 mg, Route: IVP, Q20Min, Dosing Weight 84.091, kg, PRN Elevated BP, Start date: 01/06/19 14:47:00 CDT, Duration: 2 doses or times, Stop date: Limited # of times [facility] Labetalol 2019-01-06 19:47:00 No 10 mg, Route: IVP, Q5Min, Dosing Weight 84.091, kg, PRN Elevated BP, Start date: 01/06/19 14:47:00 CDT, Duration: 5 doses or times, Stop date: Limited # of times [facility] Oxycodone Hydrochloride 5 MG Oral Tablet 2019-01-06 19:47:00 No 10 mg, Route: PO, Drug form: TAB, Q4H, Dosing Weight 84.091, kg, PRN Pain Score 7- 10, Start date: 01/06/19 14:47:00 CDT, Duration: 30 day, Stop date: 02/05/19 14:46:00 [facility] Oxycodone 2019-01-06 19:47:00 No 5 mg, Route: PO, Drug form: LIQ, Q4H, Dosing Weight 84.091, kg, PRN Pain Score 7-10, Start date: 01/06/19 14:47:00 CDT, Duration: 30 day, Stop date: 02/05/19 14:46:00 [facility] Hydromorphone 2019-01-06 19:47:00 No 0.5 mg, Route: IVP, Q5Min, Dosing Weight 84.091, kg, PRN Pain Score 7-10, Start date: 01/06/19 14:47:00 CDT, Duration: 4 doses or times, Stop date: Limited # of times [facility] Flumazenil 2019-01-06 19:47:00 No 0.2 mg, Route: IVP, PRN, Dosing Weight 84.091, kg, PRN Benzodiazepine Reversal, Initial dose, Start date: 01/06/19 14:47:00 CDT, Duration: 30 day, Stop date: 02/05/19 13:46:00 [facility] Naloxone 2019-01-06 19:47:00 No 0.4 mg, Route: IVP, Q2MIN, Dosing Weight 84.091, kg, PRN Narcotic Reversal, Start date: 01/06/19 14:47:00 CDT, Duration: 8 doses or times, Stop date: Limited # of times [facility] Ondansetron 2019-01-06 19:47:00 No 4 mg, Route: IVP, ONCE, Dosing Weight 84.091, kg, PRN Nausea & Vomiting, Start date: 01/06/19 14:47:00 CDT [facility] Sodium Chloride 0.9% IV 1,000 mL 2019-01-06 19:25:00 No 1,000 mL, Rate: 75 ml/hr, Infuse over: 13.3 hr, Route: IV, Dosing Weight 84.091 kg, Total Volume: 1,000, Start date: 01/06/19 14:25:00 CDT, Duration: 30 day, Stop date: 02/05/19 14:24:00 SPORTS CLERK, 2.08, m2, 0 [facility] Labetalol 2019-01-06 19:25:00 No 10 mg, 2 mL, Route: IVP, Drug form: INJ, Q15Min, Dosing Weight 84.091, kg, PRN Hypertension, Start date: 01/06/19 14:25:00 CDT, Duration: 30 day, Stop date: 02/05/19 13:24:00 SPORTS CLERK, 0 [facility] Hydralazine 2019-01-06 19:25:00 No Notes: (Same as: Apresoline) Push over 5 minutes [facility] Ondansetron 2019-01-06 19:25:00 No Notes: (Same as: Zofran) MEDICATION WASTE Product Size: 4 mg Product Wasted: ___ mg [facility] Acetaminophen 325 MG / Hydrocodone Bitartrate 10 MG Or al Tablet [[place] 10/325] 2019-01-06 19:25:00 No Note s: Do not exceed 4gm/day of acetaminophen. (Same as: [place] 325/10) [facility] Dilaudid 2019-01-06 19:25:00 No Notes: Same as Dilaudid [facility] Benadryl 2019-01-06 19:25:00 No Notes: (Zay e as: Benadryl) [facility] phenol 2019-01-06 19:25:00 No Notes: Chloraseptic Jakin (Same as: Chloraseptic, Sore Throat Jakin) WASTE: F/P - Black; E - Municipal Trash Bin [facility] Bisacodyl 2019-01-06 19:25:00 No Notes: (Same As: Dulcolax, Bisco-Lax) [facility] Robaxin 2019-01-06 19:25:00 No Notes: (Same as:Robaxin) [facility] Melatonin 3 MG Extended Release Tablet 2019-01-06 19:25:00 No Notes: (Same as: Melatonin) [facility] Tylenol 2019-01-06 19:25:00 No Notes: Do not exceed 4 gm/day. (Same as: Tylenol) [facility] Reglan 2019-01-06 19:25:00 No Notes: (Same as: Reglan) [facility] Phenergan 2019-01-06 19:25:00 No Notes: Do not give IV push. (Same as: Phenergan) [facility] Saline Flush 0.9% 2019-01-06 19:25:00 No Notes: (Same as: BD Posiflush) [facility] sugammadex 2019-01-06 19:05:00 No Notes: (S birgit as: Bridion) [facility] norepinephrine (ANES) 2019-01-06 18:55:00 No Route: IV, Drug form: INJ, ONCE, Stop date: 01/06/19 13:55:00 CDT [facility] vasopressin (ANES) 2019-01-06 18:45:00 No Route: IV, Drug form: INJ, ONCE, Stop date: 01/06/19 13:45:00 CDT anna marieriflex Jennings norepinephrine (ANES) 10 microgram 2019-01-06 18:40:00 No Route: IV, Drug form: INJ, Start date: 01/06/19 13:40:00 CDT, Stop date: 01/06/19 14:40:00 CDT [facility] phenylephrine (ANES) 2019-01-06 18:25:00 No Route: IV, Drug form: INJ, ONCE, Stop date: 01/06/19 13:25:00 CDT [facility] lidocaine (ANES) 2019-01-06 17:49:00 No Route: IV, Drug form: INJ, ONCE, Stop date: 01/06/19 12:49:00 [facility] propofol (ANES) 2019-01-06 17:49:00 No Route: IV, Drug form: INJ, ONCE, Stop date: 01/06/19 12:49:00 [facility] fentaNYL (ANES) 2019-01-06 17:49:00 No Route: IV, Drug form: INJ, ONCE, Stop date: 01/06/19 12:49:00 [facility] rocuronium (ANES) 2019-01-06 17:44:00 No Route: IV, Drug form: INJ, ONCE, Stop date: 01/06/19 12:44:00 CDT [facility] dexamethasone (ANES) 2019-01-06 17:44:00 No Route: IV, Drug form: INJ, ONCE, Stop date: 01/06/19 12:44:00 CDT [facility] ceFAZolin (ANES) 2019-01-06 17:38:00 No Route: IV, Drug form: INJ, ONCE, Stop date: 01/06/19 12:38:00 CDT [facility] fosphenytoin ([facility]) 1000 mg 2019-01-06 17:38:00 No Route: IV, Drug form: INJ, Start date: 01/06/19 12:38:00 CDT, Stop date: 01/06/19 13:38:00 CDT [facility] SUFentanil ([facility]) 50 microgram 2019-01-06 17:00:00 No Route: IV, Drug form: INJ, Start date: 01/06/19 12:00:00 CDT, Stop date: 01/06/19 13:00:00 CDT [facility] propofol ([facility]) 10 mg 2019-01-06 16:59:00 No Route: IV, Drug form: INJ, Start date: 01/06/19 11:59:00 CDT, Stop date: 01/06/19 12:59:00 CDT [facility] Sodium Chloride 0.9% IV (ANES) 1000 mL 2019-01-06 16:24:00 No Route: IV, Total Volume: 1,000, Start date: 01/06/19 11:24:00 CDT, Stop date: 01/06/19 12:24:00 CDT [facility] Lactated Ringers Injection IV (ANES) 1000 mL 2019-01-06 16:24:00 No Route: IV, Total Volume: 1,000, Start date: 01/06/19 11:24:00 CDT, Stop date: 01/06/19 12:24:00 CDT [facility] ceFAZolin 2019-01-06 10:00:00 No Notes: (Sa me as Ancef) [facility] Pravastatin 2018-12-24 16:54:00 Yes 40 mg, P O, Bedtime [facility] Acetaminophen 325 MG / Hydrocodone Bitartrate 10 MG Or al Tablet [[place] 10/325] 2018-12-24 16:54:00 No 1 tab, PO, PRN, 0 Refill(s) [facility] Naproxen 2018-12-24 16:54:00 No 500 mg, PO, PRN [facility] Flexeril 2018-12-24 16:54:00 Yes 10 mg, PO, PRN [facility] Omnipaque 300 2018-10-30 13:58:00 No 130 mL, Route: INTRAARTERIAL, Dosing Weight 81.818, kg, ONCE, Start date: 10/30/18 8:58:00 CDT, Stop date: 10/30/18 8:58:00 CDT [facility] Fentanyl 2018-10-30 13:16:00 No 50 microgram, Route: IV, ONCE, Dosing Weight 81.818, kg, Start date: 10/30/18 8:16:00 CDT, Stop date: 10/30/18 8:16:00 CDT [facility] Versed 2018-10-30 13:15:00 No 1 mg, Route: IV, ONCE, Dosing Weight 81.818, kg, Start date: 10/30/18 8:15:00 CDT, Stop date: 10/30/18 8:15:00 CDT [facility] ferrous sulfate 325 mg oral enteric coated tablet 2018-10-30 12:35:00 Yes 325 mg = 1 tab, PO, Daily, 0 Refill(s) [facility] Fish Oil 1000 mg oral capsule 2018-10-30 12:34:00 Yes 1,000 mg = 1 cap, PO, TID, 0 Refill(s) [facility] Asp[facility]in 325 MG Oral Tablet 2018-10-30 12:33:00 Yes 325 mg = 1 tab, PO, Daily, 0 Refill(s) [facility] omeprazole 20 mg oral enteric coated tablet 2018-10-30 12:33:00 Yes 20 mg = 1 tab, PO, Daily, 0 Refill(s) Ar angelica Jennings zolpidem 10 mg oral tablet 2018-10-30 12:33:00 Yes 10 mg = 1 tab, PO, Bedtime, 0 Refill(s) [facility] Addy n levothyroxine 75 mcg (0.075 mg) [...] tab, PO, Daily, 0 Refill(s) Shoshana Jennings Clopidogrel Bisulfate (Plavix) 75 Mg Tablet, 75 Mg Orkristy dye Clopidogrel Bisulfate (Plavix) 75 Mg Tablet, 75 Mg Oral 2015-01-01 00:00:00 2015-05-27 00:00:00 No Petrona 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 [employer]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 75 Daily [facility] Famotidine (Pepcid) 20 Mg Tablet, 20 Mg Oral Famotidin e (Pepcid) 20 Mg Tablet, 20 Mg Oral 2015-01-01 00:00:00 2015-05-27 00:00:00 No Petrona Ceron [employer] 20 Twice A Day [facility] Amlodipine Besylate 10 Mg Tablet Amlodipine Besylate 10 Mg Tablet Yes 10 Daily [facility] Aspirin (Aspirin Chew) 81 Mg Chew Aspirin (Aspirin Chew) 81 Mg Chew Yes 81 Daily [facility] Atenolol 100 Mg Tablet Atenolol 100 Mg Tablet Yes 150 Daily [facility] Levothyroxine Sodium 75 Mcg Tablet Levothyroxine Sodium 75 Mcg Tablet Yes 75 Daily [facility] Losartan Potassium 50 Mg Tablet Losartan Potassium 50 Mg Tablet Yes 50 Twice A Day [facility] Metformin Hcl 500 Mg Tablet Metformin Hcl 500 Mg Tablet Yes 500 Twice A Day [facility] Pravastatin Sodium 40 Mg Tablet Pravastatin Sodium 40 Mg Tablet Yes 40 Daily [facility] Zolpidem Tartrate 10 Mg Tablet Zolpidem Tartrate 10 Mg Tablet Yes 10 Bedtime [facility] amlodipine 10 mg tablet Take 1 tablet every day by ora l route for 90 days. amlodipine 10 mg tablet Take 1 tablet every day by oral route for 90 days. No 1 Q1D amlodipine 10 m g tablet Take 1 tablet every day by oral route for 90 days. [facility] ice atenolol 100 mg tablet Take 1 tablet every day by oral route for 90 days. atenolol 100 mg tablet Take 1 tablet every day by oral route for 90 days. No 1 Q1D atenolol 100 mg tablet Take 1 tablet every day by oral route for 90 days. [facility] ice celecoxib 200 mg capsule Take 1 capsule every day by o ral route for 90 days. celecoxib 200 mg capsule Take 1 capsule every day by oral route for 90 days. No 1capsule(s) Q1D celecoxib 200 mg capsule Take 1 capsule every day by oral route for 90 days. [facility] ice cyclobenzaprine 10 mg tablet cyclobenzaprine 10 mg tablet N o cyclobenzaprine 10 mg tablet [facility] gabapentin 300 mg capsule Take 1 capsule [...] mg tablet No meclizine 12.5 mg tablet [facility] ice metformin 500 mg tablet metformin 500 mg tablet No metformin 500 mg tablet [facility] ice naproxen 500 mg tablet naproxen 500 mg tablet No naproxen 500 mg tablet [facility] ice omeprazole 20 mg capsule,delayed release Take 1 capsule by oral route for 90 days. omeprazole 20 mg capsule,delayed release Take 1 capsule by oral route for 90 days. No 1capsule(s) omeprazole 20 mg capsule,delayed release Take 1 capsule by oral route for 90 days. [facility] pravastatin 80 mg tablet Take 1 tablet every day by or al route for 90 days. pravastatin 80 mg tablet Take 1 tablet every day by oral route for 90 days. No 1 Q1D pravastatin 80 mg tablet Take 1 tablet every day by oral route for 90 days. [facility] zolpidem 10 mg tablet Take 1 tablet [...] 4 mg tablets in a dose pack [facility] bupropion HCl XL 150 mg 24 hr tablet, extended release bupropion HCl XL 150 mg 24 hr tablet, extended release 2016-12-06 00:00:00 No bupropion HCl XL 150 mg 24 hr tablet, extended release [facility] dicyclomine 10 mg capsule Take 1 [...] Capsule., Omeprazole 20 Mg Capsule., 2015-01-01 00:00:00 [facility] Amiloride Hcl 5 Mg Tablet, Amiloride Hcl 5 Mg Tablet, 2014 00:00:00 [facility] Immunizations Ordered Immunization Name Filled Immunization Name Date Status Comments Source pneumococcal polysaccharide PPV23 pneumococcal polysaccharid e PPV23 2017-02-05 16:19:31 Completed [facility] ice influenza, high dose seasonal influenza, high dose seasonal 2016 16:19:00 Completed [facility] influenza, seasonal, injectable influenza, seasonal, injecta ble 2014-12-15 00:00:00 Completed [facility] ice influenza, seasonal, injectable influenza, seasonal, injecta ble 2014-01-07 00:00:00 Completed [facility] ice pneumococcal, unspecified formulation pneumococcal, unspecif ied formulation 2012-04-02 00:00:00 Completed [facility] ice Tdap Tdap 2007-04-02 00:00:00 Completed [facility] Vital Signs Vital Name Observation Time Observation Value Comments Source Temperature Oral (F) 2019-01-10 18:38:00 97.6 F [facility] Heart Rate 2019-01-10 18:38:00 [facility] Respitory Rate 2019-01-10 18:38:00 [facility] Systolic (mm Hg) 2019-01-10 18:38:00 Gigi [facility] Diastolic (mm Hg) 2019-01-10 18:38:00 [facility] [place] Temperature Oral (F) 2019-01-10 12:29:00 97.6 F [facility] Heart Rate 2019-01-10 12:29:00 [facility] Respitory Rate 2019-01-10 12:29:00 [facility] Systolic (mm Hg) 2019-01-10 12:29:00 Gigi rial [place] Diastolic (mm Hg) 2019-01-10 12:29:00 [facility] [place] Temperature Oral (F) 2019-01-10 09:23:00 97.6 F [facility] Heart Rate 2019-01-10 09:23:00 [facility] Respitory Rate 2019-01-10 09:23:00 [facility] Systolic (mm Hg) 2019-01-10 09:23:00 Gigi [facility] [place] Diastolic (mm Hg) 2019-01-10 09:23:00 [facility] Height 2019-01-06 22:54:00 182.88 cm [facility] Weight 2019-01-06 22:54:00 [facility] BMI Calculated 2019-01-06 22:54:00 [facility] Height 2019-01-06 15:17:00 182.88 cm [facility] Weight 2019-01-06 15:17:00 [facility] BMI Calculated 2019-01-06 15:17:00 [facility] Height 2018-12-23 17:09:00 182.88 cm [facility] Weight 2018-12-23 17:09:00 [facility] BMI Calculated 2018-12-23 17:09:00 [facility] Respitory Rate 2018-10-30 16:45:00 [facility] Systolic (mm Hg) 2018-10-30 16:45:00 Gigi [facility] Diastolic (mm Hg) 2018-10-30 16:45:00 [facility] Respitory Rate 2018-10-30 16:15:00 [facility] Systolic (mm Hg) 2018-10-30 16:15:00 [facility] Diastolic (mm Hg) 2018-10-30 16:15:00 [facility] Weight 2018-10-30 11:39:00 [facility] BMI Calculated 2018-10-30 11:39:00 [facility] Height 2018-10-30 11:39:00 182.88 cm [facility] Height 2018-10-11 18:48:00 182.88 cm [facility] Weight 2018-10-11 18:48:00 [facility] BMI Calculated 2018-10-11 18:48:00 [facility] Systolic (mm Hg) 2018-10-11 18:48:00 Gigi [facility] Dick Diastolic (mm Hg) 2018-10-11 18:48:00 [facility] Heart Rate 2018-10-11 18:48:00 [facility] BP [...] (Body Mass Index) 2016-04-24 00:00:00 26.3 kg/m2 [facility] BP Systolic 2016-04-24 00:00:00 134 mm[Hg] [facility] Body Weight 2016-04-24 00:00:00 183 [lb_av] [facility] BP Diastolic 2016-03-21 00:00:00 82 mm[Hg] [facility] Height 2016-03-21 00:00:00 70 [in_i] [facility] BMI (Body Mass Index) 2016-03-21 00:00:00 26.4 kg/m2 [facility] BP Systolic 2016-03-21 00:00:00 139 mm[Hg] [facility] Body Weight 2016-03-21 00:00:00 184 [lb_av] [facility] BP Diastolic 2016-02-21 00:00:00 80 mm[Hg] [facility] Height 2016-02-21 00:00:00 70 [in_i] [facility] BMI (Body Mass Index) 2016-02-21 00:00:00 26.1 kg/m2 [facility] BP Systolic 2016-02-21 00:00:00 140 mm[Hg] [facility] Body Weight 2016-02-21 00:00:00 182.2 [lb_av] [facility] BP Diastolic 2016-01-05 00:00:00 82 mm[Hg] [facility] Height 2016-01-05 00:00:00 70 [in_i] [facility] BMI (Body Mass Index) 2016-01-05 00:00:00 26.3 kg/m2 [facility] BP Systolic 2016-01-05 00:00:00 162 mm[Hg] [facility] Body Weight 2016-01-05 00:00:00 183.2 [lb_av] [facility] BP Diastolic 2015-09-16 00:00:00 76 [...] (Body Mass Index) 2014-01-06 00:00:00 26.69 kg/m2 [facility] BP Systolic 2014-01-06 00:00:00 130 [...] Practice Body Weight 2004-06-02 00:00:00 204 [lb_av] [facility] Procedures Procedure Date / Time Performed Performing Clinician [facility] e Computed tomography angiography of brain 2018-09-20 00:00:00 PIERCE JOHNSON [facility] MRI, lumbar spine, w/o contrast 2016-04-24 00:00:00 [facility] Knee Surgery [facility] Angioplasty [facility] Low Back Disk Surgery [facility] Tonsillectomy [facility] Hernia Repair [facility] Knee replacement Shoshana Daly n Laparoscopic repair of left inguinal hernia using surgical mesh [facility] - Percutaneous coronary intervention<sup>1</sup> [facility] Procedure on back Shoshana Patrick nn Stent placement<sup>2</sup> [facility] Tonsillect[facility] Plan of Care Planned Activity Planned Date Details Comments Source Instructions [facility] Instructions [facility] Instructions [facility] Instructions [facility] Encounters Start Date/Time End Date/Time Encounter Type Admission Type [facility] Care Department Encounter ID Source 2019-01-06 07:54:00 Inpatient [facility] [id number] [facility] 2019-01-06 07:54:00 2019-01-10 14:15:00 Outpatient Mazin Peters [facility] [id number] 2018-11-27 11:03:41 2018-11-28 23:59:59 Outpatient MHMIS TALIA [facility] [id number] 2018-11-21 13:57:00 2018-11-21 23:59:00 [facility] [id number] 2018-11-18 09:42:08 2018-11-19 23:59:59 Outpatient MHMIS TALIA [facility] [id number] 2018-11-15 09:47:03 2018-11-16 23:59:59 Outpatient MHMIS TALIA [facility] [id number] 2018-11-08 13:00:00 2018-11-08 23:59:59 Outpatient Tyler Peters [facility] [id number] 2018-11-01 09:11:05 2018-11-02 23:59:59 Outpatient MHMIS TALIA M[facility]IS[facility] [id number] 2018-10-30 06:18:00 2018-10-30 11:45:00 Outpatient Mazin Peters [facility] [id number] 2018-10-30 06:18:00 2018-10-30 06:18:00 Outpatient [facility] [id number] [facility] 2018-10-28 09:25:37 2018-10-29 23:59:59 Outpatient MHMIS TALIA MISCHER [id number] 2018-10-17 15:23:00 2018-10-17 23:59:00 Outpatient Susan Healy [facility] [id number] 2018-10-11 08:00:00 2018-10-11 23:59:59 Outpatient Tyler Peters [facility] M[facility] [id number] 2018-10-04 13:57:00 2018-10-04 23:59:00 Outpatient Susan Healy [facility] M[facility] [id number] 2018-10-01 14:14:30 2018-10-02 23:59:59 Outpatient MHMIS TALIA M[facility]ISCH[facility] [id number] 2018-09-20 18:42:00 2018-09-21 00:10:00 Departed Emergency Room 1 KRYSTA HOFFMAN [facility] [id number] [facility] 2017-07-04 00:00:00 2017-07-04 00:00:00 Nilo Chairez MD: [id number] [facility], [facility] [address] [address], Ph. [facility] [id number] [facility] 2017-05-21 00:00:00 2017-05-21 00:00:00 Cassaine Estrada: [address] [facility], [address] [address], Ph. [facility] - Care Management [id number] [facility] 2017-04-09 00:00:00 2017-04-09 00:00:00 Nilo Chairez MD: [id number] [facility], [address] [address], Ph. [facility] [id number] [facility] 2017-02-27 00:00:00 2017-02-27 00:00:00 Cassaine Estrada: [address] [facility], [facility] [address] [address], Ph. [facility] - Care Management [id number] [facility] 2017-02-05 00:00:00 2017-02-05 00:00:00 Nilo Chairez MD: [address], [address], [place] [address], Ph. [facility] [id number] [facility] 2017-01-02 00:00:00 2017-01-02 00:00:00 Cassaine Estrada: [address], [address], [place] [address], Ph. [facility] Practice - Care Management [id number] [facility] 2016-12-26 00:00:00 2016-12-26 00:00:00 Cassaine Estrada: [address], [address], [place] [address], Ph. [facility] - Care Management [id number] [facility] 2016-12-25 00:00:00 2016-12-25 00:00:00 Nilo Chairez MD: [address], [place] [address], Ph. [facility] [id number] [facility] 2016-12-06 00:00:00 2016-12-06 00:00:00 Nilo Chairez MD: [address], [address], [place] [address], Ph. [facility] [id number] [facility] 2016-10-25 00:00:00 2016-10-25 00:00:00 Nilo Chairez MD: [address], [address], [place] [address], Ph. [facility] [id number] [facility] 2016-10-09 00:00:00 2016-10-09 00:00:00 Cassaine Estrada: [address], [address], [place] [address], Ph. [facility] Practice - Care Management [id number] [facility] 2016-09-25 00:00:00 2016-09-25 00:00:00 Nilo Chairez MD: [id number] [facility], [address], [place] [address], Ph. [facility] [id number] [facility] Prac amparo 2016-09-01 00:00:00 2016-09-01 00:00:00 Cassaine Estrada: [address], [address], [place] [address], Ph. [facility] - Care Management [id number] [facility] Practice 2016-08-17 00:00:00 2016-08-17 00:00:00 Nilo Chairez MD: [address] [facility], [address], [place] [address], Ph. [facility] [id number] [facility] Prac amparo 2016-08-14 00:00:00 2016-08-14 00:00:00 Cassaine Estrada: [address], [address], [place] [address], Ph. [facility] - Care Management [id number] [facility] 2016-07-31 00:00:00 2016-07-31 00:00:00 Danna Chairez: [address], [address], [place] [address], Ph. [facility] - Care Management [id number] [facility] ice 2016-07-18 00:00:00 2016-07-18 00:00:00 Nilo Chairez MD: [address] [facility], [address], [place] [address], Ph. [facility] [id number] [facility] Prac amparo 2016-07-13 00:00:00 2016-07-13 00:00:00 Cassaine Estrada: [address], [address], [place] [address], Ph. [facility] - Care Management [id number] [facility] 2016-06-27 00:00:00 2016-06-27 00:00:00 Nilo Chairez MD: [address], [address], [place] [address], Ph. [facility] - [facility] Practice - [facility] [id number] [facility] 2016-06-21 00:00:00 2016-06-21 00:00:00 Nilo Chairez MD: [address], [place] [address], Ph. [facility] Practice - [facility] [id number] [facility] 2016-06-06 00:00:00 2016-06-06 00:00:00 Cassaine Estrada: [address], [address], [place] [address], Ph. [facility] - Care Management [id number] [facility] 2016-05-23 00:00:00 2016-05-23 00:00:00 Nilo Chairez MD: [address], [address], [place] [address], Ph. [facility] [id number] [facility] 2016-05-10 00:00:00 2016-05-10 00:00:00 Cassaine Estrada: [address], [address], [place] [address], Ph. [facility] Practice - Care Management [id number] [facility] Practice 2016-04-25 00:00:00 2016-04-25 00:00:00 Cassaine Estrada: [address], [address], [place] [address], Ph. [facility] Practice - Care Management [id number] [facility] Practice 2016-04-24 00:00:00 2016-04-24 00:00:00 Nilo Chairez MD: [address] [facility], [address] [place] [address], Ph. [facility] [id number] [facility] 2016-03-21 00:00:00 2016-03-21 00:00:00 Nilo Chairez MD: 28867 [facility], [address] [address], Ph. [facility] [id number] [facility] 2016-02-21 00:00:00 2016-02-21 00:00:00 Nilo Chairez MD: 477[address] [facility], [address] [address], Ph. [facility] [id number] [facility] 2016-01-05 00:00:00 2016-01-05 00:00:00 Nilo Chairez MD: [address] [facility], [address] [address], Ph. [facility] [id number] [facility] Results Test Description Test Time Test Comments Results Result Comments Source CHEST SINGLE (PORTABLE) 2019-11-23 19:25:00 [facility] [address] [place] [address] Patient Name: JIM RIVERA MR #: [id number] : 1945 Age/Sex: 74/M Req #: [id number] Adm Physician: Ordered by: PIERCE CARLISLE DO Report #: [id number] Location: Room/Bed: Procedure: [id number] DX/CHEST SINGLE (PORTABLE) Exam Date: 11/23/19 Exam Time: 1855 REPORT STATUS: Signed EXAMINATION: CHEST SINGLE (PORTABLE) INDICATION: Chest pain COMPARISON: None FINDINGS: TUBES and LINES: None. LUNGS: Hyperexpanded lungs. Subtle reticular opacities in the lung bases. No consolidations. PLEURA : No pleural effusion or pneumothorax. HEART AND MEDIASTINUM: The cardiomediastinal silhouette is unremarkable. There are atherosclerotic calcifications within the aorta. BONES AND SOFT TISSUES: No acute osseous lesion. Soft tissues are unremarkable. UPPER ABDOMEN: No free air under the diaphragm. IMPRESSION: Subtle reticular opacities in the lung bases are likely chronic scarring/fibrosis and atelectasis although an acute process is possible. Signed by: Simon Hilliard DO on 11/23/2019 7:27 PM Dictated By: SIMON HILLIARD DO 26 Transcribed By: WILLA on 11/23/191926 COPY TO: PIERCE CARLISLE DO CARDIAC ENZYMES 2019-01-09 14:37:00 0.03 [facility] Dick CHEM PANEL 2019-01-09 05:31:00 2.0 [facility] CHEM PANEL 2019-01-09 05:31:00 1.9 [facility] CHEM PANEL 2019-01-09 05:31:00 180 [facility] CHEM PANEL 2019-01-09 05:31:00 32 [facility] CHEM PANEL 2019-01-09 05:31:00 0.95 [facility] CHEM PANEL 2019-01-09 05:31:00 139 [facility] CHEM PANEL 2019-01-09 05:31:00 3.8 [facility] CHEM PANEL 2019-01-09 05:31:00 109 [facility] CHEM PANEL 2019-01-09 05:31:00 21 [facility] CHEM PANEL 2019-01-09 05:31:00 12.8 [facility] CHEM PANEL 2019-01-09 05:31:00 8.9 [facility] CHEM PANEL 2019-01-09 05:31:00 78 [facility] HEMATOLOGY 2019-01-09 05:31:00 75.6 [facility] HEMATOLOGY 2019-01-09 05:31:00 14.5 [facility] HEMATOLOGY 2019-01-09 05:31:00 7.8 [facility] HEMATOLOGY 2019-01-09 05:31:00 0.3 [facility] HEMATOLOGY 2019-01-09 05:31:00 1.8 [facility] HEMATOLOGY 2019-01-09 05:31:00 10.6 [facility] HEMATOLOGY 2019-01-09 05:31:00 2.0 [facility] HEMATOLOGY 2019-01-09 05:31:00 1.1 [facility] HEMATOLOGY 2019-01-09 05:31:00 0.3 [facility] HEMATOLOGY 2019-01-09 05:31:00 14.0 [facility] HEMATOLOGY 2019-01-09 05:31:00 4.05 [facility] HEMATOLOGY 2019-01-09 05:31:00 12.4 [facility] HEMATOLOGY 2019-01-09 05:31:00 37.4 Memor ial Dikc HEMATOLOGY 2019-01-09 05:31:00 92.3 [facility] HEMATOLOGY 2019-01-09 05:31:00 Test Item MCH (test code = MCH) 30.6 pg 27.0-31.0 [facility] JfklcbpJRLXXAEFQT0966-33-48 05:31:0033.2[facility]annHEMATOLOGY 2019-01-09 05:31:0014.4[facility] HwwnvmxZWRHNVNJYZ1964-84-15 05:31:63323Bqeraeuh WghwdgxOCNPLVUAIQ7198-91-20 05:31:007.4[facility] HermannPARATHYROID PROFILE 2019-01-09 05:31:001.19[facility] HermannPARATHYROID FJYZTPC7646-20-86 05:31:00 1.19[facility] HermannCHEM ETQAZ2415-02-87 06:58:002.1[facility] HermannCHEM PANEL 2019-01-08 06:58:002.2[facility] AmancqlKVLVJQNKETPR1368-82-10 06:58:0013.5 Memorial RdqokqaXIOUPMEVXXMD9740-27-18 06:58:92256Sauahrno HermannELECTROLYTES 2019-01-08 06:58:0015[facility] OtjktvoUBUZFFLLKKIW8531-01-34 06:58:000.80[facility] HqjocdkIBKTJKUDNDYK9315-02-78 06:58:33539Huzdancs AkitnsoNAJVJYDEMKZP9760-47-92 06:58:003.5[facility] MvfghynFUMCPZLKDPWX7690-21-62 06:58:92328Imrzufxi Dick VHRUKNHYGVRW9493-59-18 06:58:0021[facility] PomtmshCGSXTWRNBUKI0626-71-27 06:58:00 8.7[facility] XnuclnzNUKYWNMZOUFH1721-02-69 06:58:0088[facility] HermannHEMATOLOGY 2019-01-08 06:58:0018.2[facility] YaacgemRTNGEKVVQS6668-32-63 06:58:004.34[facility] DzpesmtEIBXVIBKCT3656-51-26 06:58:0013.0[facility] EhpaomzUGGBYYGBZS5398-78-48 06:58:0040.0[facility] IszyrnkWMBLKCRQII1241-69-39 06:58:0092.1[facility] ITLRSUUFKS2647-08-45 06:58:00* Test Item Value Reference Range Interpretation Comments MCH (test code = MCH) 29.9 pg 27.0-31.0 [facility] TcqvdhcJXITDPDJSC8108-21-00 06:58:0032.5[facility] HermannHEMATOLOGY 2019-01-08 06:58:0014.5[facility] HtclkknSBVPCQAQOG3719-05-51 06:58:25159Bfavsnxy HezplwlPNTVEQNELV3887-37-46 06:58:007.4[facility] OlbfazuUCSPRLUJTG7208-57-63 06:58:0076.1[facility] SwoocamUNJBCMQFDO0852-07-25 06:58:0014.8[facility] PILERKZIAF5076-10-59 06:58:008.1[facility] RgaslqgRZTQQJMFNE1672-73-84 06:58:000.1 [facility] TfpgremCEAESSHKWS3530-32-65 06:58:000.9[facility] HermannHEMATOLOGY 2019-01-08 06:58:0013.8[facility] ZolzlnyZHFRUSNASJ2515-67-66 06:58:002.7[facility] GfifoimJHNWOIHCGR1620-86-97 06:58:001.5[facility] EmqdlbmEHRUOUXPRG8312-15-40 06:58:000.2[facility] HermannPARATHYROID UCTCJCD7998-09-89 06:58:001.07[facility] HermannPARATHYROID MEPRHYK4638-21-27 06:58:001.09[facility] HermannCHEM PANEL 2019-01-07 13:27:006.5[facility] HermannCHEM MEEQO3625-76-54 13:27:003.6[facility] HermannCHEM ATDVG0448-55-06 13:27:0033[facility] HermannCHEM MQTUT6105-92-33 13:27:0023[facility] HermannCHEM RXHZB1460-66-71 13:27:0057[facility] HermannCHEM QXVWH5471-69-30 13:27:000.8[facility] HermannCHEM UKSQS5147-68-10 13:27:000.2 [facility] HermannCHEM ZXCAJ8704-38-05 13:27:000.6[facility] HermannCHEM PANEL 2019-01-07 13:27:002.9[facility] HermannCHEM DYHGL2215-05-70 13:27:00* Test Item Value Reference Range Interpretation Comments A/G Ratio (test code = A/G Ratio) 1.2 1 0.7-1.6 [facility] GuthdqpLBSYAGILQK3448-02-56 13:27:001.15[facility] HermannCARDIAC ENZYMES 2019-01-07 06:35:00<0.02[facility] HermannCHEM USBUC8150-77-70 06:35:006.6[facility] HermannCHEM FVYHA6477-10-60 06:35:003.7[facility] HermannCHEM DABVR6225-85-38 06:35:0035[facility] HermannCHEM OIMOF5021-91-57 06:35:0024[facility] HermannCHEM CSMKQ4744-87-64 06:35:0061[facility] HermannCHEM UVBSV8391-85-13 06:35:000.9 [facility] HermannCHEM YEEYM4783-61-34 06:35:000.3[facility] HermannCHEM PANEL 2019-01-07 06:35:000.6[facility] HermannCHEM OUXKE5142-66-65 06:35:002.9[facility] HermannCHEM XWLUQ7737-47-05 06:35:00* Test Item Value Reference Range Interpretation Comments A/G Ratio (test code = A/G Ratio) 1.3 1 0.7-1.6 Memorial LcmkzeyYXJYIKFFST6432-38-62 06:35:0011.1[facility] HermannTOXICOLOGY 2019-01-07 06:35:000.90[facility] HermannCHEM NCALI4577-42-66 05:05:61083Yyytitaq HermannCHEM GGTSA3624-92-12 05:05:0015[facility] HermannCHEM CAGLR3705-94-96 05:05:001.01[facility] HermannCHEM ZHHMG9134-63-85 05:05:97997Tyfxgzla HermannCHEM OFORR2515-37-06 05:05:004.1[facility] HermannCHEM DLODC6212-57-82 05:05:70639 [facility] HermannCHEM CBGRO3687-64-27 05:05:0018[facility] HermannCHEM PANEL 2019-01-07 05:05:008.1[facility] HermannCHEM AXBZK5781-16-70 05:05:0072[facility] HermannCHEM MAYTQ8599-59-17 05:05:0020.1[facility] HermannCHEM AXATC5137-67-93 05:05:001.8[facility] HermannCHEM PJJQP9371-45-61 05:05:001.9[facility] VYNONRZBVC4946-49-02 05:05:008.5[facility]orial QstqvwlGYSMKBDUDI7927-45-73 05:05:00 4.33[facility] WqyfojoKGRSDBGHHH5672-42-23 05:05:0013.4[facility] HermannHEMATOLOGY 2019-01-07 05:05:0040.2[facility] DkopjfbQOBHPQZAFF8282-46-90 05:05:0092.9[facility] AoboefqZAOECUGDAR2260-22-56 05:05:00* Test Item Value Reference Range Interpretation Comments MCH (test code = MCH) 30.9 pg 27.0-31.0 [facility] OdculthDOVAGQXFVT2022-13-13 05:05:0033.3[facility] HermannHEMATOLOGY 2019-01-07 05:05:0014.4[facility] EsxrfegMHZWKYPBIZ6389-92-00 05:05:05441Zmlgxqkz YkyasanYVCUPTWICH9412-29-33 05:05:007.3[facility] RrxtfgbCGKEDMXNED4053-49-83 05:05:0095.2[facility] BuzuqajNTCBZUSJHX2551-63-08 05:05:002.0[facility] Dick FRFANQFVIK3655-74-25 05:05:002.8[facility] NjxthewOYTGEUTWLK7077-54-21 05:05:008.1 [facility] KabuoodKYHENJOTCY7396-42-32 05:05:000.2[facility] HermannHEMATOLOGY 2019-01-07 05:05:000.2[facility] HermannPARATHYROID NEHWZQK5608-47-58 05:05:001.06 [facility] HermannPARATHYROID RDWMXJX3847-64-28 05:05:001.03[facility] Dick BACTERIAL - IZGSRAFU2210-93-74 04:26:00Negative (01/06/19 11:26 PM)[facility] LoiufqiITPXCYEWUM3118-26-28 20:04:00* Test Item Value Reference Range Interpretation Comments PT (test code = PT) 14.4 s 12.0-14.7 [facility] SdmgebcRCRMECNSGE0409-41-45 20:04:00* Test Item Value Reference Range Interpretation Comments PTT (test code = PTT) 28.3 s 22.9-35.8 [facility] XnndoqzCEDWAQNRWZ9219-39-90 20:04:00* Test Item Value Reference Range Interpretation Comments INR (test code = INR) 1.14 1 0.85-1.17 [facility] ZcpdahfDFSOOGJHHM3513-73-61 20:04:00Normal (01/06/19 3:04 PM)[facility] TieinuwIDNAGIGNLG3641-71-44 20:04:00Normal (01/06/19 3:04 PM)[facility] XKKYISGTTP2321-42-07 20:04:000.3[facility] CjupmvkXEAWQLLLPC0840-35-80 20:04:000.5 [facility] PfhpkwtODMCGDARQD7925-27-29 20:04:000.1[facility] HermannHEMATOLOGY 2019-01-06 20:04:000.1[facility] HermannBLOOD BANK SOLKAFL4243-86-25 14:55:00 Negative (01/06/19 9:55 AM)[facility] HermannCHEM XDKRP5819-53-20 17:13:00* Test Item Value Reference Range Interpretation Comments B/C Ratio (test code = B/C Ratio) 19 1 6-25 [facility] HermannCHEM EOTHS7327-26-37 17:13:003.1[facility] HermannCHEM PANEL 2018-12-23 17:13:00* Test Item Value Reference Range Interpretation Comments A/G Ratio (test code = A/G Ratio) 1.3 1 0.7-1.6 [facility] QGJAZ9943-97-91 17:13:007.2[facility] HermannCHEM PANEL 2018-12-23 17:13:004.1[facility] HermannCHEM FZSLN4352-43-95 17:13:0041[facility] HermannCHEM QJWLM3596-23-34 17:13:0024[facility] HermannCHEM LDQIQ0674-02-22 17:13:0086[facility] HermannCHEM CYILX9220-27-03 17:13:000.7[facility] BAUEDYFIKO0377-45-19 17:13:00* Test Item Value Reference Range Interpretation Comments PT (test code = PT) 12.5 s 12.0-14.7 [facility] HospitalQtziltbANVVKVDDRO5258-42-02 17:13:00* Test Item Value Reference Range Interpretation Comments PTT (test code = PTT) 30.8 s 22.9-35.8 [facility] HospitalSutvfeoQWXWOZFAUD1357-72-67 17:13:00* Test Item Value Reference Range Interpretation Comments INR (test code = INR) 0.95 1 0.85-1.17 [facility] HospitalJvbxvroKJUYZPRCGW3820-08-52 17:13:00* Test Item Value Reference Range Interpretation Comments R-time (test code = R-time) 5.5 min 5.0-10.0 [facility] HospitalQdifhywCUYRTVBUVT6662-69-44 17:13:00* Test Item Value Reference Range Interpretation Comments K-time (test code = K-time) 1.8 min 1.0-3.0 [facility] HospitalNipehmvKMBUKAJSLQ3762-82-51 17:13:00* Test Item Value Reference Range Interpretation Comments Angle (test code = Angle) 64.2 degrees 53.0-72.0 [facility] HospitalKhnezrmSOMLIABRML3034-71-91 17:13:00* Test Item Value Reference Range Interpretation Comments Max Amp (test code = Max Amp) 64.2 mm 50.0-70.0 [facility] HospitalUajgggcUIKNMPPWQE8058-37-98 17:13:009.0[facility] HermannHEMATOLOGY 2018-12-23 17:13:000.2[facility] TgyivrpSYOMHTATDY6104-49-86 17:13:00* Test Item Value Reference Range Interpretation Comments Coag Index (test code = Coag Index) 0.7 1 <=3.0 [facility] HospitalOuafoayHSZDYPPXIJ1215-06-10 17:13:00See Note (12/23/18 12:13 PM)[facility] HospitalGbgghumMXBRBNVHFC7601-40-37 17:13:88060Sjdwxsol ZwihakgZEKLQJKMNR8674-50-04 17:13:000.2[facility] HermannCTA EKVWT5503-43-62 22:31:00 [place] [address] Patient Name: JIM RIVERA MR #: [id number] : 1945 Age/Sex: 73/M Req #: [id number] Adm Physician: Ordered by: PIERCE CALERO MD Report #: [id number] Location: Room/Bed: Procedure: [id number] CT/CTA B RAIN Exam Date: Exam Time: [...] density. No acute hemorrhage, mass or ac bushra major vascular territorial infarct. Arteries: No density [...] 2300 COPY TO: PIERCE CALERO MD Sodium Gkusb7739-58-43 21:49:00* Test Item Value Reference Range Interpretation Comments Sodium Level (test code = 2951-2) 135 136-145 L [facility]Pot[facility] Mqoan3952-90-70 21:49:00* Test Item Value Reference Range Interpretation Comments Potassium Level (test code = 2823-3) 3.5 3.5-5.1 [facility] MarshallChloride Cedcg2277-64-16 21:49:00* Test Item Value Reference Range Interpretation Comments Chloride Level (test code = 2075-0) 101 98-107 [facility] MarshallCar[facility] Dioxide Jjfyj2190-65-68 21:49:00* Test Item Value Reference Range Interpretation Comments Carbon Dioxide Level (test code = 2028-9) 24 22-29 [facility] MarshallAnion Knh5878-86-70 21:49:00* Test Item Value Reference Range Interpretation Comments Anion Gap (test code = 35906-8) 13.5 8-16 [facility] Marshall[facility] Urea Vyzlfcet6458-96-67 21:49:00* Test Item Value Reference Range Interpretation Comments Blood Urea Nitrogen (test code = 3094-0) 16 7-26 [facility] MarshallCreatinine2019-06-21 21:49:00* Test Item Value Reference Range Interpretation Comments Creatinine (test code = 2160-0) 1.06 0.72-1.25 [facility] MarshallBUN/Creatinine [id number] 21:49:00* Test Item Value Reference Range Interpretation Comments BUN/Creatinine Ratio (test code = 3097-3) 15 6-25 [facility] MarshallEstimat Glomerular Filtration Rate 2018-09-20 21:49:00* Test Item Value Reference Range Interpretation Comments Estimat Glomerular Filtration Rate (test code = 848384383) > 60 >60 Ranges were taken from the National Kidney Disease Education Program and the [facility] literature.Reference ranges:60 or greater: Xxoapu70-50 ( for 3 consecutive months): Chronic kidney disease 15 or less: Kidney failureCH[facility] – MarshallGlucose Vdpqw1177-68-86 21:49:00* Test Item Value Reference Range Interpretation Comments Glucose Level (test code = TWD5797) 104 74-118 [facility] MarshallCalcium Jjcei9977-89-59 21:49:00* Test Item Value Reference Range Interpretation Comments Calcium Level (test code = 65730-4) 8.9 8.4-10.2 [facility] MarshallTotal Sswgrgqul9296-79-30 21:49:00* Test Item Value Reference Range Interpretation Comments Total Bilirubin (test code = 1975-2) 0.8 0.2-1.2 [facility] MarshallAspartate Amino Transf (AST/SGOT) 2018-09-20 21:49:00* Test Item Value Reference Range Interpretation Comments Aspartate Amino Transf (AST/SGOT) (test code = Aspartate Amino Transf (AST/SGOT)) 22 5-34 [facility] MarshallAlanine Aminotransferase (ALT/SGPT) 2018-09-20 21:49:00* Test Item Value Reference Range Interpretation Comments Alanine Aminotransferase (ALT/SGPT) (test code = 1742-6) 31 0-55 [facility] MarshallTotal Wcvkgrp2658-53-80 21:49:00* Test Item Value Reference Range Interpretation Comments Total Protein (test code = 2885-2) 6.7 6.5-8.1 [facility] MarshallAlbumin2019-06-21 21:49:00* Test Item Value Reference Range Interpretation Comments Albumin (test code = 1751-7) 3.7 3.5-5.0 [facility] MarshallGlobulin2019-06-21 21:49:00* Test Item Value Reference Range Interpretation Comments Globulin (test code = 72659-4) 3.0 2.3-3.5 [facility] MarshallAlbumin/Globulin Bpitd0785-85-31 21:49:00 * Test Item Value Reference Range Interpretation Comments Albumin/Globulin Ratio (test code = 1759-0) 1.2 0.8-2.0 [facility] MarshallAlkaline Uzishvoppwt6023-29-88 21:49:00* Test Item Value Reference Range Interpretation Comments Alkaline Phosphatase (test code = 6768-6) 95 40-150 [facility] MarshallCreatine Fqxgyu3717-98-90 21:49:00* Test Item Value Reference Range Interpretation Comments Creatine Kinase (test code = 2157-6) 134 30-200 [facility] MarshallCreatine Kinase [id number] 21:49:00* Test Item Value Reference Range Interpretation Comments Creatine Kinase MB (test code = 57489-6) 4.20 0-5.0 [facility] MarshallTroponin [id number] 21:49:00* Test Item Value Reference Range Interpretation Comments Troponin I (test code = YMO9397) 0.014 0-0.300 [facility] MarshallWhite Blood Eqdmd6326-03-03 20:31:00* Test Item Value Reference Range Interpretation Comments White Blood Count (test code = 6690-2) 8.53 4.8-10.8 [facility] MarshallRed Blood Ydzsn2924-61-21 20:31:00* Test Item Value Reference Range Interpretation Comments Red Blood Count (test code = 789-8) 4.54 4.3-5.7 [facility] MarshallHemoglobin2019-06-21 20:31:00* Test Item Value Reference Range Interpretation Comments Hemoglobin (test code = 71614-4) 14.1 14.0-18.0 [facility] MarshallHematocrit2019-06-21 20:31:00* Test Item Value Reference Range Interpretation Comments Hematocrit (test code = 4544-3) 41.6 38.2-49.6 [facility] MarshallMean Corpuscular [id number] 20:31:00* Test Item Value Reference Range Interpretation Comments Mean Corpuscular Volume (test code = 787-2) 91.6 81-99 [facility] MarshallMean Corpuscular Duoylculdv4602-20-48 20:31:00* Test Item Value Reference Range Interpretation Comments Mean Corpuscular Hemoglobin (test code = 785-6) 31.1 28-32 [facility] MarshallMean Corpuscular Hemoglobin Concent 2018-09-20 20:31:00* Test Item Value Reference Range Interpretation Comments Mean Corpuscular Hemoglobin Concent (test code = 786-4) 33.9 31-35 [facility] MarshallRed Cell Distribution Ojhfb9960-07-13 20:31:00* Test Item Value Reference Range Interpretation Comments Red Cell Distribution Width (test code = 03038-6) 14.1 11.7 -14.4 [facility] MarshallPlatelet Ofdlw5302-92-44 20:31:00* Test Item Value Reference Range Interpretation Comments Platelet Count (test code = 777-3) 283 140-360 [facility] MarshallNeutrophils (%) (Auto)2018-09-20 20:31:00 * Test Item Value Reference Range Interpretation Comments Neutrophils (%) (Auto) (test code = 12325-8) 67.3 38.7-80.0 [facility] MarshallLymphocytes (%) (Auto)2018-09-20 20:31:00 * Test Item Value Reference Range Interpretation Comments Lymphocytes (%) (Auto) (test code = 736-9) 19.8 18.0-39.1 [facility] MarshallMonocytes (%) (Auto)2018-09-20 20:31:00* Test Item Value Reference Range Interpretation Comments Monocytes (%) (Auto) (test code = 5905-5) 7.5 4.4-11.3 [facility] MarshallEosinophils (%) (Auto)2018-09-20 20:31:00 * Test Item Value Reference Range Interpretation Comments Eosinophils (%) (Auto) (test code = 713-8) 4.6 0.0-6.0 [facility] MarshallBasophils (%) (Auto)2018-09-20 20:31:00* Test Item Value Reference Range Interpretation Comments Basophils (%) (Auto) (test code = 706-2) 0.6 0.0-1.0 [facility] MarshallIM GRANULOCYTES %2018-09-20 20:31:00* Test Item Value Reference Range Interpretation Comments IM GRANULOCYTES % (test code = IM GRANULOCYTES %) 0.2 0.0- 1.0 [facility] MarshallNeutrophils # (Auto)2018-09-20 20:31:00* Test Item Value Reference Range Interpretation Comments Neutrophils # (Auto) (test code = 751-8) 5.7 2.1-6.9 [facility] MarshallLymphocytes # (Auto)2018-09-20 20:31:00* Test Item Value Reference Range Interpretation Comments Lymphocytes # (Auto) (test code = 03052-1) 1.7 1.0-3.2 [facility] MarshallMonocytes # (Auto)2018-09-20 20:31:00* Test Item Value Reference Range Interpretation Comments Monocytes # (Auto) (test code = 742-7) 0.6 0.2-0.8 [facility] MarshallEosinophils # (Auto)2018-09-20 20:31:00* Test Item Value Reference Range Interpretation Comments Eosinophils # (Auto) (test code = 711-2) 0.4 0.0-0.4 [facility] MarshallBasophils # (Auto)2018-09-20 20:31:00* Test Item Value Reference Range Interpretation Comments Basophils # (Auto) (test code = 704-7) 0.1 0.0-0.1 [facility] MarshallAbsolute Immature Granulocyte (auto 2018-09-20 20:31:00* Test Item Value Reference Range Interpretation Comments Absolute Immature Granulocyte (auto (jamal t code = Absolute Immature Granulocyte (auto) 0.02 0-0.1 [facility] MarshallComprehensive metabolic 2000 panel - Serum or Ajtydn7605-48-65 10:46:00* Test Item Value Reference Range Interpretation Comments glucose (test code = glucose) 90 mg/dL 65-99 urea nitrogen (BUN) (test code = urea nitrogen (BUN)) 21 mg/dL 7-25 creatinine (test code = creatinine) 1.00 mg/dL 0.70-1.18 eGFR non-afr. dutch (test code = eGFR non-afr. dutch) 74 mL/min/1.73m2 > or = 60 eGFR [...] [facility] HospitalThyroxine (T4) [Mass/volume] in Serum or Eixcov3657-84-09 10:46:00* Test Item Value Reference Range Interpretation Comments T4 (thyroxine), total (test code = T4 (thyroxine), total) 10.5 m cg/dL 4.5-12.0 [facility] HospitalThyrotropin [Units/volume] in Serum or Zicaii4137-24-25 10:46:00* Test Item Value Reference Range Interpretation Comments TSH (test code = TSH) 2.45 mIU/L 0.40-4.50 [facility] HospitalCBC W Auto Differential panel - Whjxn6432-41-26 10:46:00 * Test Item Value Reference Range [...] code = absolute neutrophils) 4888 arabella ls/uL 5555-0770 absolute lymphocytes (test code = absolute lymphocytes) [...] [facility] HospitalHemoglobin A1c/Hemoglobin.total in Hhhbq7789-83-83 10:46:00* Test Item Value Reference Range Interpretation Comments hemoglobin A1C (test code = hemoglobin A1C) 5.9 % of total HGB <5.7 H EAG (mg/dL) (test code = EAG (mg/dL)) 123 (calc) EAG (mmol/L) (test code = EAG (mmol/L)) 6.8 (calc) [facility] HospitalTestosterone [Mass/volume] in Serum or Cnupkp1382-54-19 10:46:00* Test Item Value Reference Range Interpretation Comments testosterone, total, males (adult), ia ( test code = testosterone, total, males (adult), ia) 268 NG/dL 250-827 [facility] HospitalCholesterol in LDL [Mass/volume] in Serum or Plasma 2015-09-16 00:00:00* Test Item Value Reference Range Interpretation Comments LDL (test code = LDL) 57 [facility] HospitalHemoglobin A1c/Hemoglobin.total in Ejhoh9389-73-22 00:00:00* Test Item Value Reference Range Interpretation Comments A1C (test code = A1C) 6.0 [facility]CHE[facility] [place] [address] Patient Name: JIM RIVERA MR #: [id number] : 1945 Age/Sex: 71/M Req #: [id number] Adm Physician: Ordered by: KRYSTA HOFFMAN MD Report #: [id number] Location: ER Room/Bed: _ Procedure: [id number] DX/CHEST 2 VIEWS Exam Date: 12/09/16 Exam [...] TO: KRYSTA HOFFMAN MD CT BRAIN WO [place] [address] Patient Name: JIM RIVERA MR #: [id number] : 1945 Age/Sex: 71/M Req #: [id number] Adm Physician: Ordered by: KRYSTA HOFFMAN MD Report #: [id number] Location: ER Room/Bed: _ Procedure: [id number] CT/CT BRAIN WO Exam Date: 12/09/16 Exam [...] M.D. on 12/09/2016 8:33 PM Dictated By: REIN VALENTINO MD 32 Transcribe d By: WILLA on 12/09/162032 COPY TO: KRYSTA HOFFMAN MD
--- NOTE | 2019-11-23 20:55 | Emergency Department Note ---
History of Present Illnes History of Present Illness Chief Complaint: Chest Pain History of Present Illness This is a 74 year old male arrives to the ED with complaints of chest pain that began 2 hours prior to arrival. Patient has a history of stent placement, is a diabetic hypertensive and has high cholesterol. Patient describes the pain as pressure-like in his epigastric region associated with indigestion. Historian: Patient Arrival Mode: Car Additional Treatment [facility] NONE Onset (how long ago): hour(s) Severity: moderate Onset quality: sudden Duration (how long): hour(s) Timing of current episode: constant Progression: unchanged Chronicity: recurrent Past Medical/Family History Physician Review I have reviewed the patient's past medical and family history. Any updates have been documented here. Past Medical History Recent Fever: No Clinical Suspicion of Infectio: No New/Unexplained Change in Ment: No Past Medical History: Hypertension, Diabetes, GERD Other Medical History: GERD Past Surgical History: Back Surgery Other Surgery: Tonsilectomy 3 Knee surgeries with knee replacements 3-4 cardiac stents placed Hernia repair Back surgery Social History Smoking Cessation: Never Smoker Counseling Performed: No Alcohol Use: None Any Illegal Drug Use: No Physically hurt or threatened: No Other Last Tetanus: Not up to date Any Pre-Existing Lines (PICC,: No Review of Systems Review of Systems Constitutional: Reports no symptoms EENTM: Reports no symptoms Cardiovascular: Reports no symptoms, Reports as per HPI, Reports chest pain Respiratory: Reports no symptoms Gastrointestinal: Reports no symptoms Genitourinary: Reports no symptoms Musculoskeletal: Reports no symptoms Integumentary: Reports no symptoms Neurological: Reports no symptoms Psychological: Reports no symptoms Endocrine: Reports no symptoms Hematological/Lymphatic: Reports no symptoms Physical Exam Related Data Allergies: Coded Allergies: No Known Allergies (Unverified , 12/30/14) Triage Vital Signs Vital Signs Date Time Temp Pulse Resp B/P (MAP) Pulse Ox O2 Delivery O2 Flow Rate FiO2 11/23/19 18:36 98.5 86 18 169/75 100 Room Air 11/23/19 20:15 2.0 Vital signs reviewed: Yes (.) Physical Exam CONSTITUTIONAL Constitutional: Present well-developed, Present well-nourished HENT HENT: Present normocephalic, Present atraumatic, Present oropharynx clear/moist, Present nose normal HENT L/R: Present left ext ear normal, Present right ext ear normal EYES Eyes: Reports PERRL, Reports conjunctivae normal NECK Neck: Present ROM normal PULMONARY Pulmonary: Present effort normal, Present breath sounds normal CARDIOVASCULAR Cardiovascular: Present regular rhythm, Present heart sounds normal, Present capillary refill normal, Present normal rate GASTROINTESTINAL Abdominal: Present soft, Present nontender, Present bowel sounds normal GENITOURINARY Genitourinary: Present exam deferred SKIN Skin: Present warm, Present dry MUSCULOSKELETAL Musculoskeletal: Present ROM normal NEUROLOGICAL Neurological: Present alert, Present oriented x 3, Present no gross motor or sensory deficits PSYCHOLOGICAL Psychological: Present mood/affect normal, Present judgement normal Results Laboratory Result Diagram: 11/23/19190711/23/191907 Laboratory Laboratory Tests Test 11/23/19 19:45 11/23/19 19:08 White Blood Count 10.56 x10e3/uL (4.8-10.8) Red Blood Count 5.23 x10e6/uL (4.3-5.7) Hemoglobin 14.5 g/dL (14.0-18.0) Hematocrit 45.8 % (38.2-49.6) Mean Corpuscular Volume 87.6 fL (81-99) Mean Corpuscular Hemoglobin 27.7 pg (28-32) Mean Corpuscular Hemoglobin Concent 31.7 g/dL (31-35) Red Cell Distribution Width 14.5 % (11.7-14.4) Platelet Count 372 x10e3/uL (140-360) Neutrophils (%) (Auto) 79.3 % (38.7-80.0) Lymphocytes (%) (Auto) 12.9 % (18.0-39.1) Monocytes (%) (Auto) 6.1 % (4.4-11.3) Eosinophils (%) (Auto) 0.9 % (0.0-6.0) Basophils (%) (Auto) 0.4 % (0.0-1.0) Neutrophils # (Auto) 8.4 (2.1-6.9) Lymphocytes # (Auto) 1.4 (1.0-3.2) Monocytes # (Auto) 0.6 (0.2-0.8) Eosinophils # (Auto) 0.1 (0.0-0.4) Basophils # (Auto) 0.0 (0.0-0.1) Absolute Immature Granulocyte (auto 0.04 x10e3/uL (0-0.1) Sodium Level 140 mmol/L (136-145) Potassium Level 4.4 mmol/L (3.5-5.1) Chloride Level 104 mmol/L (98-107) Carbon Dioxide Level 22 mmol/L (22-29) Anion Gap 18.4 mmol/L (8-16) Blood Urea Nitrogen 17 mg/dL (7-26) Creatinine 1.06 mg/dL (0.72-1.25) Estimat Glomerular Filtration Rate > 60 ML/MIN (60-) BUN/Creatinine Ratio 16 (6-25) Glucose Level 197 mg/dL (74-118) Calcium Level 9.5 mg/dL (8.4-10.2) Total Bilirubin 0.6 mg/dL (0.2-1.2) Aspartate Amino Transf (AST/SGOT) 34 IU/L (5-34) Alanine Aminotransferase (ALT/SGPT) 33 IU/L (0-55) Alkaline Phosphatase 93 IU/L (40-150) Creatine Kinase 148 IU/L (30-200) Creatine Kinase MB 4.60 ng/mL (0-5.0) Troponin I 0.012 ng/mL (0-0.300) Total Protein 7.8 g/dL (6.5-8.1) Albumin 3.8 g/dL (3.5-5.0) Globulin 4.0 g/dL (2.3-3.5) Albumin/Globulin Ratio 1.0 (0.8-2.0) Lab results reviewed: Yes Imaging Imaging results reviewed: Yes Procedures 12 Lead ECG Interpretation ECG Interpretation : ECG: ECG 1 Evp Sales: Interpreted by ED physician Rhythm: sinus rhythm Rate: normal QRS axis: right ST segments normal: Yes T waves normal: Yes Clinical Impression: non-specific ECG Assessment & Plan Medical Decision Making MDM 74-year-old male that the ED with complaints of typical sounding chest pain, high heart score with concerns of ACS. Patient admitted to telemetry for cardiac monitoring and serial troponin. Assessment & Plan Final Impression: (1) ACS (acute coronary syndrome) Depart Disposition: ADMITTED Last Vital Signs Date Time Temp Pulse Resp B/P (MAP) Pulse Ox O2 Delivery O2 Flow Rate FiO2 11/23/19 20:15 81 10 163/74 100 Nasal Cannula 2.0 11/23/19 18:36 98.5 Home Meds Reported Medications Amlodipine Besylate (AMLODIPINE BESYLATE) 10 Mg Tablet, 10 MG PO DAILY, #30 TAB 12/30/14 Aspirin (ASPIRIN CHEW) 81 Mg Chew, 81 MG PO DAILY, #30 TAB 02/19/14 Zolpidem Tartrate (ZOLPIDEM TARTRATE) 10 Mg Tablet, 10 MG PO BEDTIME, #30 TAB 02/19/14 Levothyroxine Sodium (LEVOTHYROXINE SODIUM) 75 Mcg Tablet, 75 MCG PO DAILY, #30 TAB 02/19/14 Pravastatin Sodium (PRAVASTATIN SODIUM) 40 Mg Tablet, 40 MG PO DAILY 02/19/14 Metformin Hcl (METFORMIN HCL) 500 Mg Tablet, 500 MG PO BID, #60 TAB 02/19/14 Losartan Potassium (LOSARTAN POTASSIUM) 50 Mg Tablet, 50 MG PO BID 02/19/14 Atenolol (ATENOLOL) 100 Mg Tablet, 150 MG PO DAILY 02/19/14 Medications in the ED Methylprednisolone Sodium Succinate 125 mg ONCE IV Last administered on 11/23/19 19:24; Admin Dose 125 MG; Start 11/23/19 at 19:00; Stop 11/23/19 at 20:59 Ketorolac Tromethamine 30 mg ONCE IV Last administered on 11/23/19 19:24; Admin Dose 30 MG; Start 11/23/19 at 19:00; Stop 11/23/19 at 20:00 Morphine Sulfate 4 mg ONCE PRN IV SEVERE PAIN (7-10) Last administered on 11/23/19 19:24; Admin Dose 4 MG; Start 11/23/19 at 19:00; Stop 11/23/19 at 20:59 Ondansetron HCl 4 mg NOW IV Last administered on 11/23/19 19:24; Admin Dose 4 MG; Start 11/23/19 at 19:00; Stop 11/23/19 at 20:59 PIERCE FUENTES DO Nov 23, 2019 20:56
[2019-11-23] MEDS ORDERED: HYDRALAZINE HCL 20 MG/ML VIAL IV PRN (21:15)
[2019-11-23] MEDS ORDERED: DEXTROSE 50% SYRINGE 50 ML IV PRN (21:15)
[2019-11-23 21:30] VITALS: BP 165/79
--- NOTE | 2019-11-23 21:30 | NUR ---
rECEIVED REPORT FROM AUTOMOBILE TECHNICIAN. PT IS ALERT AND ORIENTED FROM ER. PT DENIES CHEST PAIN. TELE ON.VOIDING WITHOUT DIFFICULTY. RESPIRATIONS EVEN AND UNLABORED.20 G SL RT AC. ORIENTED TO ROOM AND PMC. REVIEWED HOME MEDS. .CALL LIGHT WITHIN REACH. BED IN LOW POSIITON.
[2019-11-23 21:45] VITALS: BP 165/79
[2019-11-23 22:02] VITALS: BP 178/79
--- NOTE | 2019-11-23 22:58 | NUR ---
History of present illness: 74-year-old gentleman presented to emergency department complaint of chest pain of 2 hours duration. The patient does have a history of stent placement. Basically complaining of chest pain like a pressure sensation in the epigastric area. No nausea, no vomiting, no diarrhea, no fever no chills. Past medical history: Significant for diabetes, hypertension GERD. Previous cardiac stenting. Past rectal history: Previous back surgery. Previous tonsillectomy. 3 knee surgeries with knee replacement. Social history: No tobacco alcohol abuse. Allergies: Per chart. Patient is on:. Patient has been alert oriented person time place. Vital signs blood pressure on arrival to the hospital 10 75, respiration 18, pulse 86, temperature 98.5 HEENT: No gross abnormalities Neck: Supple no JVD Lungs: Clear to auscultation Heart: Regular rate and rhythm, no murmurs no gallops Abdomen: Soft non tender, no guarding. Extremities: No edema Neurologic: Alert oriented 3, no focal weakness. Psychiatrist: Nor mal mood, normal judgment. Skin: No rashes Lab data: CBC revealed: Hemoglobin 14.5, WBC 10.56, platelet) of 22,000, Sodium 140, potassium 4.4, chloride 104, CO2 22, BUN 20, creatinine 1.06, blood sugar 197 KG: Did reveal normal sinus rhythm, no acute changes. Assessment: Chest pain treated intermittent Diabetes mellitus History of CAD Hypertension Of care: Serial EKG Cardiac enzymes. Reconcile home medications. Consult cardiology
[2019-11-24] VITALS: BP 153/81
[2019-11-24] MEDS ORDERED: ZOLPIDEM TARTRATE 10 MG TAB PO PRN (01:30)
[2019-11-24 02:48] LABS: CREATINE KINASE MB 3.6 ng/mL (0-5.0)
[2019-11-24 02:57] LABS: CHOL/HDL RATIO 3.9 (3.9-4.7)
[2019-11-24 04:00] VITALS: BP 147/69
[2019-11-24] MEDS: INSULIN REGULAR, HUMAN 100 UNIT/1 ML 3ML VIAL SQ SCH ×2 (07:30→11:30)
[2019-11-24 08:00] VITALS: BP 151/71
[2019-11-24 08:44] VITALS: BP 151/71
[2019-11-24] MEDS ORDERED: AMLODIPINE BESYLATE 10 MG TAB PO SCH (09:00)
[2019-11-24] MEDS ORDERED: ASPIRIN 81 MG CHEW TAB PO SCH (09:00)
[2019-11-24] MEDS ORDERED: LOSARTAN POTASSIUM 100 MG TAB PO SCH (09:00)
[2019-11-24] MEDS ORDERED: NON-FORMULARY MEDICATION (Pravastatin Sodium 40 MG) PO SCH (09:00)
[2019-11-24] MEDS ORDERED: ATENOLOL 100 MG TAB PO SCH ×2 (09:00)
[2019-11-24] MEDS ORDERED: LEVOTHYROXINE SODIUM 75 MCG TAB PO SCH (09:00)
[2019-11-24] MEDS ORDERED: NON-FORMULARY MEDICATION (Losartan Potassium 50 MG) PO SCH (09:00)
[2019-11-24] MEDS ORDERED: LOSARTAN POTASSIUM 25 MG TAB PO SCH (09:00)
[2019-11-24] MEDS ORDERED: CLOPIDOGREL BISULFATE 75 MG TAB PO SCH (09:45)
[2019-11-24] MEDS ORDERED: PRAVASTATIN 20 MG TAB PO SCH ×2 (10:00→21:00)
--- NOTE | 2019-11-24 13:09 | NUR ---
Patient received discharge order from Dr. Thapa after Dr. Lamar cleared patient after an echocardiogram. Patient was given discharge prescriptions, instructions, and education. Patient verbalized understanding and had no further questions. Patient's IV was removed at 1230 and covered with a C/D/I. Patient was wheeled to his car at 1315 and had no other issues or complaints.
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
--- NOTE | 2019-11-24 16:59 | NUR ---
Nutrition Screen Note RD Recommendation for Physician: -Recommend adding ADA diet to diet order Plan of Care: RD following, monitoring for tolerance and adequacy Nutrition reason for involvement: Nutrition Risk Trigger Primary Diagnose(s): chest pain PMH: CAD, stent placement in 1992, 1999 and 2006, history of hypertension, diabetes mellitus, and GERD. Ht: 72 in Wt: 182.25 lb BMI: 24.7 kg/m2 IBW: [address] Assessment: (11/24/19) Chart reviewed. Labs and meds reviewed. Pt is a 74 year old male admitted with chest pain. Pt reports eating all of his meals. No weight loss reported and pt stated he usually weighs 177-182 lbs. No N/V/D/C or chewing/swallowing issues. Will continue to monitor. Current Diet: cardiac Malnutrition Evaluation (11/24/19) The patient does not meet criteria for a specified degree of malnutrition at this time. Will re-evaluate at follow-up as appropriate. Diet Education Needs Assessment: Pt declined the need for diet education Nutrition Care Level: low Signed: Aileen Amor, RD, LD
== END 2019-11-24 13:15 | disposition home or self-care (01) ==
LOC: ER 18:35 → ERHOLD 20:28 → MED/SURG 21:31
PROVIDERS: ADMIT Internal Medicine; ATTEND Internal Medicine
DX: I24.9 Acute ischemic heart disease, unspecified (principal); I25.10 Atherosclerotic heart disease of native coronary artery without angina pectoris; Z95.5 Presence of coronary angioplasty implant and graft; K21.9 Gastro-esophageal reflux disease without esophagitis; E11.9 Type 2 diabetes mellitus without complications; Z72.0 Tobacco use; E78.00 Pure hypercholesterolemia, unspecified; Z11.59 Encounter for screening for other viral diseases
CPT/HCPCS: 36415; 71045; 80053; 80061; 82550 ×2; 82553 ×2; 82948; 84484 ×2; 85025; 93005; 93306; 99284; G0378 ×2; J1885; J2270; J2405; J2930; U0002

== ENCOUNTER → 2020-09-21 | Day surgery (SDC) | payer OTHER ==
[2020-09-14 16:29] LABS: BASOPHILS % 0.5 % (0.0-1.0); EOSINOPHILS # (AUTO) 0.5 (0.0-0.4); EOSINOPHILS % 6.3 % (0.0-6.0); HEMATOCRIT 41.5 % (38.2-49.6); HEMOGLOBIN 13.3 g/dL (14.0-18.0); LYMPHOCYTES # (AUTO) 1.9 (1.0-3.2); LYMPHOCYTES % 23.9 % (18.0-39.1); MEAN CORPUSCULAR VOLUME 90.6 fL (81-99); MONOCYTES # (AUTO) 0.7 (0.2-0.8); NEUTROPHILS # (AUTO) 4.6 (2.1-6.9); NEUTROPHILS % 59.9 % (38.7-80.0); PLATELET COUNT 284 x10e3/uL (140-360); RED BLOOD COUNT 4.58 x10e6/uL (4.3-5.7); RED CELL DISTRIBUTION WIDTH 15.1 % (11.7-14.4)
[~2020-09-21] MED LIST changes: +GLUCAGON FOR INJ 1 MG VIAL ONE; +LIDOCAINE HCL 2% LOCAL INJ 5 ML SDV VIAL INJ ONE; +PROPOFOL IV EMULSION 10 MG/ML 20 ML VIAL ONE
== END | disposition home or self-care (01) ==
LOC: OR 08:28
PROVIDERS: ATTEND Internal Medicine Gastroenterology
DX: Z09 Encounter for follow-up examination after completed treatment for conditions other than malignant neoplasm (principal); D12.2 Benign neoplasm of ascending colon; D12.3 Benign neoplasm of transverse colon; D12.4 Benign neoplasm of descending colon; K29.70 Gastritis, unspecified, without bleeding; K21.00 Gastro-esophageal reflux disease with esophagitis, without bleeding; K31.89 Other diseases of stomach and duodenum; K44.9 Diaphragmatic hernia without obstruction or gangrene; K57.30 Diverticulosis of large intestine without perforation or abscess without bleeding; K64.8 Other hemorrhoids; Z87.11 Personal history of peptic ulcer disease; H91.90 Unspecified hearing loss, unspecified ear; I10 Essential (primary) hypertension; E03.9 Hypothyroidism, unspecified; E11.9 Type 2 diabetes mellitus without complications; E78.5 Hyperlipidemia, unspecified; Z01.810 Encounter for preprocedural cardiovascular examination; Z01.812 Encounter for preprocedural laboratory examination; Z79.82 Long term (current) use of aspirin; Z79.84 Long term (current) use of oral hypoglycemic drugs; Z87.01 Personal history of pneumonia (recurrent); Z80.0 Family history of malignant neoplasm of digestive organs
CPT/HCPCS: 36415 ×2; 43239; 45381; 45385; 82948; 85025; 88305; 88312; 93005; J1610; J2001; J2704; 45378; 45384

== ENCOUNTER 2020-12-26 15:14 | Inpatient (IN) | payer OTHER ==
[~2020-12-26] VITALS: Ht 177.8 cm; Wt 82.6 kg
[~2020-12-26 15:14] MED LIST changes: -GLUCAGON FOR INJ 1 MG VIAL ONE; -LIDOCAINE HCL 2% LOCAL INJ 5 ML SDV VIAL INJ ONE; -PROPOFOL IV EMULSION 10 MG/ML 20 ML VIAL ONE
[2020-12-26 15:43] LABS: BASOPHILS # (AUTO) 0.1 (0.0-0.1); BASOPHILS % 0.5 % (0.0-1.0); EOSINOPHILS # (AUTO) 0.2 (0.0-0.4); EOSINOPHILS % 2.6 % (0.0-6.0); HEMATOCRIT 44.1 % (38.2-49.6); LYMPHOCYTES # (AUTO) 1.7 (1.0-3.2); LYMPHOCYTES % 18.9 % (18.0-39.1); MEAN CORPUSCULAR HEMOGLOBIN 29.2 pg (28-32); MEAN CORPUSCULAR HGB CONC 31.7 g/dL (31-35); MEAN CORPUSCULAR VOLUME 91.9 fL (81-99); MONOCYTES # (AUTO) 0.7 (0.2-0.8); MONOCYTES % 7.5 % (4.4-11.3); NEUTROPHILS # (AUTO) 6.4 (2.1-6.9); NEUTROPHILS % 70.1 % (38.7-80.0); PLATELET COUNT 349 x10e3/uL (140-360)
[2020-12-26 16:15] LABS: INR 0.94; PROTHROMBIN TIME 12.8 seconds (11.9-14.5)
[2020-12-26 16:16] LABS: PARTIAL THROMBOPLASTIN TIME 29.1 seconds (23.8-35.5)
[2020-12-26 16:24] LABS: ALBUMIN 3.9 g/dL (3.5-5.0); ALBUMIN/GLOBULIN RATIO 1.1 (0.8-2.0); CALCIUM 8.9 mg/dL (8.4-10.2); CREATININE, SERUM 1.01 mg/dL (0.72-1.25)
[2020-12-26 16:31] LABS: CREATINE KINASE MB 2.3 ng/mL (0-5.0)
[2020-12-26] MEDS ORDERED: ONDANSETRON HCL INJ 2MG/ML 2ML 2 MG/ML VIAL IV PRN (17:30)
[2020-12-26] MEDS ORDERED: HYDROCODONE/APAP 5MG-325MG TAB PO ONE (17:30)
[2020-12-26] MEDS ORDERED: NITROGLYCERIN 0.4 MG SUBL SL PRN (17:30)
[2020-12-26] MEDS ORDERED: ACETAMINOPHEN 325 MG TAB PO ONE (18:00)
[2020-12-26 20:00] VITALS: BP 152/73
[2020-12-26 20:45] VITALS: BP 152/73
[2020-12-26] MEDS ORDERED: ZOLPIDEM TARTRATE 10 MG TAB PO ONE (22:30)
[2020-12-26] MEDS: MORPHINE SULFATE INJ 2 MG/ML SYR IV PRN (23:03)
[2020-12-26] MEDS ORDERED: NEURONTIN300 MG PO (23:23)
[2020-12-26] MEDS ORDERED: GABAPENTIN 300 MG CAP PO ONE (23:30)
[2020-12-27] VITALS (8 sets, daily range): BP systolic 136–168; BP diastolic 76–82
[2020-12-27] MEDS: MORPHINE SULFATE INJ 2 MG/ML SYR IV PRN ×3 (04:15→17:32)
[2020-12-27 07:14] LABS: CHOL/HDL RATIO 3.1 (3.9-4.7)
[2020-12-27 07:40] LABS: CREATINE KINASE MB 2.5 ng/mL (0-5.0)
[2020-12-27] MEDS: ASPIRIN 81 MG CHEW TAB PO SCH (08:12)
[2020-12-27] MEDS: LOSARTAN POTASSIUM 100 MG TAB PO SCH (08:12)
[2020-12-27] MEDS: AMLODIPINE BESYLATE 10 MG TAB PO SCH (08:13)
[2020-12-27] MEDS: LEVOTHYROXINE SODIUM 75 MCG TAB PO SCH (08:13)
[2020-12-27] MEDS: ATENOLOL 50 MG TAB PO SCH (08:13)
[2020-12-27] MEDS ORDERED: METFORMIN HCL 500 MG TAB PO SCH (09:00)
[2020-12-27] MEDS ORDERED: ASPIRIN 81 MG ENTERIC COATED PO SCH (09:00)
[2020-12-27] MEDS ORDERED: MAGNESIUM HYDROXIDE 30 ML UDC PO PRN (10:00)
[2020-12-27] MEDS ORDERED: HYDRALAZINE HCL 20 MG/ML VIAL IV PRN (10:00)
[2020-12-27] MEDS ORDERED: HEPARIN 25,000 UNIT 25,000 UNIT in DEXTROSE 5% 250ML 250 ML IV SCH (10:00)
[2020-12-27] MEDS ORDERED: SODIUM CHLORIDE 0.9% 250ML 250 ML ONE (10:58)
[2020-12-27] MEDS: HYDROCODONE/APAP 7.5MG-325MG 1 EA TAB PO PRN ×2 (11:05→20:59)
[2020-12-27] MEDS: GABAPENTIN 300 MG CAP PO SCH ×2 (11:05→21:00)
[2020-12-27] MEDS: PIPERACILLIN/TAZOBACTAM 3.375 GM in SODIUM CHLORIDE 0.9% 50ML 50 ML IV SCH ×3 (11:05→23:58)
[2020-12-27] MEDS ORDERED: HEPARIN SOD (PORCINE) 5,000 UNIT/ML VIAL IV ONE (11:30)
[2020-12-27] MEDS ORDERED: HEPARIN 25,000 UNIT 1,400 UNIT in DEXTROSE 5% 250ML 250 ML IV SCH (11:45)
[2020-12-27] MEDS ORDERED: HEPARIN 25,000 UNIT DRIP IV ONE (12:20)
[2020-12-27] MEDS: Vancomycin IV 1 GM in SODIUM CHLORIDE 0.9% 250ML 250 ML IV SCH (13:07)
[2020-12-27 14:41] LABS: CREATINE KINASE MB 2.2 ng/mL (0-5.0)
[2020-12-27] MEDS: SENNA-S TABLET PO SCH (17:05)
[2020-12-27] MEDS: ATORVASTATIN 20 MG TAB PO SCH (21:00)
[2020-12-27] MEDS ORDERED: GABAPENTIN 300 MG CAP PO SCH (21:00)
[2020-12-27] MEDS ORDERED: ZOLPIDEM TARTRATE 10 MG TAB PO SCH (21:00)
[2020-12-27] MEDS: ZOLPIDEM TARTRATE 10 MG TAB PO PRN (21:00)
[2020-12-27] MEDS: SODIUM CHLORIDE 0.9% 1000ML 1,000 ML IV SCH (23:58)
[2020-12-28] VITALS (20 sets, daily range): BP systolic 123–178; BP diastolic 46–83
[2020-12-28 04:59] LABS: BASOPHILS # (AUTO) 0.1 (0.0-0.1); BASOPHILS % 0.5 % (0.0-1.0); EOSINOPHILS # (AUTO) 0.5 (0.0-0.4); EOSINOPHILS % 5.4 % (0.0-6.0); HEMATOCRIT 40.7 % (38.2-49.6); HEMOGLOBIN 12.9 g/dL (14.0-18.0); LYMPHOCYTES # (AUTO) 1.9 (1.0-3.2); LYMPHOCYTES % 20.7 % (18.0-39.1); MEAN CORPUSCULAR HEMOGLOBIN 28.8 pg (28-32); MEAN CORPUSCULAR HGB CONC 31.7 g/dL (31-35); MEAN CORPUSCULAR VOLUME 90.8 fL (81-99); MONOCYTES # (AUTO) 0.9 (0.2-0.8); MONOCYTES % 9.9 % (4.4-11.3); NEUTROPHILS # (AUTO) 5.7 (2.1-6.9); NEUTROPHILS % 63.1 % (38.7-80.0); PLATELET COUNT 290 x10e3/uL (140-360); RED BLOOD COUNT 4.48 x10e6/uL (4.3-5.7); RED CELL DISTRIBUTION WIDTH 13.8 % (11.7-14.4)
[2020-12-28] MEDS: HYDROCODONE/APAP 7.5MG-325MG 1 EA TAB PO PRN ×3 (05:00→19:30)
[2020-12-28 05:09] LABS: INR 0.99; PROTHROMBIN TIME 13.3 seconds (11.9-14.5)
[2020-12-28 05:10] LABS: PARTIAL THROMBOPLASTIN TIME 38.6 seconds (23.8-35.5)
[2020-12-28 05:16] LABS: ALBUMIN 3.6 g/dL (3.5-5.0); ALBUMIN/GLOBULIN RATIO 1.2 (0.8-2.0); ANION GAP 14.9 mmol/L (8-16); CALCIUM 8.7 mg/dL (8.4-10.2); CREATININE, SERUM 0.93 mg/dL (0.72-1.25); POTASSIUM 3.9 mmol/L (3.5-5.1)
[2020-12-28] MEDS: SODIUM CHLORIDE 0.9% 1000ML 1,000 ML IV SCH ×3 (06:38→17:30)
[2020-12-28] MEDS: PIPERACILLIN/TAZOBACTAM 3.375 GM in SODIUM CHLORIDE 0.9% 50ML 50 ML IV SCH ×4 (06:38→23:55)
[2020-12-28] MEDS: ASPIRIN 81 MG CHEW TAB PO SCH (08:44)
[2020-12-28] MEDS: SENNA-S TABLET PO SCH ×2 (08:44→17:00)
[2020-12-28] MEDS: GABAPENTIN 300 MG CAP PO SCH ×3 (08:44→21:00)
[2020-12-28] MEDS: Vancomycin IV 1 GM in SODIUM CHLORIDE 0.9% 250ML 250 ML IV SCH (08:44)
[2020-12-28] MEDS: ATORVASTATIN 20 MG TAB PO SCH (08:44)
[2020-12-28] MEDS: LEVOTHYROXINE SODIUM 75 MCG TAB PO SCH (08:45)
[2020-12-28] MEDS: LOSARTAN POTASSIUM 100 MG TAB PO SCH (09:00)
[2020-12-28] MEDS: AMLODIPINE BESYLATE 10 MG TAB PO SCH (09:00)
[2020-12-28] MEDS: ATENOLOL 50 MG TAB PO SCH (09:00)
[2020-12-28] MEDS ORDERED: ACETAMINOPHEN 325 MG TAB PO PRN (12:45)
[2020-12-28] MEDS ORDERED: MIDAZOLAM HCL 2 MG/2 ML VIAL ONE (13:21)
[2020-12-28] MEDS ORDERED: FENTANYL CITRATE/PF 100MCG/2 ML INJ ONE (13:22)
[2020-12-28] MEDS ORDERED: HEPARIN SOD/SOD CHLORIDE 2,000 ML ONE (13:22)
[2020-12-28] MEDS ORDERED: LIDOCAINE HCL 2% LOCAL 20 ML VIAL ONE (13:22)
[2020-12-28] MEDS ORDERED: IOPAMIDOL 300MG/ML 100 ML INFUS..BTL IV ONE (13:23)
[2020-12-28] MEDS ORDERED: SODIUM CHLORIDE 0.9% 1000ML 1,000 ML ONE (13:24)
[2020-12-28] MEDS ORDERED: HEPARIN SOD (PORCINE) 1000 UNIT/ML 30ML ONE (13:43)
[2020-12-28] MEDS ORDERED: ASPIRIN 325 MG TAB ONE (14:19)
[2020-12-28] MEDS ORDERED: CLOPIDOGREL BISULFATE 75 MG TAB ONE (14:19)
[2020-12-28] MEDS ORDERED: ONDANSETRON HCL INJ 2MG/ML 2ML 2 MG/ML VIAL ONE (14:48)
[2020-12-28] MEDS: ZOLPIDEM TARTRATE 10 MG TAB PO PRN (22:44)
[2020-12-29] VITALS (8 sets, daily range): BP systolic 115–152; BP diastolic 62–99
[2020-12-29] MEDS: SODIUM CHLORIDE 0.9% 1000ML 1,000 ML IV SCH ×2 (01:40→20:30)
[2020-12-29 05:04] LABS: BASOPHILS % 0.4 % (0.0-1.0); EOSINOPHILS # (AUTO) 0.3 (0.0-0.4); EOSINOPHILS % 3.6 % (0.0-6.0); HEMATOCRIT 38.6 % (38.2-49.6); HEMOGLOBIN 12.5 g/dL (14.0-18.0); LYMPHOCYTES # (AUTO) 1.2 (1.0-3.2); LYMPHOCYTES % 13.5 % (18.0-39.1); MEAN CORPUSCULAR HEMOGLOBIN 28.7 pg (28-32); MEAN CORPUSCULAR HGB CONC 32.4 g/dL (31-35); MEAN CORPUSCULAR VOLUME 88.7 fL (81-99); MONOCYTES # (AUTO) 0.9 (0.2-0.8); MONOCYTES % 9.9 % (4.4-11.3); NEUTROPHILS # (AUTO) 6.7 (2.1-6.9); NEUTROPHILS % 72.4 % (38.7-80.0); PLATELET COUNT 270 x10e3/uL (140-360); RED BLOOD COUNT 4.35 x10e6/uL (4.3-5.7); RED CELL DISTRIBUTION WIDTH 13.6 % (11.7-14.4)
[2020-12-29 05:23] LABS: ANION GAP 12.8 mmol/L (8-16); CALCIUM 8.5 mg/dL (8.4-10.2); CREATININE, SERUM 0.84 mg/dL (0.72-1.25); POTASSIUM 3.8 mmol/L (3.5-5.1)
[2020-12-29] MEDS: PIPERACILLIN/TAZOBACTAM 3.375 GM in SODIUM CHLORIDE 0.9% 50ML 50 ML IV SCH ×4 (05:38→23:28)
[2020-12-29] MEDS ORDERED: ENOXAPARIN SOD INJ 40 MG/0.4 ML SYR SC SCH (09:00)
[2020-12-29] MEDS ORDERED: REGADENOSON 0.4 MG/5 ML SYR IV ONE (09:26)
[2020-12-29] MEDS ORDERED: ONDANSETRON HCL 4 MG ORAL DISINTEGRATING TAB PO PRN (11:00)
[2020-12-29] MEDS: CLOPIDOGREL BISULFATE 75 MG TAB PO SCH (11:06)
[2020-12-29] MEDS: GABAPENTIN 300 MG CAP PO SCH ×4 (11:06→22:56)
[2020-12-29] MEDS: LOSARTAN POTASSIUM 100 MG TAB PO SCH (11:06)
[2020-12-29] MEDS: SENNA-S TABLET PO SCH ×2 (11:06→17:07)
[2020-12-29] MEDS: ATORVASTATIN 20 MG TAB PO SCH (11:06)
[2020-12-29] MEDS: LEVOTHYROXINE SODIUM 75 MCG TAB PO SCH (11:06)
[2020-12-29] MEDS: ASPIRIN 81 MG CHEW TAB PO SCH (11:06)
[2020-12-29] MEDS: Vancomycin IV 1 GM in SODIUM CHLORIDE 0.9% 250ML 250 ML IV SCH (11:06)
[2020-12-29] MEDS: AMLODIPINE BESYLATE 10 MG TAB PO SCH (11:06)
[2020-12-29] MEDS: ATENOLOL 50 MG TAB PO SCH (11:07)
[2020-12-29] MEDS ORDERED: DEXTROSE 50% SYRINGE 50 ML IV PRN (11:45)
[2020-12-29] MEDS: INSULIN REGULAR, HUMAN 100 UNIT/1 ML SQ SCH ×3 (12:00→21:00)
[2020-12-29] MEDS: HYDROCODONE/APAP 7.5MG-325MG 1 EA TAB PO PRN ×2 (14:26→21:40)
[2020-12-29] MEDS: ZOLPIDEM TARTRATE 10 MG TAB PO PRN (22:56)
[2020-12-30] VITALS (8 sets, daily range): BP systolic 117–171; BP diastolic 60–77
[2020-12-30] MEDS: HYDROCODONE/APAP 7.5MG-325MG 1 EA TAB PO PRN ×2 (04:19→21:45)
[2020-12-30] MEDS: PIPERACILLIN/TAZOBACTAM 3.375 GM in SODIUM CHLORIDE 0.9% 50ML 50 ML IV SCH ×3 (06:15→18:34)
[2020-12-30] MEDS: INSULIN REGULAR, HUMAN 100 UNIT/1 ML SQ SCH ×4 (07:30→21:00)
[2020-12-30] MEDS: ATORVASTATIN 20 MG TAB PO SCH (09:00)
[2020-12-30] MEDS ORDERED: LORAZEPAM INJ 2 MG/ML VIAL IV ONE (09:30)
[2020-12-30] MEDS ORDERED: NIFEDIPINE CR 30 MG TAB PO ONE (10:00)
[2020-12-30] MEDS: ASPIRIN 81 MG CHEW TAB PO SCH (10:16)
[2020-12-30] MEDS: GABAPENTIN 300 MG CAP PO SCH ×3 (10:17→23:30)
[2020-12-30] MEDS: SENNA-S TABLET PO SCH ×2 (10:19→16:10)
[2020-12-30] MEDS: CLOPIDOGREL BISULFATE 75 MG TAB PO SCH (10:19)
[2020-12-30] MEDS: LEVOTHYROXINE SODIUM 75 MCG TAB PO SCH (10:19)
[2020-12-30] MEDS: LOSARTAN POTASSIUM 100 MG TAB PO SCH (10:20)
[2020-12-30] MEDS: ATENOLOL 50 MG TAB PO SCH (10:20)
[2020-12-30] MEDS: ZOLPIDEM TARTRATE 10 MG TAB PO PRN (23:55)
[2020-12-31] MEDS: PIPERACILLIN/TAZOBACTAM 3.375 GM in SODIUM CHLORIDE 0.9% 50ML 50 ML IV SCH ×2 (00:27→05:56)
[2020-12-31 01:42] VITALS: BP 128/60
[2020-12-31 05:07] VITALS: BP 98/50
[2020-12-31] MEDS: HYDROCODONE/APAP 7.5MG-325MG 1 EA TAB PO PRN (05:56)
[2020-12-31] MEDS ORDERED: NIFEDIPINE CR 30 MG TAB PO SCH (06:00)
[2020-12-31] MEDS: INSULIN REGULAR, HUMAN 100 UNIT/1 ML SQ SCH (07:30)
[2020-12-31 07:39] VITALS: BP 115/67
[2020-12-31 07:55] VITALS: BP 115/67
[2020-12-31] MEDS: ASPIRIN 81 MG CHEW TAB PO SCH (08:11)
[2020-12-31] MEDS: LOSARTAN POTASSIUM 100 MG TAB PO SCH (08:12)
[2020-12-31] MEDS: GABAPENTIN 300 MG CAP PO SCH (08:12)
[2020-12-31] MEDS: LEVOTHYROXINE SODIUM 75 MCG TAB PO SCH (08:13)
[2020-12-31] MEDS: SENNA-S TABLET PO SCH (08:13)
[2020-12-31] MEDS: CLOPIDOGREL BISULFATE 75 MG TAB PO SCH (08:13)
[2020-12-31] MEDS: ATENOLOL 50 MG TAB PO SCH (08:14)
[2020-12-31] MEDS ORDERED: LIPITOR20 MG PO (10:04)
[2020-12-31] MEDS ORDERED: PLAVIX75 MG PO (10:04)
[2020-12-31] MEDS ORDERED: NIFEDIPINE ER30 M1 PO (10:05)
[2020-12-31] MEDS ORDERED: NEURONTIN300 MG PO (10:05)
[2020-12-31] MEDS ORDERED: CIPRO250 MG PO (10:06)
[2020-12-31] MEDS ORDERED: BACTRIM DS TAB1 EACH PO (10:06)
[2020-12-31] MEDS ORDERED: TYLENOL #3 PO (10:07)
[2020-12-31] MEDS ORDERED: ONDANSETRON ODT4 MG PO (10:07)
[2020-12-31] MEDS ORDERED: CELEBREX200 MG PO (10:08)
== END 2020-12-31 11:14 | disposition home health service (06) | DRG 253 ==
LOC: ER 16:03 → ERHOLD 16:49 → MED/SURG2 17:58 → OBSVTOIN 12-27 09:54
PROVIDERS: ADMIT Internal Medicine; ATTEND Internal Medicine
PROC: 047L341 Dilation of Left Femoral Artery with Drug-eluting Intraluminal Device, using Drug-Coated Balloon, Percutaneous Approach (ICD-10-PCS; 2020-12-28)
PROC: 047N3Z1 Dilation of Left Popliteal Artery using Drug-Coated Balloon, Percutaneous Approach (ICD-10-PCS; 2020-12-28)
PROC: B41D1ZZ Fluoroscopy of Aorta and Bilateral Lower Extremity Arteries using Low Osmolar Contrast (ICD-10-PCS; 2020-12-28)
PROC: 0H9NXZZ Drainage of Left Foot Skin, External Approach (ICD-10-PCS; principal; 2020-12-29)
DX: E11.51 Type 2 diabetes mellitus with diabetic peripheral angiopathy without gangrene (principal); L03.116 Cellulitis of left lower limb; L97.421 Non-pressure chronic ulcer of left heel and midfoot limited to breakdown of skin; L02.612 Cutaneous abscess of left foot; I70.222 Atherosclerosis of native arteries of extremities with rest pain, left leg; E11.621 Type 2 diabetes mellitus with foot ulcer; E11.42 Type 2 diabetes mellitus with diabetic polyneuropathy; E11.628 Type 2 diabetes mellitus with other skin complications; I25.119 Atherosclerotic heart disease of native coronary artery with unspecified angina pectoris; Z95.5 Presence of coronary angioplasty implant and graft; L97.529 Non-pressure chronic ulcer of other part of left foot with unspecified severity; E03.9 Hypothyroidism, unspecified; K21.9 Gastro-esophageal reflux disease without esophagitis; I25.10 Atherosclerotic heart disease of native coronary artery without angina pectoris; I11.0 Hypertensive heart disease with heart failure; I50.9 Heart failure, unspecified; E78.5 Hyperlipidemia, unspecified; Z87.891 Personal history of nicotine dependence; Z79.82 Long term (current) use of aspirin; B96.89 Other specified bacterial agents as the cause of diseases classified elsewhere; I16.0 Hypertensive urgency; Z79.84 Long term (current) use of oral hypoglycemic drugs
CPT/HCPCS: 36247; 36415; 37224; 37228; 37230; 71045; 75625; 75716; 76937; 78452; 80048; 80053; 80061; 80202; 82550; 82553; 82948; 83036; 83735; 83880; 84443; 84484; 85025; 85610; 85651; 85730; 87071; 87186; 87205; 93005; 93017; 93306; 93926; 96361; 99152; 99153; 99284; A9502; C1725; C1769; C1876; C1887; C1894; C2623; G0378; J1644; J1650; J1817; J2001; J2250; J2270; J2405; J2543; J3010; J3370; J7030; J7050; Q9967; U0002

== ENCOUNTER 2021-03-08 09:24 | Observation (INO) | payer OTHER ==
[2021-03-04 10:49] LABS: BASOPHILS # (AUTO) 0.1 (0.0-0.1); BASOPHILS % 0.8 % (0.0-1.0); EOSINOPHILS # (AUTO) 0.8 (0.0-0.4); EOSINOPHILS % 10.5 % (0.0-6.0); HEMATOCRIT 39.5 % (38.2-49.6); HEMOGLOBIN 12.8 g/dL (14.0-18.0); LYMPHOCYTES # (AUTO) 1.3 (1.0-3.2); LYMPHOCYTES % 18.2 % (18.0-39.1); MEAN CORPUSCULAR HEMOGLOBIN 29.3 pg (28-32); MEAN CORPUSCULAR HGB CONC 32.4 g/dL (31-35); MEAN CORPUSCULAR VOLUME 90.4 fL (81-99); MONOCYTES # (AUTO) 0.6 (0.2-0.8); MONOCYTES % 8.9 % (4.4-11.3); NEUTROPHILS # (AUTO) 4.4 (2.1-6.9); NEUTROPHILS % 61.3 % (38.7-80.0); PLATELET COUNT 315 x10e3/uL (140-360); RED BLOOD COUNT 4.37 x10e6/uL (4.3-5.7); RED CELL DISTRIBUTION WIDTH 14.5 % (11.7-14.4)
[2021-03-04 11:14] LABS: ALBUMIN 3.9 g/dL (3.5-5.0); ALBUMIN/GLOBULIN RATIO 1.1 (0.8-2.0); ANION GAP 12.1 mmol/L (8-16); CREATININE, SERUM 1.08 mg/dL (0.72-1.25); POTASSIUM 4.1 mmol/L (3.5-5.1)
[~2021-03-08] VITALS: Ht 182.9 cm; Wt 83.9 kg
[~2021-03-08 09:24] MED LIST changes: +BACTRIM DS TAB1 EACH PO; +CELEBREX200 MG PO; +CIPRO250 MG PO; +LIPITOR20 MG PO; +NEURONTIN300 MG PO; +NIFEDIPINE ER30 M1 PO; +ONDANSETRON ODT4 MG PO; +TYLENOL #3 PO
[2021-03-08 09:50] VITALS: BP 142/83
[2021-03-08] MEDS ORDERED: LOSARTAN POTAS100 MG PO (10:02)
[2021-03-08] MEDS ORDERED: FEROSUL325 MG PO (10:02)
[2021-03-08] MEDS ORDERED: AMLODIPINE BESY10 MG PO (10:02)
[2021-03-08] MEDS ORDERED: CENTRUM ADULTS1 EACH PO (10:02)
[2021-03-08] MEDS ORDERED: PRAVASTATIN SOD40 MG PEG (10:02)
[2021-03-08] MEDS ORDERED: FISH OIL 1,0001 EAC2 PO (10:02)
[2021-03-08] MEDS ORDERED: ferrous sulfate (10:02)
[2021-03-08] MEDS ORDERED: VITAMIN D3 COM1 EACH PO (10:02)
[2021-03-08] MEDS ORDERED: OMEPRAZOLE40 MG PO (10:02)
[2021-03-08] MEDS ORDERED: DIPHENHYDRAMINE HCL 25 MG CAP ONE (11:02)
[2021-03-08] MEDS ORDERED: ALPRAZOLAM 0.5 MG TAB ONE (11:02)
[2021-03-08] MEDS ORDERED: LIDOCAINE HCL 2% LOCAL 20 ML VIAL ONE (15:18)
[2021-03-08] MEDS ORDERED: SODIUM CHLORIDE 0.9% 1000ML 1,000 ML ONE ×2 (15:18→15:43)
[2021-03-08] MEDS ORDERED: HEPARIN SOD/SOD CHLORIDE 2,000 ML ONE (15:18)
[2021-03-08] MEDS ORDERED: IOPAMIDOL 300MG/ML 100 ML INFUS..BTL IV ONE (15:18)
[2021-03-08] MEDS ORDERED: MIDAZOLAM HCL 2 MG/2 ML VIAL ONE (15:20)
[2021-03-08] MEDS ORDERED: FENTANYL CITRATE/PF 100MCG/2 ML INJ ONE (15:20)
[2021-03-08] MEDS ORDERED: VERAPAMIL HCL 2.5 MG/ML 2 ML VIAL ONE (15:43)
[2021-03-08] MEDS ORDERED: PRASUGREL 10 MG TAB ONE (16:11)
[2021-03-08] MEDS ORDERED: ASPIRIN 325 MG TAB ONE (16:11)
[2021-03-08 16:13] VITALS: BP 138/64
[2021-03-08] MEDS ORDERED: Morphine 4mg Syringe 4 MG/ML INJ IV PRN (16:15)
[2021-03-08] MEDS ORDERED: HYDROCODONE/APAP 5MG-325MG TAB PO PRN (16:15)
[2021-03-08] MEDS ORDERED: NON-FORMULARY MEDICATION ([Tylenol #3] 1 TAB) PO PRN (16:15)
[2021-03-08] MEDS ORDERED: ACETAMINOPHEN 325 MG TAB PO PRN (16:15)
[2021-03-08] MEDS ORDERED: ONDANSETRON HCL INJ 2MG/ML 2ML 2 MG/ML VIAL IV PRN (16:15)
[2021-03-08] MEDS ORDERED: Morphine 2mg Syringe 2 MG/ML SYR IV PRN (16:15)
[2021-03-08] MEDS ORDERED: SODIUM CHLORIDE 0.9% 1000ML 1,000 ML IV SCH (17:15)
[2021-03-08] MEDS: TRIMETHOPRIM/SULFAMETHOXAZOLE 160-800 MG TAB PO SCH (18:06)
[2021-03-08 20:00] VITALS: BP 127/62
[2021-03-08] MEDS ORDERED: ZOLPIDEM TARTRATE 5 MG TAB PO PRN (21:00)
[2021-03-08] MEDS: GABAPENTIN 300 MG CAP PO SCH (22:39)
[2021-03-08] MEDS: CIPROFLOXACIN 500 MG TAB PO SCH (22:39)
[2021-03-09] VITALS (7 sets, daily range): BP systolic 133–149; BP diastolic 68–72
[2021-03-09] MEDS ORDERED: LEVOTHYROXINE SODIUM 75 MCG TAB PO SCH (06:00)
[2021-03-09] MEDS ORDERED: LOSARTAN POTASSIUM 100 MG TAB PO SCH (09:00)
[2021-03-09] MEDS ORDERED: FOLIC ACID PO SCH (09:00)
[2021-03-09] MEDS ORDERED: MV MN PO SCH (09:00)
[2021-03-09] MEDS ORDERED: ASPIRIN 81 MG CHEW TAB PO SCH (09:00)
[2021-03-09] MEDS ORDERED: MULTIVITAMINS/MINERALS TAB PO SCH (09:00)
[2021-03-09] MEDS ORDERED: CLOPIDOGREL BISULFATE 75 MG TAB PO SCH (09:00)
[2021-03-09] MEDS ORDERED: [UNRECOGNIZED DRUG - OTHER] PO SCH (09:00)
[2021-03-09] MEDS ORDERED: ATENOLOL 100 MG TAB PO SCH (09:00)
[2021-03-09] MEDS ORDERED: HERB PO SCH (09:00)
[2021-03-09] MEDS ORDERED: AMLODIPINE BESYLATE 10 MG TAB PO SCH (09:00)
[2021-03-09] MEDS ORDERED: PANTOPRAZOLE SOD 40 MG TABEC PO SCH (09:00)
[2021-03-09] MEDS ORDERED: OMEGA 3 POLYUNSAT FATTY ACIDS 1000 MG SOFTGEL PO SCH (09:00)
[2021-03-09] MEDS ORDERED: IRON PO SCH (09:00)
[2021-03-09] MEDS ORDERED: FERROUS SULFATE 325 MG TAB PO SCH (09:00)
[2021-03-09] MEDS: TRIMETHOPRIM/SULFAMETHOXAZOLE 160-800 MG TAB PO SCH (09:19)
[2021-03-09] MEDS: CIPROFLOXACIN 500 MG TAB PO SCH (09:19)
[2021-03-09] MEDS: GABAPENTIN 300 MG CAP PO SCH ×2 (09:22→15:00)
[2021-03-09] MEDS ORDERED: ATENOLOL 50 MG TAB PO ONE (09:30)
[2021-03-09] MEDS ORDERED: ONDANSETRON HCL 4 MG ORAL DISINTEGRATING TAB PO PRN (15:30)
[2021-03-09] MEDS ORDERED: SIMVASTATIN 20 MG TAB PO SCH (21:00)
[2021-03-10] MEDS ORDERED: ATENOLOL 100 MG TAB PO SCH (09:00)
[2021-03-10] MEDS ORDERED: METFORMIN HCL 500 MG TAB PO SCH (17:00)
== END 2021-03-09 16:57 | disposition home or self-care (01) ==
LOC: CATH LAB 09:24 → CATH LAB V 14:14 → MED/SURG 16:38
PROVIDERS: ADMIT Internal Medicine Interventional Cardiology; ATTEND Internal Medicine Interventional Cardiology
DX: E11.51 Type 2 diabetes mellitus with diabetic peripheral angiopathy without gangrene (principal); I70.228 Atherosclerosis of native arteries of extremities with rest pain, other extremity; I10 Essential (primary) hypertension; Z20.822 Contact with and (suspected) exposure to COVID-19; Z79.82 Long term (current) use of aspirin; Z79.02 Long term (current) use of antithrombotics/antiplatelets; Z79.84 Long term (current) use of oral hypoglycemic drugs; Z79.899 Other long term (current) drug therapy
CPT/HCPCS: 36415 ×2; 37186; 37224; 37229; 75625; 76937; 80053; 82948; 83880; 85025; 97161; 97530; C1724; C1725; C1760; C1769 ×3; C1887 ×2; C2623; G0378 ×2; J2001; J2250; J3010; J7030; Q9967; S0164; U0002; 36247; 37225; 75716; 99152; 99153

== ENCOUNTER → 2024-10-01 | Outpatient (REF) | payer MEDICARE ==
[~2024-10-01] MED LIST changes: +CENTRUM ADULTS1 EACH PO; +FEROSUL325 MG PO; +FISH OIL 1,0001 EAC2 PO; +IOPAMIDOL 370 MG/ML 100 ML INFUS..BTL INJ ONE; +LOSARTAN POTAS100 MG PO; +OMEPRAZOLE40 MG PO; +PRAVASTATIN SOD40 MG PEG; +SODIUM CHLORIDE 0.9% 100 ML ONE; +VITAMIN D3 COM1 EACH PO; +ferrous sulfate
[2024-10-01 16:02] LABS: EST GLOMERULAR FILTRATION RATE 62.0 ML/MIN (>=60)
== END ==
LOC: CT 14:56
PROVIDERS: ATTEND Internal Medicine Interventional Cardiology
DX: I65.23 Occlusion and stenosis of bilateral carotid arteries (principal)
CPT/HCPCS: 36415; 70498; 82565; 84520; J7050; Q9967